=== PATIENT | male | born 1945 | race Caucasian/White ===

== ENCOUNTER → 2018-01-08 10:12 | Outpatient (CLI) | payer MEDICARE, SELFPAY ==
[2018-01-08 11:51] LABS: AST(SGOT) 23 U/L (15-37); Alanine Aminotransfer ALT/SGPT 29 U/L (16-61); Albumin, Serum 3.8 g/dL (3.2-5.0); Alkaline Phosphatase 61 U/L (45-117); Bilirubin, Direct 0.11 mg/dL (0.00-0.30); Cholesterol 167 mg/dL (200); Globulin 3.5 g/dL (2.2-4.2); High Density Lipoprotein 45 mg/dL; Protein, Total 7.3 g/dL (6.4-8.2); Triglycerides 201 mg/dL; Very Low Density Lipoprotein 40 mg/dL (5-40)
== END ==
PROVIDERS: Family Provider Internal Medicine; PCP Internal Medicine; Visit Provider Internal Medicine Cardiovascular Disease
DX: E78.5 Hyperlipidemia, unspecified (principal); Z79.899 Other long term (current) drug therapy
CPT/HCPCS: 36415; 80061; 80076

== ENCOUNTER → 2018-09-30 | Outpatient (CLI) | payer MEDICARE, SELFPAY ==
[2018-09-15 13:31] VITALS: BMI 23.8
[2018-09-30 12:56] LABS: AST(SGOT) 22 U/L (15-37); Alanine Aminotransfer ALT/SGPT 26 U/L (16-61); Albumin, Serum 3.8 g/dL (3.2-5.0); Alkaline Phosphatase 62 U/L (45-117); Bilirubin, Direct 0.08 mg/dL (0.00-0.30); Cholesterol 160 mg/dL (200); Globulin 3.3 g/dL (2.2-4.2); High Density Lipoprotein 47 mg/dL; Protein, Total 7.1 g/dL (6.4-8.2); Triglycerides 220 mg/dL; Very Low Density Lipoprotein 44 mg/dL (5-40)
== END | disposition home or self-care (01) ==
PROVIDERS: Family Provider Internal Medicine; PCP Internal Medicine; Referring Provider Internal Medicine Cardiovascular Disease; Visit Provider Internal Medicine Cardiovascular Disease
DX: E78.00 Pure hypercholesterolemia, unspecified (principal)
CPT/HCPCS: 36415; 80061; 80076

== ENCOUNTER → 2019-04-04 | Outpatient (CLI) | payer MEDICARE, SELFPAY ==
[2018-09-15 13:31] VITALS: BMI 23.8
[2019-04-04 12:08] LABS: AST(SGOT) 21 U/L (15-37); Alanine Aminotransfer ALT/SGPT 25 U/L (16-61); Albumin, Serum 3.8 g/dL (3.2-5.0); Alkaline Phosphatase 60 U/L (45-117); Bilirubin, Direct 0.09 mg/dL (0.00-0.30); Cholesterol 125 mg/dL (200); Globulin 3.5 g/dL (2.2-4.2); High Density Lipoprotein 52 mg/dL; Protein, Total 7.3 g/dL (6.4-8.2); Triglycerides 146 mg/dL; Very Low Density Lipoprotein 29 mg/dL (5-40)
== END | disposition home or self-care (01) ==
PROVIDERS: Family Provider Internal Medicine; PCP Internal Medicine; Referring Provider Internal Medicine Cardiovascular Disease; Visit Provider Internal Medicine Cardiovascular Disease
DX: E78.00 Pure hypercholesterolemia, unspecified (principal)
CPT/HCPCS: 36415; 80061; 80076

== ENCOUNTER → 2019-10-05 11:12 | Outpatient (CLI) | payer MEDICARE, SELFPAY ==
[2019-04-07 10:16] VITALS: BMI 23.5
[2019-10-05 11:51] LABS: AST(SGOT) 35 U/L (15-37); Alanine Aminotransfer ALT/SGPT 42 U/L (16-61); Albumin, Serum 3.9 g/dL (3.2-5.0); Alkaline Phosphatase 70 U/L (45-117); Bilirubin, Direct 0.11 mg/dL (0.00-0.30); Cholesterol 155 mg/dL (200); Globulin 3.5 g/dL (2.2-4.2); High Density Lipoprotein 48 mg/dL; Protein, Total 7.4 g/dL (6.4-8.2); Triglycerides 205 mg/dL; Very Low Density Lipoprotein 41 mg/dL (5-40)
== END ==
PROVIDERS: PCP Internal Medicine; Referring Provider Internal Medicine Cardiovascular Disease; Visit Provider Internal Medicine Cardiovascular Disease
DX: E78.00 Pure hypercholesterolemia, unspecified (principal)
CPT/HCPCS: 36415; 80061; 80076

== ENCOUNTER → 2020-10-10 11:32 | Outpatient (CLI) | payer MEDICARE, SELFPAY ==
[2019-11-07 10:02] VITALS: BMI 22.8
[2020-10-10 13:04] LABS: AST(SGOT) 18 U/L (15-37); Alanine Aminotransfer ALT/SGPT 21 U/L (16-61); Albumin, Serum 3.8 g/dL (3.2-5.0); Alkaline Phosphatase 56 U/L (45-117); Bilirubin, Direct 0.13 mg/dL (0.00-0.30); Cholesterol 148 mg/dL (200); Globulin 3.3 g/dL (2.2-4.2); High Density Lipoprotein 52 mg/dL; Protein, Total 7.1 g/dL (6.4-8.2); Triglycerides 170 mg/dL; Very Low Density Lipoprotein 34 mg/dL (5-40)
== END ==
PROVIDERS: PCP Internal Medicine; Referring Provider Internal Medicine Cardiovascular Disease; Visit Provider Internal Medicine Cardiovascular Disease
DX: E78.00 Pure hypercholesterolemia, unspecified (principal)
CPT/HCPCS: 36415; 80061; 80076

== ENCOUNTER 2021-02-11 11:34 | Day surgery (SDC) | payer MEDICARE, SELFPAY ==
[2020-10-18 14:57] VITALS: BMI 23.8
--- NOTE | 2021-02-11 11:58 | HP.PCM_ITS ---
History and Physical Date of Admission: 02/11/21 Aquiles Cox is a 75 year old male who is scheduled for Outpatient Colonoscopy (denies any current problems) and GERD (but symptoms are improved with daily pepcid daily) ? ? The patient was seen by 12/04/2015?for colonoscopy and upper endoscopy for symptoms heme positive. ?The procedures were performed with MAC sedation. The procedure report has been reviewed and findings as follows: ? Impression: Need transverse follow-up, biopsied off. Sigmoid and descending diverticulosis Impression: Normal upper gastrointestinal endoscopy, lower esophageal sphincter at 40 cm. Biopsies were taken for histology and H. Pylori Pathology: A. Gastric antrum, biopsy: Chronic gastritis.Negative H pylori B. Transverse colon polyp, biopsy: Fragments of tubular adenoma. -Recommended 5-year colonoscopy surveillance ? HISTORY OF PRESENT ILLNESS Aquiles Cox is a 75 year old male with a past medical history GERD, CAD-none angiographically significant, Prinzmetal/vasospastic angina, ventricular fibrillation, cardiac arrest, ischemic cardiomyopathy (with preserved LV wall motion/systolic function), status post ICD placement (2000 with generator change in 2015), seizures, dementia ? who presents today for an evaluation of colon cancer screening. is with patient and answering questions d/t patient history of dementia. Patient does not answer questions but does follow simple commands. ? The patient/ denies change in bowel habits, black stool, rectal bleeding or abdominal pain. Having a bowel movement every 3-4 days which reports this is patient's normal. Reports patient does wear depends because he does not recognize the feeling of needing to have a bowel movement or urinate until last minute he rushes to the bathroom, at times will not make on time. states no black stool or blood in stool. Denies change in appetite. Denies fever or chills or weight loss. Denies coughing or clearing of the throat while eating regurg or hoarseness. Reports he has a history or heartburn with regurgitation and was placed on pepcid a long time ago. ? ? REVIEW OF SYSTEMS: GENERAL: No weight loss, malaise or fevers HEENT: Negative for frequent or significant headaches, No changes in hearing or vision, no nose bleeds or other nasal problems NECK: Negative for lumps, goiter, pain and significant neck swelling RESPIRATORY: Negative for cough, hemoptysis, wheezing, COPD, dyspnea or shortness of breath CARDIOVASCULAR: Negative for chest pain, leg swelling, hypertension, CHF or palpitations, patient does have a defibrillator GI: See HPI : No history of dysuria, frequency or incontinence MUSCULOSKELETAL: Negative for joint pain or swelling, back pain or muscle pain SKIN: Negative for lesions, rash, and itching PSYCH: Patient has a history of dementia with hallucinations HEMATOLOGY/LYMPHOLOGY Negative for prolonged bleeding, bruising easily or swollen nodes ENDOCRINE: Negative for cold or heat intolerance, polyuria, polydipsia and goiter NEURO: Seizures- reports it's been a long time ago since last seizure - when he does have a seizure he stares All other reviewed and negative other than HPI.WORKUP:[id number]} PAST MEDICAL HISTORY PAST MEDICAL HISTORY Diagnosis Date ? CARD DEFIBRILL AUTO IMPLANT IN SITU 01/02/2005 ? Dementia, unspecified, with behavioral disturbance 08/24/2013 ? ENCEPHALOPATHY UNSPECIFIED 01/02/2005 ? ANOXIC ? GEN CONVUL EPI W/O MENTN INTRACT 01/02/2005 ? HEMANGIOMA NEC 01/02/2005 ? Hematuria 04/27/2014 ? Hyperactivity of bladder 11/22/2009 ? HYPERLIPIDEMIA NEC/NOS 01/02/2005 ? HYPERTENSION NOS 01/02/2005 ? 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 Orofacial dyskinesia 01/02/2005 ? PRINZMETAL ANGINA 01/02/2005 ? URINARY INCONTINENCE, UNSPECIFIED 01/02/2005 ? BLADDER DYSYNERGIA ? PAST SURGICAL HISTORY PAST SURGICAL HISTORY Procedure Laterality Date ? COLONOSCOP W/ OR W/O BRSH SPEC ? 09/02/2004 ? Colonoscopy ? CYSTOSCOPY,INDUSTRIAL COOK URETHROTOMY,MALE ? 03/02/02 ? CYSTOSCOPY,INDUSTRIAL COOK URETHROTOMY,MALE ? 04/16/2005 ? IMPLNT/REPL DEFIB PAD/GENER THORCOTM ? 06/2015 ? replaced. ? IMPLNT/REPL DEFIB PAD/THORACOT ? 09/17/2006 ? AICD replaced. ? INSERT/REPL DEFIB LEAD/GENER OTHR ? 05/2000 ? AICD ? LEFT HEART CATH,PERCUTANEOUS ? 12/30/2006 ? Cardiac cath, L heart ? CURRENT MEDICATIONS Current Outpatient Medications Medication Sig Dispense Refill ? traZODone (DESYREL) 100 mg tablet Take 1 tablet by mouth daily at bedtime. 90 tablet 3 ? lamoTRIgine (LAMICTAL) 100 mg tablet Take 1 tablet by mouth once daily. 90 tablet 3 ? famotidine (PEPCID) 20 mg tablet Take 1 tablet by mouth once daily. Take 1 tablet by mouth 1-2 times daily 90 tablet 3 ? oxybutynin ER (DITROPAN XL) 15 mg 24 hr Extended Rel Tab Take 1 tablet by mouth once daily. 90 tablet 3 ? pravastatin (PRAVACHOL) 80 mg tablet Take 1 tablet by mouth once daily. 90 tablet 3 ? OLANZapine (ZYPREXA) 7.5 mg tablet Take 1 tablet by mouth daily at bedtime. 90 tablet 3 ? amLODIPine (NORVASC) 2.5 mg tablet Take 1 tablet by mouth once daily. 90 tablet 3 ? diphenhydrAMINE (BENADRYL) 12.5 mg/5 mL elixir Take 10 mL by mouth three times daily as needed (agitation.). ? ? ? MULTIVITAMIN TAB Take one(1) tablet daily. ? 0 ? CALCIUM 600 + D(3) 600 MG-200 UNIT TAB Take one(1) tablet twice daily. ? 0 ? ASPIRIN 325 MG ORAL TBEC Take one(1) tablet daily. ? 0 ? peg 3350-Electrolytes (GOLYTELY) 236-22.74-6.74 -5.86 gram suspension Take 4,000 mL by mouth one time only for 1 dose. Refer to printed prep instructions from your provider. 1 Bottle 0 ? No current facility-administered medications for this visit. ? ? ALLERGIES ALLERGIES Allergen Reactions ? Actifed [Triprolidi* ? ? ? SOCIAL HISTORY Social History ? Tobacco Use ? Smoking status: Former Smoker ? ? Quit date: 05/28/2000 ? ? Years since quittin.5 ? Smokeless tobacco: Never Used Vaping Use ? Vaping Use: Never used Substance Use Topics ? Alcohol use: No ? ? Comment: 10-12 per day, quit 2000 ? Drug use: No ? ? FAMILY HISTORY (grandparents, parents, brothers, sisters, aunts, or uncles) Ulcerative Colitis: No Crohn's Disease: No Colon Cancer: No Colon Polyps: No IBS: No Celiac disease: No ? PHYSICAL EXAMINATION BP 108/58 Pulse 73 Ht 5' 6.535 (1.69m) Wt 144 lb (65.3kg) SpO2 97% BMI 22.87 kg/(m^2). ? General Appearance: Well appearing, alert, in no acute distress, well-hydrated, well nourished. Eyes: PERRLA, conjunctiva and sclera normal Oropharynx: Lips, tongue, and oral mucosa normal. There is no thrush or oral ulcers. Lungs:breath sounds clear to auscultation bilaterally, no crackles, rhonchi, or wheezes Heart: regular rate and rhythm, no murmurs or gallops. Abdomen: not distended, normal bowel sounds, soft and depressible, no guarding or rebound, no palpable mass, no organomegaly Rectal exam: Deferred. Extremities: no cyanosis or edema Skin: no jaundice, no spider angiomas, no palmar erythema Neuro:alert, oriented x 3, pleasant and in no acute distress ? ? IMPRESSION (D12.3) Adenomatous polyp of transverse colon (primary encounter diagnosis) ? ? ? PLAN ASSESSMENT/PLAN: 1. Adenomatous polyp of transverse colon - ICD9: 211.3, ICD10: D12.3 - COLONOSCOPY, SCREENING, HIGH RISK - patient will need to have cardiac clearance before scheduling colonoscopy - Patient will have procedure done at [facility] with MAC sedation ? ? Plan is to follow up after test(s) and as needed (prn). This patient will be scheduled for a colonoscopy using Golytely as the prep. The preparation, as well as the procedure, has been explained in detail. The risks, benefits, anticipated outcomes and possible complications, including failure to complete the endoscopy and perforation, were mentioned. ?I explained the procedure in understandable terms and the patient was given printed material concerning the planned procedure. The patient had the opportunity to ask questions concerning the planned procedure. The patient freely consents to the planned procedure. ? The patient is instructed to contact PCP for instructions regarding diabetic medication, which may require adjustment during bowel preparation and/or day of procedure. ? The patient is scheduled for a procedure at the [facility]. I have explained that his/her health and safety, as well as that of our staff is important. The risk of exposure to, or potential harm posed by the COVID-19 virus with having a procedure at this time is as minimal as possible. Measures are being taken to minimize any potential risk of infection. I have explained that he/she will see that the staff will be wearing masks and gloves. The patient's temperature will be taken on arrival, they will be asked a series of questions to reassess current wellness, and asked to use hand administrative aide foam. The bed areas are cleaned and the procedure rooms are thoroughly disinfected between patients. Procedure rooms will be alternated to give the disinfection more than enough time to ensure adequate protection for all involved. ? The patient is asked to call with any questions for concerns, or should there be any change in health status between now and the scheduled procedure. ? I have personally interviewed and examined this patient. I have read the information the nurse documented in this encounter. I spent a total of?at least 30?minutes on the date of the service which included completing clinical documentation, counseling and educating the patient/family/caregiver, ordering medications, tests, or procedures and care coordination (not separately reported). ? Magalis Jorgensen APRN.COMMUNICATION INSTRUCTOR I have re-examined the patient. There are no clinical changes since date of exam.
[2021-02-11 12:00] VITALS: BP 110/73; PULSE 72; RESP 18; TEMP 36.4; O2SAT 98; BMI 22.0
[2021-02-11] MEDS: Lactated Ringers 1,000 ML 100 ML IV (12:16)
[2021-02-11 13:26] VITALS: BP 110/73; BP 137/77; PULSE 56; RESP 16; TEMP 36.6; O2SAT 95
--- NOTE | 2021-02-11 13:26 | OP.COLON_ITS ---
Patient Name: Aquiles Cox Procedure Date: 02/11/2021 12:50 PM Date of : 1945 Age: 75 Procedure: Colonoscopy Indications: High risk colon cancer surveillance: Personal history of colonic polyps Providers: Phong Beebe MD Medicines: See the Anesthesia note for documentation of the administered medications Patient Profile: This is a 75 year old male. Refer to note in patient chart for documentation of history and physical. Last Colonoscopy: 2015. Complications: No immediate complications. Estimated blood loss: None. Procedure: Pre-Anesthesia Assessment: - Prior to the procedure, a History and Physical was performed, and patient medications and allergies were reviewed. The patient's tolerance of previous anesthesia was also reviewed. The risks and benefits of the procedure and the sedation options and risks were discussed with the patient. All questions were answered, and informed consent was obtained. Prior Anticoagulants: The patient has taken aspirin, last dose was 7 days prior to procedure. ASA Grade Assessment: III - A patient with severe systemic disease. After reviewing the risks and benefits, the patient was deemed in satisfactory condition to undergo the procedure. After I obtained informed consent, the scope was passed under direct vision. Throughout the procedure, the patient's blood pressure, pulse, and oxygen saturations were monitored continuously. The adult colonoscope was introduced through the anus and advanced to the cecum, identified by appendiceal orifice and ileocecal valve. The colonoscopy was performed without difficulty. The patient tolerated the procedure well. The quality of the bowel preparation was adequate to identify polyps 6 mm and larger in size. Scope In: 1:07:10 PM Scope Withdrawal Time 0 hours 6 minutes 40 seconds Scope Out: 1:20:35 PM Total Procedure Duration Time 0 hours 13 minutes 25 seconds Findings: Multiple small and large-mouthed diverticula were found in the sigmoid colon and descending colon. No biopsies or other specimens were collected for this exam. Non-bleeding internal hemorrhoids were found during retroflexion. The hemorrhoids were mild and small. Impression: - Diverticulosis in the sigmoid colon and in the descending colon. No specimens collected. - Non-bleeding internal hemorrhoids. Recommendation: - Repeat colonoscopy in 10 years for screening purposes. - Return to nurse practitioner in 1 week. - Continue present medications. - Resume aspirin at prior dose today. Procedure Code(s): --- Professional --- 96336, Colonoscopy, flexible; diagnostic, including collection of specimen(s) by brushing or washing, when performed (separate procedure) Diagnosis Code(s): --- Professional --- Z86.010, Personal history of colonic polyps K64.8, Other hemorrhoids K57.30, Diverticulosis of large intestine without perforation or abscess without bleeding CPT copyright 2017 [employer]. All rights reserved. The codes documented in this report are preliminary and upon sample grader review may be revised to meet current compliance requirements. MD Phong Roper MD 02/11/2021 1:26:10 PM This report has been signed electronically. Number of Addenda: 0 Note Initiated On: 02/11/2021 12:50 PM
--- NOTE | 2021-02-11 13:26 | OP.CCLET_ITS ---
02/11/2021 Juwan Ac [address] [place] [address] Re : Colonoscopy procedure for Aquiles Cox Dear Dr. Ac This procedure was performed on Thursday, February 11, 2021. My impressions and recommendations are as follows: Impressions : - Diverticulosis in the sigmoid colon and in the descending colon. No specimens collected. - Non-bleeding internal hemorrhoids. Recommendations : - Repeat colonoscopy in 10 years for screening purposes. - Return to nurse practitioner in 1 week. - Continue present medications. - Resume aspirin at prior dose today. My findings are described in the full procedure note, which is enclosed. If I can be of further assistance, please feel free to contact me at Doctor phone number(s): , Work: . Sincerely, MD Phong Roper MD 02/11/2021 1:26:10 PM This report has been signed electronically.
[2021-02-11 13:31] VITALS: BP 110/73; BP 114/72; PULSE 56; RESP 16; O2SAT 98
[2021-02-11 13:36] VITALS: BP 110/73; BP 126/65; PULSE 53; RESP 16; O2SAT 97
[2021-02-11 13:40] VITALS: BP 110/73; BP 132/69; PULSE 53; RESP 16; TEMP 36.2; O2SAT 98
[2021-02-11 14:14] VITALS: BP 110/73
== END 2021-02-11 14:15 | disposition home or self-care (01) ==
LOC: EN 11:35 → AC 11:36
PROVIDERS: PCP Internal Medicine; Referring Provider Internal Medicine; Visit Provider Surgery
PROC: 0DJD8ZZ Inspection of Lower Intestinal Tract, Via Natural or Artificial Opening Endoscopic (ICD-10-PCS; CPT 45378; principal; 2021-02-11 12:40)
DX: K57.30 Diverticulosis of large intestine without perforation or abscess without bleeding (principal); K64.8 Other hemorrhoids; Z86.010 Personal history of colon polyps; Z12.11 Encounter for screening for malignant neoplasm of colon; K21.9 Gastro-esophageal reflux disease without esophagitis; I25.10 Atherosclerotic heart disease of native coronary artery without angina pectoris; F03.90 Unspecified dementia, unspecified severity, without behavioral disturbance, psychotic disturbance, mood disturbance, and anxiety; I10 Essential (primary) hypertension; Z95.810 Presence of automatic (implantable) cardiac defibrillator; Z79.899 Other long term (current) drug therapy; Z87.891 Personal history of nicotine dependence
CPT/HCPCS: 45378; J7120; J2405

== ENCOUNTER 2021-03-20 19:15 | Emergency (ER) | payer MEDICARE, SELFPAY ==
[2021-03-20 19:16] VITALS: BP 130/61; PULSE 64; RESP 15; TEMP 35.5; O2SAT 100; BMI 22.7
--- NOTE | 2021-03-20 19:22 | RAD_ITS ---
STUDY: XR Wrist Min 3 Views REASON FOR EXAM: Male, 75 years old. PAIN PAIN THROUGH CENTER OF LEFT WRIST. PATIENT DID NOT REMEMBER FALLING, THE PERSON WITH THE PATIENT EXPLAINED HX. TECHNIQUE: XR Wrist Min 3 Views COMPARISON: None. FINDINGS: There is demineralization of the radius and ulna. There are no acute findings of the radiocarpal articulation. Normal distal radioulnar articulation. Normal carpal bones. Normal carpal articulations. There are no acute findings of the carpometacarpal articulation of the thumb. Normal second through fifth carpometacarpal articulations. Fracture distal radial metaphysis. There is mild impaction. There are no acute findings of the visualized metacarpal bones. There is non-specific soft tissue swelling. RAD/Wrist min 3 Views IMPRESSION: Fracture distal radial metaphysis. There is mild impaction. Electronically Signed: Tacos Araya MD at 19:45 EDT , Service support ,
--- NOTE | 2021-03-20 19:22 | CT_ITS ---
STUDY: CT BRAIN WITHOUT CONTRAST REASON FOR EXAM: Male, 75 years old. FALL Individualized dose optimization techniques were used for this CT. TECHNIQUE: Transaxial CT imaging of the brain was performed without administration of intravenous contrast material. COMPARISON: 11.03.13 FINDINGS: There are calcifications around the carotid artery. These are noted in the cavernous carotid arteries. Normal calvarium. There is no underlying fracture. Soft tissue swelling of the scalp- right forehead. There is moderate cerebral atrophy with widening of the extra-axial spaces and ventricular dilatation. Normal white matter tracts of the cerebral hemispheres. Normal basal ganglia and thalami. Normal brainstem. There is mild cerebellar atrophy. There is no intracranial hemorrhage. There are no findings of an acute ischemic infarction. Normal visualized paranasal sinuses. ASPECTS Score for Acute Strokes: 02/24 CT/Brain/Head without Contrast IMPRESSION: There is no underlying fracture. Soft tissue swelling of the scalp- right forehead. Electronically Signed: Tacos Araya MD at 19:56 EDT , Service support ,
--- NOTE | 2021-03-20 19:22 | CT_ITS ---
EXAM: CT SPINE - CERVICAL WITHOUT IV REASON FOR EXAM: Male, 75 years old. NECK PAIN FALL,HEAD INJURY Individualized dose optimization techniques were used for this CT. TECHNIQUE: Multiplanar images were obtained of the cervical spine. IV contrast was not utilized. COMPARISON: None. FINDINGS: The vertebral bodies do maintain their height. The odontoid process is intact. There is no anterolisthesis or fracture. No pre-vertebral soft tissue swelling is seen. The intravertebral disc height is lost. There are scattered lymph nodes in the neck. There are degenerative changes of the osseous structures. There is bilateral facet arthropathy. There are scattered levels of foraminal stenosis. CT/Spine Cervical without Contras IMPRESSION: Degenerative changes of the cervical spine. There are no acute findings. Electronically Signed: Tacos Araya MD at 19:56 EDT , Service support ,
--- NOTE | 2021-03-20 21:00 | EDS_ITS ---
HPI HPI - Fall History of Present Illness Chief Complaint: Fall Informant: spouse/S.O. Narrative Narrative: Patient presents here with spouse evaluation unwitnessed fall head laceration left wrist pain. Patient [id number]. History of dementia. Per spouse patient likes to go outside in the cold and run back in. She heard him fall inside the house. Tetanus is in the last 5 years. There is laceration of the forehead. He takes aspirin therapy. Patient currently baseline. Reports recent left wrist fracture followed by orthopedics Dr. Vazquez just had cast removed a week ago. Images performed at outside facility. Tetanus Immunization: <5 years Prior similar symptoms: Yes PFSH PFSH Medical History Atherosclerotic heart disease of [place] coronary artery without angina pectoris Cardiology follow-up encounter Closed left forearm fracture Former smoker Gastric reflux High cholesterol History of echocardiogram History of renal disease History of stress test Hyperlipidemia Hypertension Ischemic cardiomyopathy Memory deficit Nonspecific abnormal unspecified cardiovascular function study Presence of automatic implantable cardioverter-defibrillator Prinzmetal angina Prostate disease Pure hypercholesterolemia Seizures Ventricular fibrillation Wears dentures Home Medications amlodipine 2.5 mg PO DAILY 07/04/15 [History Last Taken 07/05/15] aspirin 325 mg PO DAILY@0800 07/04/15 [History Last Taken Unknown] calcium carbonate-vitamin D3 1 ea PO BID 07/04/15 [History Last Taken Unknown] famotidine 20 mg PO DAILY 07/04/15 [History Last Taken Unknown] multivitamin with folic acid 1 tab PO QHS 07/04/15 [History Last Taken Unknown] oxybutynin chloride 15 mg PO DAILY 07/04/15 [History Last Taken 07/05/15] trazodone 100 mg PO QHS 07/04/15 [History Last Taken Unknown] olanzapine 7.5 mg PO QHS 12/03/15 [History Last Taken Unknown] pravastatin 80 mg tablet 80 mg PO QHS #90 tab 12/28/17 [Rx Last Taken Unknown] lamotrigine 100 mg tablet 100 mg PO DAILY tab 09/15/18 [History Last Taken Unknown] diphenhydramine HCl [Benadryl] 25 mg PO Q6H PRN 02/07/21 [History Last Taken Unknown] Allergy/AdvReac Type Severity Reaction Status Date / Time pseudoephedrine Allergy SEVERE Verified 03/20/21 19:19 HEADACHE triprolidine Allergy SEVERE Verified 03/20/21 19:19 HEADACHE Family History Mother CAD (coronary artery disease) Surgical History History of cardiac catheterization History of esophagogastroduodenoscopy (EGD) History of hemorrhoidectomy History of shoulder surgery History of tonsillectomy Hx of colonoscopy Social History Smoking Status: Former smoker alcohol intake: never substance use type: does not use caffeine: Yes Type: coffee Number of servings: 10 what type of physical activity do you participate in: none seatbelt use: always do you feel safe at home: Yes ROS ROS ED Constitutional Constitutional ED: Denies chills, fever(s) or sweats Eyes Eyes: Denies change in vision ENT ENT ED: Denies dysphagia or sore throat Cardiovascular Cardiovascular: Denies chest pain, leg edema, palpitations or racing heartbeat Respiratory/Chest Respiratory/Chest: Denies cough, dyspnea or dyspnea on exertion Gastrointestinal Gastrointestinal: Denies abdominal pain, diarrhea, nausea or vomiting Genitourinary Genitourinary ED: Denies dysuria, hematuria or urinary frequency Musculoskeletal Musculoskeletal: Denies back pain, extremity pain or neck pain Integumentary Denies rash or wounds Neurologic Neurologic: Denies headache(s), paresthesias or weakness EXAM Physical Exam Const Vital Signs: 03/20/21 19:16 03/20/21 20:19 03/20/21 21:39 Temperature 96 F L Temperature Source Temporal Pulse Rate 64 57 L Respiratory Rate 15 14 Respiratory Effort Normal Non-Labored Respiratory Depth Normal Respiratory Pattern Normal Blood Pressure 130/61 H 143/64 H Blood Pressure Mean 84 90 Pulse Ox 100 Oxygen Delivery Method Room Air Room Air Room Air 03/20/21 22:45 Temperature Temperature Source Pulse Rate 66 Respiratory Rate 16 Respiratory Effort Respiratory Depth Respiratory Pattern Blood Pressure 153/79 H Blood Pressure Mean Pulse Ox 99 Oxygen Delivery Method Positive well nourished and well developed General Appearance ED: well developed and NAD HEENT Reports moist mucous membranes HEENT Narrative: Contusion right side of forehead with a 1 cm laceration with swelling. No active bleeding. Swelling over the nasal bridge. No septal hematoma. normocephalic Eyes PERRL, EOMs intact bilaterally and conjunctivae normal Eyes Narrative: No proptosis or entrapment. No periorbital ecchymosis. No trismus of the jaw. General Eye ED: Yes normal appearance of both eyes Neck no lymphadenopathy and supple General: Negative for tenderness Chest Wall Chest: Negative for tenderness Resp normal respiratory effort and normal air movement Effort and Inspection: symmetric chest movement; Negative for respiratory distress Cardio regular rate, regular rhythm and no murmurs Peripheral Pulses: pulses 2+ throughout GI normal to inspection, nondistended, normoactive bowel sounds and non-tender Palpation: Negative for guarding or rebound tenderness present Back/Spine no CVA tenderness and no thoracic nor lumbar tenderness Extremity Extremity Narrative: Left upper extremity: No elbow or wrist tenderness. Skin intact. Neurovascular intact. General Extremety ED: Negative for edema or tenderness General Extremity: Negative for edema Neuro no sensory deficits noted Neuro Narrative: Awake, baseline dementia. Sensorium / Orientation: awake Skin no rashes or lesions noted and no wounds MDM MDM MDM Narrative Medical decision making narrative: Tetanus is the last 5 years. Patient had orders from triage with head and neck CT shows no acute process. Left wrist was obtained noted per radiology distal impacted radius fracture. He had no bony tenderness with additional inspiration from spouse reporting recent fracture cast removed a week ago after a 6-week casting. This is likely healing fracture at this point. He is neurovascular intact. Laceration repaired. Wound care discussed with spouse. Follow-up with PCP 5 to 7 days for suture removal. All questions answered. Procedure note: Verbal consent from spouse. Normal sterile conditions. LET topically was placed. Wound was cleansed with normal saline. Closed with a total of 2, 6-0 nylon sutures simple interrupted with good approximation. Patient taught procedure well. Bacitracin placed over the wound and abrasions. Patient tolerate procedure well. Radiography Diagnostic Testing: Clinical Impression(s) from Imaging Studies Brain CT 03/20/21 19:22 IMPRESSION: There is no underlying fracture. Soft tissue swelling of the scalp- right forehead. Electronically Signed: Tacos Araya MD at 19:56 EDT , Service support , Cervical Spine CT 03/20/21 19:22 IMPRESSION: Degenerative changes of the cervical spine. There are no acute findings. Electronically Signed: Tacos Araya MD at 19:56 EDT , Service support , Wrist X-Ray 03/20/21 19:22 IMPRESSION: Fracture distal radial metaphysis. There is mild impaction. Electronically Signed: Tacos Araya MD at 19:45 EDT , Service support , Discharge Plan Triage Chief Complaint: Fall ED Provider: Paulo Mitchell Dx/Rx/DC Orders Clinical Impression: Simple laceration of face, Abrasion, Closed fracture of left wrist, Closed head injury, Dementia Instructions: ED Head Injury (Adult), ED Laceration: All Closures Prescriptions: No Action oxybutynin chloride 15 MG tablet extended release 24hr 15 mg PO DAILY RF: 0 trazodone 50 MG tablet 100 mg PO QHS RF: 0 aspirin 325 MG tablet 325 mg PO DAILY@0800 RF: 0 amlodipine 2.5 MG tablet 2.5 mg PO DAILY RF: 0 famotidine 20 MG tablet 20 mg PO DAILY RF: 0 multivitamin with folic acid 1 TABLET tablet 1 tab PO QHS RF: 0 calcium carbonate-vitamin D3 1 EACH tablet 1 ea PO BID RF: 0 lamotrigine 100 mg tablet 100 mg PO DAILY RF: 0 olanzapine 7.5 MG tablet 7.5 mg PO QHS RF: 0 diphenhydramine HCl [Benadryl] 25 mg Capsule 25 mg PO Q6H PRN (Reason: ALLERGIES) RF: 0 pravastatin 80 mg tablet 80 mg PO QHS Qty: 90 RF: 3 Primary Care Provider: Juwan Ac Referrals: Juwan Ac MD [Primary Care Provider] - 5-7 Days Activity Restrictions/Additional Instructions: Head and neck CAT scan negative for acute process. Left wrist x-ray reported impacted fracture, no old for comparison, you report he had his cast for 6 weeks taken off a week ago. There is no pain in this region currently. This is a healing fracture at this point. 2 sutures placed on the forehead. Follow-up with PCP in 5 to 7 days for suture removal. Disposition Disposition: Home, Self Care Discharge Date/Time: 03/20/21 22:47
[2021-03-20] MEDS: Lidocaine/Epi/Tetracaine 50 ML 1 APPLIC TOPICAL (21:05)
[2021-03-20 21:39] VITALS: BP 143/64; PULSE 57; RESP 14
[2021-03-20 22:45] VITALS: BP 153/79; PULSE 66; RESP 16; O2SAT 99
== END 2021-03-20 22:47 | disposition home or self-care (01) ==
LOC: ED 20:51
PROVIDERS: Emergency Provider Emergency Medicine; PCP Internal Medicine
DX: S01.81XA Laceration without foreign body of other part of head, initial encounter (principal); S52.502D Unspecified fracture of the lower end of left radius, subsequent encounter for closed fracture with routine healing; F03.90 Unspecified dementia, unspecified severity, without behavioral disturbance, psychotic disturbance, mood disturbance, and anxiety; I25.10 Atherosclerotic heart disease of native coronary artery without angina pectoris; K21.9 Gastro-esophageal reflux disease without esophagitis; E78.5 Hyperlipidemia, unspecified; I10 Essential (primary) hypertension; Z79.899 Other long term (current) drug therapy; Z87.891 Personal history of nicotine dependence; W18.30XA Fall on same level, unspecified, initial encounter; Y93.89 Activity, other specified; Y92.008 Other place in unspecified non-institutional (private) residence as the place of occurrence of the external cause; Y99.8 Other external cause status; X58.XXXD Exposure to other specified factors, subsequent encounter
CPT/HCPCS: 12011; 70450; 72125; 73110; 99283

== ENCOUNTER → 2021-04-22 13:11 | Outpatient (CLI) | payer MEDICARE, SELFPAY ==
[2021-04-22 13:54] LABS: AST(SGOT) 19 U/L (15-37); Alanine Aminotransfer ALT/SGPT 29 U/L (16-61); Albumin, Serum 3.9 g/dL (3.2-5.0); Alkaline Phosphatase 73 U/L (45-117); Bilirubin, Direct 0.14 mg/dL (0.00-0.30); Cholesterol 138 mg/dL (200); Globulin 3.3 g/dL (2.2-4.2); High Density Lipoprotein 57 mg/dL; Protein, Total 7.2 g/dL (6.4-8.2); Triglycerides 142 mg/dL; Very Low Density Lipoprotein 28 mg/dL (5-40)
== END ==
PROVIDERS: PCP Internal Medicine; Referring Provider Internal Medicine Cardiovascular Disease; Visit Provider Internal Medicine Cardiovascular Disease
DX: E78.00 Pure hypercholesterolemia, unspecified (principal)
CPT/HCPCS: 36415; 80061; 80076

== ENCOUNTER → 2021-10-22 | Outpatient (CLI) | payer MEDICARE, SELFPAY ==
[2021-10-22 13:39] LABS: AST(SGOT) 26 U/L (15-37); Alanine Aminotransfer ALT/SGPT 27 U/L (16-61); Albumin, Serum 3.5 g/dL (3.2-5.0); Alkaline Phosphatase 74 U/L (45-117); Bilirubin, Direct 0.09 mg/dL (0.00-0.30); Cholesterol 209 mg/dL (200); Globulin 3.3 g/dL (2.2-4.2); High Density Lipoprotein 52 mg/dL; Protein, Total 6.8 g/dL (6.4-8.2); Triglycerides 209 mg/dL; Very Low Density Lipoprotein 42 mg/dL (5-40)
== END | disposition home or self-care (01) ==
PROVIDERS: PCP Internal Medicine; Referring Provider Internal Medicine Cardiovascular Disease; Visit Provider Internal Medicine Cardiovascular Disease
DX: E78.00 Pure hypercholesterolemia, unspecified (principal)
CPT/HCPCS: 36415; 80061; 80076

== ENCOUNTER → 2022-04-24 | Outpatient (CLI) | payer MEDICARE, SELFPAY ==
[2022-04-24 14:23] LABS: AST(SGOT) 21 U/L (15-37); Alanine Aminotransfer ALT/SGPT 30 U/L (16-61); Albumin, Serum 3.8 g/dL (3.2-5.0); Alkaline Phosphatase 64 U/L (45-117); Bilirubin, Direct 0.13 mg/dL (0.00-0.30); Cholesterol 148 mg/dL (200); Globulin 3.4 g/dL (2.2-4.2); High Density Lipoprotein 58 mg/dL; Protein, Total 7.2 g/dL (6.4-8.2); Triglycerides 146 mg/dL; Very Low Density Lipoprotein 29 mg/dL (5-40)
== END | disposition home or self-care (01) ==
LOC: LAB 12:54
PROVIDERS: PCP Internal Medicine; Referring Provider Internal Medicine Cardiovascular Disease; Visit Provider Internal Medicine Cardiovascular Disease
DX: I25.10 Atherosclerotic heart disease of native coronary artery without angina pectoris (principal); E78.00 Pure hypercholesterolemia, unspecified
CPT/HCPCS: 36415; 80061; 80076

== ENCOUNTER 2022-08-04 14:30 | Inpatient (IN) | payer MEDICARE, SELFPAY ==
[2022-08-04 14:34] VITALS: BP 157/63; PULSE 87; RESP 18; TEMP 36.7; O2SAT 98; BMI 25.7
--- NOTE | 2022-08-04 15:08 | CT_ITS ---
STUDY: CT BRAIN WITHOUT CONTRAST REASON FOR EXAM: Male, 77 years old. Trauma RADIATION DOSAGE (If Supplied By Facility): CTDIvol = ( 44.99 ) mGy, DLP = ( 812.98 ) mGycm TECHNIQUE: Transaxial CT imaging of the brain was performed without administration of intravenous contrast material. Individualized dose optimization techniques were used for this CT. COMPARISON: CT brain April 16, 2021 FINDINGS: Normal soft tissue structures. Normal calvarium. Normal size ventricles and extra-axial spaces for the patient''s age. There are areas of decreased attenuation within the white matter tracts of the supratentorial brain, consistent with microvascular disease changes. Normal basal ganglia and thalami. Normal brainstem. Normal cerebellum. There is no intracranial hemorrhage. There are no findings of an acute ischemic infarction. Normal visualized paranasal sinuses. CT/Brain/Head without Contrast IMPRESSION: Chronic involutional changes of the brain. Electronically Signed: Leroy Hernandez MD at 16:36 EDT ,
--- NOTE | 2022-08-04 15:08 | CT_ITS ---
STUDY: CT CERVICAL SPINE WITHOUT CONTRAST REASON FOR EXAM: Male, 77 years old. Trauma RADIATION DOSAGE (If Supplied By Facility): CTDIvol = ( 21.21 ) mGy, DLP = ( 427.8 ) mGycm TECHNIQUE: High resolution transaxial imaging was performed without contrast material. Sagittal and coronal images were reconstructed. Individualized dose optimization techniques were used for this CT. COMPARISON: CT cervical spine March 20, 2021 FINDINGS: Normal craniovertebral junction. Normal anterior atlantoaxial articulation. Normal odontoid process. Normal cervical lordosis. Normal vertebral bodies and posterior osseous elements. C2-3: Normal endplates. Normal disc height and morphology. Normal central canal and intervertebral neuroforamina. C3-4: Normal endplates. Decreased disc height and morphology. Normal central canal and narrowed left intervertebral neuroforamina. C4-5: Normal endplates. Decreased disc height and morphology. Normal central canal and narrows bilateral intervertebral neuroforamina. C5-6: Normal endplates. Decreased disc height and morphology. Normal central canal and narrows bilateral intervertebral neuroforamina. C6-7: Normal endplates. Decreased disc height and morphology. Normal central canal and narrows bilateral intervertebral neuroforamina. C7-T1: Normal endplates. Normal disc height and morphology. Normal central canal and intervertebral neuroforamina. Normal visualized soft tissue structures. Calcified plaque in the carotids bilaterally. CT/Spine Cervical without Contras IMPRESSION: No fracture Electronically Signed: Leroy Hernandez MD at 16:42 EDT ,
--- NOTE | 2022-08-04 15:13 | ED.VIS.FALL ---
HPI HPI - Fall History of Present Illness Chief Complaint: Fall Informant: patient, spouse/S.O. and family Narrative Narrative: History is from the patient, his , and his son-in-law. This patient fell out of a chair falling over to the left on Thursday. They helped him get back in and he fell again. He hit his head both times. But there is no loss of consciousness. No nausea and vomiting. However, since then he cannot seem to bear weight on his left leg and intermittently complains of pain at the left hip. Other than that he is at his baseline and acting normally. He has not been coughing. He is urinary really incontinent but this is not changed nor is there been a new odor. No coughing or trouble breathing. His appetite has been just slightly down but he is still eating and drinking. This patient has a history of Prinzmetal's angina going back many years. It sounds like he had a cardiac event that caused brain injury. He is alert oriented x1 most of the time. Occasionally he is a bit better. He is totally at his baseline per both of his family members. They states actually he is a little better today than his average. He knows he is in the hospital. That is not something he would always know. [facility] Medical History Atherosclerotic heart disease of [place] coronary artery without angina pectoris Cardiology follow-up encounter Closed left forearm fracture Former smoker Gastric reflux High cholesterol History of echocardiogram History of renal disease History of stress test Hyperlipidemia Hypertension Ischemic cardiomyopathy Memory deficit Nonspecific abnormal unspecified cardiovascular function study Presence of automatic implantable cardioverter-defibrillator Prinzmetal angina Prostate disease Pure hypercholesterolemia Seizures Ventricular fibrillation Wears dentures Home Medications amlodipine 2.5 mg tablet 2.5 mg PO DAILY 07/04/15 [History Last Taken 07/05/15] calcium carbonate 600 mg-vitamin D3 20 mcg (800 unit) tablet 1 ea PO BID 07/04/15 [History Last Taken Unknown] famotidine 20 mg tablet 20 mg PO DAILY 07/04/15 [History Last Taken Unknown] multivitamin with folic acid 400 mcg tablet 1 tab PO QHS 07/04/15 [History Last Taken Unknown] oxybutynin chloride 15 mg tablet,extended release 24 hr 15 mg PO DAILY 07/04/15 [History Last Taken 07/05/15] trazodone 50 mg tablet 100 mg PO QHS 07/04/15 [History Last Taken Unknown] olanzapine 7.5 mg tablet 7.5 mg PO QHS 12/03/15 [History Last Taken Unknown] pravastatin 80 mg tablet 80 mg PO QHS #90 tabs 12/28/17 [Rx Last Taken Unknown] lamotrigine 100 mg tablet 100 mg PO DAILY 09/15/18 [History Last Taken Unknown] diphenhydramine HCl 25 mg capsule (Benadryl) 25 mg PO Q6H PRN ALLERGIES 02/07/21 [History Last Taken Unknown] aspirin 81 mg tablet,delayed release (Adult Low Dose Aspirin) 81 mg PO DAILY 05/01/22 [History Last Taken Unknown] Allergy/AdvReac Type Severity Reaction Status Date / Time pseudoephedrine Allergy SEVERE Verified 08/04/22 14:38 HEADACHE triprolidine Allergy SEVERE Verified 08/04/22 14:38 HEADACHE Family History Mother CAD (coronary artery disease) Surgical History History of cardiac catheterization History of esophagogastroduodenoscopy (EGD) History of hemorrhoidectomy History of shoulder surgery History of tonsillectomy Hx of colonoscopy Social History Smoking Status: Former smoker alcohol intake: never substance use type: does not use caffeine: Yes Type: coffee Number of servings: 10 what type of physical activity do you participate in: none seatbelt use: always do you feel safe at home: Yes ROS ROS ED ROS Narrative History is limited as the patient has prior brain injury. Review is really done per family Constitutional Constitutional ED: Denies fever(s) ENT ENT ED: Denies rhinorrhea Respiratory/Chest Respiratory/Chest: Denies cough or sputum Gastrointestinal Gastrointestinal: Denies diarrhea or vomiting Genitourinary Genitourinary ED: Reports other Details: No change in the amount or odor of urine. ; Denies dysuria, hematuria or urinary frequency Musculoskeletal Musculoskeletal: Reports other Details: Appears to have left hip area pain. Integumentary Reports other Details: Contusion to left periorbital area. Hematologic/Lymphatic Hematologic/Lymphatic: Reports easy bleeding, easy bruising and other Details: They state that he does bruise easily. Only anticoagulation is baby aspirin. Allergic/Immunologic Allergic/Immunologic ED: Denies urticaria EXAM Physical Exam Narrative Exam Narrative: Patient is sitting in bed. He is awake and alert. He is not sleepy or lethargic. HEENT shows bruising mostly around the left eye. There is no tenderness or bony step-offs though. Eye shows no sign of subconjunctival hemorrhage or actual ocular injury. Range of motion seems intact. Neck is nontender. He will look around the room without any apparent discomfort. Chest shows a pacer ICD in the left. No chest wall tenderness or subcu air. Lungs are clear. Heart is regular. Peripheral pulses are equal. Abdomen is soft, nondistended normal bowel sounds and nontender. Extremities do show some pain around the left hip and pain with that area. He does not want to extend the hip. I can squeeze the distal femur knee and lower extremity and right lower extremity and both upper extremities without any discomfort. There is slight contusion on the left elbow area but no tenderness or limitation of motion Skin shows bruising as above. Neurologically he is awake and alert. He knows his name. He knows he is in a hospital. Family states that for him this is baseline or actually little better than he is on some days. Const Vital Signs: 08/04/22 14:34 08/04/22 16:59 08/04/22 16:59 Temperature 98.0 F 97.8 F Temperature Source Temporal Temporal Pulse Rate 87 87 87 Respiratory Rate 18 18 18 Blood Pressure 157/63 H 170/53 H 170/53 H Blood Pressure Mean 94 92 92 Pulse Ox 98 100 100 Oxygen Delivery Method Room Air Room Air Room Air MDM MDM MDM Narrative Medical decision making narrative: CT of the head and the neck are showing no acute process. My independent interpretation of the patient's chest x-ray shows no acute process final reading is similar. My independent interpretation the patient's left hip film 3 views do show a femoral neck fracture. Final reading is similar Blood work shows mild elevation white count which is nonspecific. Hemoglobin is 12 3 which is minimally low. Platelets are normal. Electrolytes are overall unremarkable. Glucose is normal Urinalysis is not yet back. I went in to talk with the family. They are not currently present. I did discuss case with orthopedics, Dr. Jaime. I discussed case with hospitalist. Patient will be admitted. Lab Data Attestation: I reviewed the patient's lab results. Labs: Laboratory Results - last 24 hr 08/04/22 08/04/22 15:40 15:40 WBC 12.6 H RBC 4.68 Hgb 12.3 L Hct 39.3 L MCV 84.0 MCH 26.3 L MCHC 31.3 L RDW Std Deviation 42.9 RDW Coeff of Skylar 14.1 Plt Count 282 MPV 11.1 Immature Gran % (Auto) 0.700 Neut % (Auto) 82.4 H Lymph % (Auto) 6.7 L [place] % (Auto) 9.6 Eos % (Auto) 0.4 Baso % (Auto) 0.2 Absolute Neuts (auto) 10.4 H Absolute Lymphs (auto) 0.84 Nucleated RBC % 0 Sodium 141 Potassium 3.8 Chloride 107 Carbon Dioxide 29.0 Anion Gap 5 BUN 27 H Creatinine 0.96 Estim Creat Clear Calc 60.25 Est GFR (MDRD) Af Amer 98 Est GFR (MDRD) Non-Af 81 BUN/Creatinine Ratio 28.2 H Glucose 100 Calcium 9.1 Radiography Diagnostic Testing: Clinical Impression(s) from Imaging Studies Brain CT 08/04/22 15:08 IMPRESSION: Chronic involutional changes of the brain. Electronically Signed: Leroy Hernandez MD at 16:36 EDT Reading Location ID and State: [facility] / [place] , Service support , Cervical Spine CT 08/04/22 15:08 IMPRESSION: No fracture Electronically Signed: Leroy Hernandez MD at 16:42 EDT Reading Location ID and State: [facility] / [place] , Service support , Chest X-Ray 08/04/22 16:20 IMPRESSION: New pacer on the left. No pneumothorax. No acute disease. Electronically Signed: Leroy Hernandez MD at 16:51 EDT Reading Location ID and State: [facility] / [place] , Service support , Hip/Pelvis X-Ray 08/04/22 16:20 IMPRESSION: Left hip fracture Electronically Signed: Leroy Hernandez MD at 16:54 EDT Reading Location ID and State: [facility] / [place] , Service support , Discharge Plan Triage Chief Complaint: Fall ED Provider: Jung Griffin Dx/Rx/DC Orders Prescriptions: No Action aspirin [Adult Low Dose Aspirin] 81 mg tablet,delayed release (DR/EC) 81 mg PO DAILY oxybutynin chloride 15 MG tablet extended release 24hr 15 mg PO DAILY trazodone 50 MG tablet 100 mg PO QHS amlodipine 2.5 MG tablet 2.5 mg PO DAILY famotidine 20 MG tablet 20 mg PO DAILY multivitamin with folic acid 1 TABLET tablet 1 tab PO QHS calcium carbonate-vitamin D3 1 EACH tablet 1 ea PO BID lamotrigine 100 mg tablet 100 mg PO DAILY olanzapine 7.5 MG tablet 7.5 mg PO QHS diphenhydramine HCl [Benadryl] 25 mg Capsule 25 mg PO Q6H PRN (Reason: ALLERGIES) pravastatin 80 mg tablet 80 mg PO QHS Qty: 90 3RF Primary Care Provider: Juwan Ac Referrals: Juwan Ac MD [Primary Care Provider] -
[2022-08-04 15:54] LABS: Absolute Lymphocyte Count 0.84 X10^3/uL (0.83-4.51); Absolute Neutrophil Count 10.4 X10^3/uL (2.0-7.7); Basophil# 0.03 X10^3/uL; Basophil% 0.2 % (0-1); Eosinophil# 0.05 X10^3/uL; Eosinophils% 0.4 % (0-5); Hematocrit 39.3 % (40-54); Hemoglobin 12.3 g/dL (13.0-16.5); Lymphocyte # 0.84 X10^3/ul (0.83-4.51); Lymphocyte % 6.7 % (19-41); Mean Corp Hgb Conc 31.3 g/dL (32-36); Mean Corpuscular Hgb 26.3 pg (27.0-32.0); Mean Platelet Vol. 11.1 fl (6.2-12.0); Monocyte# 1.21 X10^3/uL; Monocyte% 9.6 % (0-10); NRBC Flagged by Analyzer 0 % (0-5); Neutrophil # 10.37 X10^3/uL (2.7-7.7); Neutrophil % 82.4 % (47-70); Platelet Count 282 K/mm3 (150-450); RBC Distribution Width CV 14.1 % (11.6-14.6); RBC Distribution Width SD 42.9 fl (35.1-43.9); Red Blood Count 4.68 M/mm3 (4.6-6.2); White Blood Count 12.6 K/mm3 (4.4-11.0)
[2022-08-04 16:01] LABS: Anion Gap 5 (5-15); BUN 27 mg/dL (7-18); BUN/Creat Ratio 28.2 RATIO (10-20); Calcium,Total 9.1 mg/dL (8.5-10.1); Chloride 107 mmol/L (98-107); Creatinine, Serum 0.96 mg/dL (0.70-1.30); EST Glomerular Filtration Rate 81 mL/min (>60); Est Glom Filt Rate - Afr Amer 98 mL/min (>60); Estimated Creatinine Clearance 60.25 ml/min; Glucose 100 mg/dL (74-106); Potassium 3.8 mmol/L (3.5-5.1); Sodium Level 141 mmol/L (136-145)
--- NOTE | 2022-08-04 16:20 | RAD_ITS ---
STUDY: X-RAY CHEST REASON FOR EXAM: Male, 77 years old. Trauma TECHNIQUE: Single frontal view of the chest. COMPARISON: June 20, 2015 FINDINGS: AICD on the left appears to be new. Subsegmental atelectasis right lung base otherwise The lungs are clear and expanded. There is no demonstrated pleural abnormality. Normal size heart. Normal mediastinum and lennox. Normal visualized pulmonary arteries. Normal visualized aortic arch and descending thoracic aorta. Normal visualized thoracic spine. Normal visualized ribs, clavicles, and shoulders. There is no demonstrated abnormality of the visualized soft tissue structures of the upper abdomen. RAD/Chest 1 View (Portable) IMPRESSION: New pacer on the left. No pneumothorax. No acute disease. Electronically Signed: Leroy Hernandez MD at 16:51 EDT ,
--- NOTE | 2022-08-04 16:20 | RAD_ITS ---
STUDY: X-RAY - PELVIS AND LEFT HIP REASON FOR EXAM: Male, 77 years old. Trauma TECHNIQUE: 3 views of the pelvis and hip. COMPARISON: None. FINDINGS: There is a non-specific bowel gas pattern. Normal visualized soft tissue structures. Normal bilateral iliac wings, sacroiliac joints and visualized sacrum. Normal bilateral superior and inferior pubic rami. Normal pubic symphysis. Normal bilateral ischial tuberosities. Left impacted subcapital fracture with moderate varus deformity. On the right colon. Dextroconvex scoliosis. Normal visualized femoral head. Normal acetabulum. Normal hip joint. RAD/HIP, UNI W/ Pelvis 2-3 Views IMPRESSION: Left hip fracture Electronically Signed: Leroy Hernandez MD at 16:54 EDT ,
[2022-08-04 16:59] VITALS: BP 170/53; PULSE 87; RESP 18; TEMP 36.6; O2SAT 100
--- NOTE | 2022-08-04 17:19 | HP.PCM.HOS_ITS ---
HPI - General General Date of Admission: 08/04/22 HPI Narrative ELBERT FRIEDMAN, is a 77 M who presents to the hospital after a fall yesterday. He lives at home and fell out of his chair twice. 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 According to his family he was sitting in the chair and fell twice yesterday, he was able to walk to bed last night but then this morning he could not get out of bed and had pain in his left leg so they brought him to the ER. X-ray demonstrated a left femur fracture of the femoral neck. With each fall he hit his neck and he does have ecchymosis over his left eye without any orbital pain and CT of his brain in the ER was negative for head bleed. [facility] Medical History (Updated 08/04/22 @ 17:[address] Stan Campa MD) Atherosclerotic heart disease of [place] coronary artery without angina pectoris Cardiac arrest Cardiology follow-up encounter Closed left forearm fracture Encounter for long-term current use of high risk medication Former smoker Gastric reflux High cholesterol History of echocardiogram History of renal disease History of stress test Hyperlipidemia Hypertension Ischemic cardiomyopathy Memory deficit Nonspecific abnormal unspecified cardiovascular function study Presence of automatic implantable cardioverter-defibrillator Prinzmetal angina Prinzmetal angina Prostate disease Pure hypercholesterolemia Seizures Undiagnosed cardiac murmurs Ventricular fibrillation Wears dentures Home Medications amlodipine 2.5 mg tablet 2.5 mg PO DAILY HIGH BLOOD PRESSURE 07/04/15 [History Last Taken 07/05/15] calcium carbonate 600 mg-vitamin D3 20 mcg (800 unit) tablet 1 ea PO BID SUPPLEMENT 07/04/15 [History Last Taken Unknown] famotidine 20 mg tablet 20 mg PO DAILY ACID REFLUX 07/04/15 [History Last Taken Unknown] multivitamin with folic acid 400 mcg tablet 1 tab PO QHS SUPPLEMENT 07/04/15 [History Last Taken Unknown] oxybutynin chloride 15 mg tablet,extended release 24 hr 15 mg PO DAILY OVERACTIVE BLADDER 07/04/15 [History Last Taken 07/05/15] trazodone 50 mg tablet 100 mg PO QHS INSOMNIA/DEPRESSION 07/04/15 [History Last Taken Unknown] olanzapine 7.5 mg tablet 7.5 mg PO QHS MENTAL HEALTH 12/03/15 [History Last Taken Unknown] lamotrigine 100 mg tablet 100 mg PO DAILY MENTAL HEALTH 09/15/18 [History Last Taken Unknown] diphenhydramine HCl 25 mg capsule (Benadryl) 25 mg PO Q6H PRN ASSERTIVE BEHAVIOR 02/07/21 [History Last Taken Unknown] aspirin 81 mg tablet,delayed release (Adult Low Dose Aspirin) 81 mg PO DAILY HEART HEALTH 05/01/22 [History Last Taken Unknown] pravastatin 80 mg tablet 80 mg PO QHS HIGH CHOLESTEROL 08/04/22 [History Last Taken Unknown] Allergy/AdvReac Type Severity Reaction Status Date / Time pseudoephedrine Allergy SEVERE Verified 08/04/22 14:38 HEADACHE triprolidine Allergy SEVERE Verified 08/04/22 14:38 HEADACHE Family History Mother CAD (coronary artery disease) Surgical History History of cardiac catheterization History of esophagogastroduodenoscopy (EGD) History of hemorrhoidectomy History of shoulder surgery History of tonsillectomy Hx of colonoscopy Social History Smoking Status: Former smoker alcohol intake: never substance use type: does not use caffeine: Yes Type: coffee Number of servings: 10 what type of physical activity do you participate in: none seatbelt use: always do you feel safe at home: Yes ROS Review of Systems ROS Unobtainable: due to mental condition Vital Signs Vital Signs Vital Signs: 08/04/22 14:34 08/04/22 16:59 08/04/22 16:59 Temperature 98.0 F 97.8 F Temperature Source Temporal Temporal Pulse Rate 87 87 87 Respiratory Rate 18 18 18 Blood Pressure 157/63 H 170/53 H 170/53 H Blood Pressure Mean 94 92 92 Pulse Ox 98 100 100 Oxygen Delivery Method Room Air Room Air Room Air Weight Weight: 164 lb 10.965 oz Body Mass Index (BMI) 25.7 Physical Exam Narrative General: Alert, Oriented x1, Cooperative, No apparent distress HEENT: Periorbital ecchymosis on the left, PERRLA, EOMI, Normocephalic, no pain with ocular movement Oral: Moist Mucosa Neck: Supple, No JVD Lungs: Clear to auscultation, Normal air movement, No rhonchi, No wheeze, No rales Cardiovascular: Regular rate, Regular Rhythm, Normal S1, Normal S2, No murmurs Abdomen: Soft, Non Tender, Non-Distended, No Hepato-splenomegaly Extremities: No edema, Capillary Refill Less than 3 Seconds Skin: No rashes, No breakdown Musculoskeletal: No Tenderness to Palpation of Joints or Extremities, no bruising around his left hip either Neurological: Moves all of his extremities, left lower extremity was not tested, sensory exam intact Psych/Mental Status: Flat affect, Appropriate Results Lab / Micro Data Result Diagrams: 08/04/22 15:40 08/04/22 15:40 Labs: Laboratory Results - last 24 hr 08/04/22 15:40: WBC 12.6 H, RBC 4.68, Hgb 12.3 L, Hct 39.3 L, MCV 84.0, MCH 26.3 L, MCHC 31.3 L, RDW Std Deviation 42.9, RDW Coeff of Skylar 14.1, Plt Count 282, MPV 11.1, Immature Gran % (Auto) 0.700, Neut % (Auto) 82.4 H, Lymph % (Auto) 6.7 L, [place] % (Auto) 9.6, Eos % (Auto) 0.4, Baso % (Auto) 0.2, Absolute Neuts (auto) 10.4 H, Absolute Lymphs (auto) 0.84, Nucleated RBC % 0 08/04/22 15:40: Sodium 141, Potassium 3.8, Chloride 107, Carbon Dioxide 29.0, Anion Gap 5, BUN 27 H, Creatinine 0.96, Estim Creat Clear Calc 60.25, Est GFR (MDRD) Af Amer 98, Est GFR (MDRD) Non-Af 81, BUN/Creatinine Ratio 28.2 H, Glucose 100, Calcium 9.[address] 08/04/22 15:08 IMPRESSION: Chronic involutional changes of the brain. Electronically Signed: Leroy Hernandez MD at 16:36 EDT Reading Location ID and State: [address] [place] [address] , Service support , Cervical Spine CT 08/04/22 15:08 IMPRESSION: No fracture Electronically Signed: Leroy Hernanedz MD at 16:42 EDT , Chest X-Ray 08/04/22 16:20 IMPRESSION: New pacer on the left. No pneumothorax. No acute disease. Electronically Signed: Leroy Hernandez MD at 16:51 EDT , Hip/Pelvis X-Ray 08/04/22 16:20 IMPRESSION: Left hip fracture Electronically Signed: Leroy Hernandez MD at 16:54 EDT , Assessment & Plan Assessment/Plan (1) Fracture of femoral neck, left: PLAN: Plan 1. Left impacted subcapital fracture with moderate varus deformity status post fall from chair ? We will provide pain medication ? PT/OT he after repair ? We will consult orthopedic surgery ? N.p.o. after midnight 2. HTN/history of V-fib arrest with ischemic cardiomyopathy/ICD placement/HLD ? His cardiac arrest event is what led to his hypoxic brain injury about 20 years ago when he had his pacemaker placed in 2000 ? Continue with his Norvasc will hold his aspirin secondary to planned surgery ? Continue with pravastatin 3. Hypoxic brain injury ? Continue with his Lamictal and olanzapine ? He is generally alert and oriented x1 though family states that on occasion he is not oriented at all, and orientation is usually to self I had a 20-minute advance care planning discussion in terms of a code discussion as well as power of senior attorney and complications with discharge planning and given his hypoxic brain injury the need for potentially being transitioned to an assisted living in the near future. DVT: SCDs Charges/Coding Visit Charges Inpatient E&M: 10232 Init Hosp L2 Procedures Hospitalists Procedures: 80586 Advncd Care Plan 30 Min
--- NOTE | 2022-08-04 17:30 | ED.RN ---
PER FAMILY PT CONFUSED AT ALL TIMES. CAN BE ASSERTIVE IN HIS BEHAVIOR; BENADRYL IS EFFECTIVE FOR MANAGING THIS. TAKES PILLS CRUSHED W/APPLESAUCE/PUDDING/YOGURT/ICE CREAM.
[2022-08-04] MEDS: Morphine 4 MG/ML Syringe IV (17:37)
--- NOTE | 2022-08-04 17:40 | ED.RN ---
PER FAMILY. PT HAS HAD DIFFICULTY W/CATHETERS IN THE PAST AND HAS ATTEMPTED TO REMOVE THEM. THEY SUGGEST NOT PLACING ONE IF POSSIBLE.
--- NOTE | 2022-08-04 17:41 | EKG12_ITS ---
Test Reason : PRE OP Blood Pressure : / mmHG Vent. Rate : 087 BPM Atrial Rate : 087 BPM P-R Int : 126 ms QRS Dur : 066 ms QT Int : 378 ms P-R-T Axes : 056 021 063 degrees QTc Int : 454 ms Normal sinus rhythm Nonspecific T wave abnormality Abnormal ECG Confirmed by AYLEEN SPENCE, SARAN ([id number]), electronic news gathering editor ANGIE GARCIA ([id number]) on 08/05/2022 8:46:05 AM Referred By: LEO Confirmed By:SARAN ABBASI MD
--- NOTE | 2022-08-04 18:15 | NURSING ---
has a PACER - medtronic . did auto check Jun 01.
[2022-08-04 18:17] VITALS: BMI 22.1
--- NOTE | 2022-08-04 20:30 | NURSING ---
talk to miehsa in pharmacy about joint cocktail for surgery. she will take care of it
[2022-08-04 20:33] VITALS: BP 132/67; PULSE 104; RESP 17; TEMP 36.9; O2SAT 96
[2022-08-04] MEDS: Pravastatin 80 MG Tablet PO (20:50)
[2022-08-04] MEDS: OLANZapine 2.5 MG Tablet 7.5 MG PO (20:51)
[2022-08-04] MEDS: traZODone 100 MG Tablet PO (20:51)
[2022-08-04] MEDS: 0.9% Normal Saline 1,000 ML 75 ML IV (23:34)
[2022-08-05] VITALS (12 sets, daily range): BP systolic 81–157; BP diastolic 56–77; PULSE 83–107; RESP 16–18; TEMP 36.1–37.7; O2SAT 92–100; BMI 22.1
[2022-08-05 06:43] LABS: Absolute Lymphocyte Count 1.51 X10^3/uL (0.83-4.51); Absolute Neutrophil Count 6.9 X10^3/uL (2.0-7.7); Basophil# 0.03 X10^3/uL; Basophil% 0.3 % (0-1); Eosinophil# 0.14 X10^3/uL; Eosinophils% 1.5 % (0-5); Hematocrit 34.8 % (40-54); Hemoglobin 11.3 g/dL (13.0-16.5); Lymphocyte # 1.51 X10^3/ul (0.83-4.51); Lymphocyte % 15.7 % (19-41); Mean Corp Hgb Conc 32.5 g/dL (32-36); Mean Corpuscular Hgb 26.9 pg (27.0-32.0); Mean Corpuscular Volume 82.9 fL (80-94); Mean Platelet Vol. 10.8 fl (6.2-12.0); Monocyte% 10.4 % (0-10); NRBC Flagged by Analyzer 0 % (0-5); Neutrophil # 6.88 X10^3/uL (2.7-7.7); Neutrophil % 71.6 % (47-70); Platelet Count 264 K/mm3 (150-450); RBC Distribution Width SD 42.6 fl (35.1-43.9); White Blood Count 9.6 K/mm3 (4.4-11.0)
[2022-08-05 06:57] LABS: Anion Gap 6 (5-15); BUN 27 mg/dL (7-18); BUN/Creat Ratio 33.4 RATIO (10-20); Calcium,Total 8.3 mg/dL (8.5-10.1); Chloride 109 mmol/L (98-107); Creatinine, Serum 0.81 mg/dL (0.70-1.30); EST Glomerular Filtration Rate 98 mL/min (>60); Est Glom Filt Rate - Afr Amer 119 mL/min (>60); Estimated Creatinine Clearance 69.46 ml/min; Glucose 105 mg/dL (74-106); Potassium 3.7 mmol/L (3.5-5.1); Sodium Level 141 mmol/L (136-145)
--- NOTE | 2022-08-05 07:12 | PCM.PN.HOSP ---
Reason for Visit Reason for Visit: Fall Left leg pain Subjective Subjective Mr. Cox is a 77-year-old white male who presented to the emergency department at [facility] on 08/05/2022 with his family. He had suffered a fall out of his chair on Thursday of last week of last week and they helped him get back into his chair and he fell again. He reportedly hit his head both times with there was no loss of consciousness and no post fall nausea and vomiting. Since that point time he had difficulty bearing weight on his left lower extremity and had intermittently complained of left hip pain. They reported other than those issues he had seem to be acting normally. He is at baseline incontinent of urine and that his oral intake at [facility] adequate. 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 Vital signs at presentation showed a temperature of 98.0, heart rate 87, blood pressure 157/63, respiratory rate 18 and oxygen saturation was 98% on room air. CBC showed a mild leukocytosis at 12.6 and his chemistry panel was overtly unremarkable. Chest x-ray showed no acute processes. Hip and pelvic imaging showed a left impacted subcapital fracture with moderate varus deformity. The case was discussed with Dr. Alvarez Jaime from orthopedics and they will follow in consult. Patient is lying in bed at the time my exam. Was not interactive at all but was awake. Seems comfortable, nontoxic appearing. Objective Data Objective Data Vital Signs: Vital Signs Temp Pulse Resp BP Pulse Ox O2 Del Method 98.5 F 107 H 16 136/69 H 96 Room Air 08/05/22 02:48 08/05/22 02:48 08/05/22 02:48 08/05/22 02:48 08/05/22 02:48 08/05/22 02:51 Oxygen Delivery Method Room Air Weight: 64.3 kg Body Mass Index (BMI) 22.1 Intake & Output: Intake and Output for Last 24 Hours 08/03/22 08/04/22 08/05/22 23:59 23:59 23:59 Intake Total 100 / 100 Balance 100 / 100 Lab / Micro Data Result Diagrams: 08/05/22 06:20 08/05/22 06:20 Labs: Laboratory Results - last 24 hr 08/04/22 15:40: WBC 12.6 H, RBC 4.68, Hgb 12.3 L, Hct 39.3 L, MCV 84.0, MCH 26.3 L, MCHC 31.3 L, RDW Std Deviation 42.9, RDW Coeff of Skylar 14.1, Plt Count 282, MPV 11.1, Immature Gran % (Auto) 0.700, Neut % (Auto) 82.4 H, Lymph % (Auto) 6.7 L, [place] % (Auto) 9.6, Eos % (Auto) 0.4, Baso % (Auto) 0.2, Absolute Neuts (auto) 10.4 H, Absolute Lymphs (auto) 0.84, Nucleated RBC % 0 08/04/22 15:40: Sodium 141, Potassium 3.8, Chloride 107, Carbon Dioxide 29.0, Anion Gap 5, BUN 27 H, Creatinine 0.96, Estim Creat Clear Calc 60.25, Est GFR (MDRD) Af Amer 98, Est GFR (MDRD) Non-Af 81, BUN/Creatinine Ratio 28.2 H, Glucose 100, Calcium 9.1 08/05/22 06:20: Sodium 141, Potassium 3.7, Chloride 109 H, Carbon Dioxide 26.0, Anion Gap 6, BUN 27 H, Creatinine 0.81, Estim Creat Clear Calc 69.46, Est GFR (MDRD) Af Amer 119, Est GFR (MDRD) Non-Af 98, BUN/Creatinine Ratio 33.4 H, Glucose 105, Calcium 8.3 L 08/05/22 06:20: WBC 9.6, RBC 4.20 L, Hgb 11.3 L, Hct 34.8 L, MCV 82.9, MCH 26.9 L, MCHC 32.5, RDW Std Deviation 42.6, RDW Coeff of Skylar 14.0, Plt Count 264, MPV 10.8, Immature Gran % (Auto) 0.500, Neut % (Auto) 71.6 H, Lymph % (Auto) 15.7 L, [place] % (Auto) 10.4 H, Eos % (Auto) 1.5, Baso % (Auto) 0.3, Absolute Neuts (auto) 6.9, Absolute Lymphs (auto) 1.51, Nucleated RBC % 0 Micro: Microbiology 08/05/22 01:10 Nasal Secretion SARS-CoV-2 Antigen (Rapid) - Final Radiography Diagnostic Testing: Radiology Impression Brain CT 08/04/22 15:08 IMPRESSION: Chronic involutional changes of the brain. Electronically Signed: Leory Hernandez MD at 16:36 EDT Reading Location ID and State: [address] [place] [address] , Service support , Cervical Spine CT 08/04/22 15:08 IMPRESSION: No fracture Electronically Signed: Leroy Hernandez MD at 16:42 EDT , Chest X-Ray 08/04/22 16:20 IMPRESSION: New pacer on the left. No pneumothorax. No acute disease. Electronically Signed: Leroy Hernandez MD at 16:51 EDT Reading Location ID and State: [facility] / [place] , Service support , Hip/Pelvis X-Ray 08/04/22 16:20 IMPRESSION: Left hip fracture Electronically Signed: Leroy Hernandez MD at 16:54 EDT Reading Location ID and State: [facility] / [place] , Service support , Physical Exam Const alert, no apparent distress and well nourished Constitutional Narrative: Thin, older, white male, lying in bed, currently appears comfortable, nontoxic, was not verbal with me at all today HEENT HEENT Narrative: Significant ecchymosis surrounding left eye Head and Scalp: normocephalic Eyes PERRL, EOMs intact bilaterally and conjunctivae normal Eyes Narrative: Left thigh with significant surrounding ecchymosis however the eye itself appears benign Resp normal respiratory effort, no retractions, no use of accessory muscles and clear to auscultation bilaterally Auscultation: Negative for rales, rhonchi or wheezes Cardio regular rate, regular rhythm, S1 normal heart sound, S2 normal heart sound, no murmurs, no rub, no gallops and no clicks GI normal to inspection, nondistended, normoactive bowel sounds, soft to palpation and non-tender Extremity no clubbing, cyanosis or edema Extremity Narrative: 2+ pedal pulses Neuro Neuro Narrative: Difficult exam as patient was nonverbal with me, moves both arms spontaneously, no significant leg movement but is wiggling toes I would not anticipate him wanting to move his left hip much at this point given the fracture Psych Psych Narrative: Affect is very flat Assessment & Plan Assessment/Plan (1) Fracture of femoral neck, left: (2) Leukocytosis: PLAN: Plan Left femoral neck fracture -Imaging on presentation demonstrates left impacted subcapital fracture with moderate varus deformity -As needed pain medication -N.p.o. -OR to day at 1030--> plan is for left hip hemiarthroplasty -PT/OT consultation after repair -Check vitamin D level -Orthopedic surgery following-appreciate input Mild anemia -Appears to be chronic -Currently stable -Would anticipate some loss postoperatively with blood loss and fluid resuscitation during surgery -Repeat CBC in a.m. History of ventricular fibrillation -Has ICD -Saw Dr. Sanchez in 05/01/2022 and has had no ICD discharges and no recurrent ventricular dysrhythmias CAD/ischemic cardiomyopathy/HPL/Prinzmetal angina -Aspirin on hold preoperatively--> restart tomorrow -Continue home pravastatin -Continue home amlodipine History of cardiac arrest with resultant anoxic brain injury -At baseline is oriented x1 Memory deficit secondary to anoxic brain injury -Continue as needed diphenhydramine for aggressive behavior -Continue Lamictal -Continue olanzapine Overactive bladder -Continue oxybutynin Depression/insomnia -Continue home trazodone History of tobacco abuse -Remote DVT prophylaxis -SCDs for now -Postoperative DVT prophylaxis per orthopedic surgery at discharge Charges/Coding Visit Charges Inpatient E&M: 17234 Subs Hosp L2
--- NOTE | 2022-08-05 07:24 | CON.PCM.OR_ITS ---
HPI Consult Data Date of Consult: 08/05/22 HPI Narrative Reason for Consultation: Left femoral neck fracture HPI Narrative: ELBERT FRIEDMAN, is a 77 M who presented to [facility] emergency department after 2 separate falls 08/03/2022 from his chair. Patient is a poor historian secondary to anoxic brain injury approximately 20 years ago from a cardiac event. I was unable to reach family by phone this morning. History obtained from medical record. Apparently, patient had 2 separate falls from his chair. He was able to walk to bed last night but could not get out of bed the morning of 08/04/2022. He was subsequently brought to emergency department. X- rays revealed a displaced left femoral neck fracture. Patient did have head trauma. CT scan of the head was negative for acute process. Patient was subsequently admitted under the service of the hospitalist. My partner Dr. Alvarez Jaime was consulted. He asked if I would see the patient to expedite his surgical intervention. At time of my examination, patient denies any other complaints other than his left hip pain. Review of systems unable to be obtained secondary to mental status. [facility] Medical History (Updated 08/05/22 @ 07:[address] Stan Bernal, DO) Anoxic brain damage Anoxic brain damage Atherosclerotic heart disease of [place] coronary artery without angina pectoris Cardiac arrest Cardiology follow-up encounter Closed left forearm fracture Encounter for long-term current use of high risk medication Former smoker Gastric reflux High cholesterol History of echocardiogram History of renal disease History of stress test Hyperlipidemia Hypertension Ischemic cardiomyopathy Memory deficit Nonspecific abnormal unspecified cardiovascular function study Presence of automatic implantable cardioverter-defibrillator Prinzmetal angina Prinzmetal angina Prostate disease Pure hypercholesterolemia Seizures Undiagnosed cardiac murmurs Ventricular fibrillation Wears dentures Home Medications amlodipine 2.5 mg tablet 2.5 mg PO DAILY HIGH BLOOD PRESSURE 07/04/15 [History Last Taken 08/03/22] calcium carbonate 600 mg-vitamin D3 20 mcg (800 unit) tablet 1 ea PO BID SUPPLEMENT 07/04/15 [History Last Taken 08/03/22] famotidine 20 mg tablet 20 mg PO DAILY ACID REFLUX 07/04/15 [History Last Taken 08/03/22] multivitamin with folic acid 400 mcg tablet 1 tab PO QHS SUPPLEMENT 07/04/15 [History Last Taken 08/03/22] oxybutynin chloride 15 mg tablet,extended release 24 hr 15 mg PO DAILY OVERACTIVE BLADDER 07/04/15 [History Last Taken 08/03/22] trazodone 50 mg tablet 100 mg PO QHS INSOMNIA/DEPRESSION 07/04/15 [History Last Taken 08/03/22] olanzapine 7.5 mg tablet 7.5 mg PO QHS MENTAL HEALTH 12/03/15 [History Last Taken 08/03/22] lamotrigine 100 mg tablet 100 mg PO DAILY MENTAL HEALTH 09/15/18 [History Last Taken 08/03/22] diphenhydramine HCl 25 mg capsule (Benadryl) 25 mg PO Q6H PRN ASSERTIVE BEHAVIOR 02/07/21 [History Last Taken Unknown] aspirin 81 mg tablet,delayed release (Adult Low Dose Aspirin) 81 mg PO DAILY HEART HEALTH 05/01/22 [History Last Taken 08/03/22] pravastatin 80 mg tablet 80 mg PO QHS HIGH CHOLESTEROL 08/04/22 [History Last Taken 08/03/22] Allergy/AdvReac Type Severity Reaction Status Date / Time pseudoephedrine Allergy SEVERE Verified 08/04/22 14:38 HEADACHE triprolidine Allergy SEVERE Verified 08/04/22 14:38 HEADACHE Family History Mother CAD (coronary artery disease) Surgical History History of cardiac catheterization History of esophagogastroduodenoscopy (EGD) History of hemorrhoidectomy History of shoulder surgery History of tonsillectomy Hx of colonoscopy Social History Smoking Status: Former smoker alcohol intake: never substance use type: does not use caffeine: Yes Type: coffee Number of servings: 10 what type of physical activity do you participate in: none seatbelt use: always do you feel safe at home: Yes ROS Review of Systems ROS Unobtainable: due to mental status Vital Signs Vital Signs Vital Signs: 08/04/22 14:34 08/04/22 16:59 08/04/22 16:59 Temperature 98.0 F 97.8 F Temperature Source Temporal Temporal Pulse Rate 87 87 87 Respiratory Rate 18 18 18 Respiratory Effort Respiratory Depth Respiratory Pattern Blood Pressure 157/63 H 170/53 H 170/53 H Blood Pressure Mean 94 92 92 Blood Pressure Source Blood Pressure Position Blood Pressure Location Pulse Ox 98 100 100 Oxygen Delivery Method Room Air Room Air Room Air 08/04/22 20:33 08/04/22 20:53 08/05/22 02:48 Temperature 98.4 F 98.5 F Temperature Source Oral Oral Pulse Rate 104 H 107 H Respiratory Rate 17 16 Respiratory Effort Normal Non-Labored Respiratory Depth Normal Respiratory Pattern Normal Blood Pressure 132/67 H 136/69 H Blood Pressure Mean 88 91 Blood Pressure Source Monitor Monitor Blood Pressure Position Supine Semi-Fowlers Blood Pressure Location Right Arm Right Arm Pulse Ox 96 96 Oxygen Delivery Method Room Air Room Air Room Air 08/05/22 02:51 Temperature Temperature Source Pulse Rate Respiratory Rate Respiratory Effort Normal Non-Labored Respiratory Depth Normal Respiratory Pattern Normal Blood Pressure Blood Pressure Mean Blood Pressure Source Blood Pressure Position Blood Pressure Location Pulse Ox Oxygen Delivery Method Room Air Weight Weight: 141 lb 12.116 oz Body Mass Index (BMI) 22.1 Physical Exam Narrative General -A&Ox1, NAD, appears stated age. Vital signs stable, afebrile. HEENT-left periorbital ecchymosis, EOMI, PERRLA, normocephalic Respiratory -normal work of breathing, no intercostal retractions. CV -pulses regular, brisk capillary refill ?4 limbs. Abdomen-soft, nontender, nondistended. No guarding, rigidity, rebound tenderness. Musculoskeletal/neurologic -full range of motion nontender throughout bilateral upper extremities, right lower extremity with full sensation and strength in all dermatomes and myotomes. No midline cervical tenderness. Left lower extremity-no obvious deformity. Pain with logroll of the left lower extremity. Nontender throughout the left knee femoral shaft, tibial shaft and left foot/ankle. Brisk capillary refill. Sensation intact light touch L3-S1 dermatomes. DF, PF, EHL intact. DP, PT 2+. Pelvis is stable, nontender. Skin is intact without lacerations, abrasions. No ecchymosis noted. Lab / Micro Data Result Diagrams: 08/05/22 06:20 08/05/22 06:20 Labs: Laboratory Results - last 24 hr 08/04/22 15:40: WBC 12.6 H, RBC 4.68, Hgb 12.3 L, Hct 39.3 L, MCV 84.0, MCH 26.3 L, MCHC 31.3 L, RDW Std Deviation 42.9, RDW Coeff of Skylar 14.1, Plt Count 282, MPV 11.1, Immature Gran % (Auto) 0.700, Neut % (Auto) 82.4 H, Lymph % (Auto) 6.7 L, Rosebud % (Auto) 9.6, Eos % (Auto) 0.4, Baso % (Auto) 0.2, Absolute Neuts (auto) 10.4 H, Absolute Lymphs (auto) 0.84, Nucleated RBC % 0 08/04/22 15:40: Sodium 141, Potassium 3.8, Chloride 107, Carbon Dioxide 29.0, Anion Gap 5, BUN 27 H, Creatinine 0.96, Estim Creat Clear Calc 60.25, Est GFR (MDRD) Af Amer 98, Est GFR (MDRD) Non-Af 81, BUN/Creatinine Ratio 28.2 H, Glucose 100, Calcium 9.1 08/05/22 06:20: Sodium 141, Potassium 3.7, Chloride 109 H, Carbon Dioxide 26.0, Anion Gap 6, BUN 27 H, Creatinine 0.81, Estim Creat Clear Calc 69.46, Est GFR (MDRD) Af Amer 119, Est GFR (MDRD) Non-Af 98, BUN/Creatinine Ratio 33.4 H, Glucose 105, Calcium 8.3 L 08/05/22 06:20: WBC 9.6, RBC 4.20 L, Hgb 11.3 L, Hct 34.8 L, MCV 82.9, MCH 26.9 L, MCHC 32.5, RDW Std Deviation 42.6, RDW Coeff of Skylar 14.0, Plt Count 264, MPV 10.8, Immature Gran % (Auto) 0.500, Neut % (Auto) 71.6 H, Lymph % (Auto) 15.7 L, Rosebud % (Auto) 10.4 H, Eos % (Auto) 1.5, Baso % (Auto) 0.3, Absolute Neuts (auto) 6.9, Absolute Lymphs (auto) 1.51, Nucleated RBC % 0 Micro: Microbiology 08/05/22 01:10 Nasal Secretion SARS-CoV-2 Antigen (Rapid) - Final Radiology Impression Brain CT 08/04/22 15:08 IMPRESSION: Chronic involutional changes of the brain. Electronically Signed: Leroy Hernandez MD at 16:36 EDT , Cervical Spine CT 08/04/22 15:08 IMPRESSION: No fracture Electronically Signed: Leroy Hernandez MD at 16:42 EDT , Chest X-Ray 08/04/22 16:20 IMPRESSION: New pacer on the left. No pneumothorax. No acute disease. Electronically Signed: Leroy Hernandez MD at 16:51 EDT , Hip/Pelvis X-Ray 08/04/22 16:20 IMPRESSION: Left hip fracture Electronically Signed: Leroy Hernandez MD at 16:54 EDT , Assessment & Plan Assessment/Plan (1) Fracture of femoral neck, left: QUALIFIERS: Encounter type: initial encounter Fracture type: closed Qualified Code(s): S72.002A - Fracture of unspecified part of neck of left femur, initial encounter for closed fracture PLAN: Patient sustained a left displaced femoral neck fracture -Closed, neurovascularly intact -Isolated injury -Recommending surgical intervention in the form of left hip hemiarthroplasty -I discussed the procedure with the patient. Given his mental status, I attempted to reach his to obtain informed consent. I was unable to reach her this morning. We will try back prior to surgery later this morning. -Maintenance IV fluids, clear liquid diet after midnight n.p.o. at 2 hours prior to surgery -Type and screen -2 g Ancef on-call to the OR -Bedrest, heel protectors -Plan to proceed with surgery later today when OR becomes available Thank you for this consultation.
[2022-08-05] MEDS: Tolterodine Tartrate 4 MG CAP.SA PO (08:43)
[2022-08-05] MEDS: Famotidine 20 MG Tablet PO (08:44)
[2022-08-05] MEDS: amLODIPine 2.5 MG Tablet PO (08:44)
[2022-08-05] MEDS: lamoTRIgine 100 MG Tablet PO (08:44)
--- NOTE | 2022-08-05 08:55 | NURSING ---
phoned pt spouse listed in demographics and updated on POC
[2022-08-05 09:57] LABS: Vitamin D,25 Hydroxy 44.5 ng/mL
[2022-08-05] MEDS: Morphine 2 MG/ML Syringe IV (10:27)
--- NOTE | 2022-08-05 10:38 | CASEMGMT ---
TC to pt to complete assessment, left message requesting returned call.
--- NOTE | 2022-08-05 10:45 | HIP_PTH ---
PATIENT: ELBERT FRIEDMAN LOC: MS3 U#:[id number] AGE/SX: 77/M ROOM: [facility] RE08/04/[address]: Dr. Jack Ogden MD : 1945 BED: 1 DIS: 08/07/2022 SPEC #: [id number] RECD: 08/05/22 16:57 STATUS: ZOE REQ #: [id number] LEONELA: 08/05/22 10:[address]: Stan Bernal DEPT: SURGICAL PATHOLOGY RECD BY: Erendira Paece ENTERED: 08/06/22 08:18 SP TYPE: TOTAL HIP OTHR DR: DO Dr. Stan Parham MD Dr. Prakash Chand, MD Dr. Rodney Miller, MD Dr. Victor Velasquez, MD Tissues: Hip, NOS Procedures: Decalcification bone/plaque Surgery Specimen Level IV HEADER OPERATION: Hemiarthroplasty hip, cemented PRE-OP DIAGNOSIS: Fracture of left femoral neck TISSUE SUBMITTED: Left hip bone MICROSCOPIC DIAGNOSIS Bone and tissue of left hip, total hip resection: Consistent with organizing fracture callous. SRAVAN:gaby 08/11/2022 MICROSCOPIC DESCRIPTION Slides are reviewed. GROSS DESCRIPTION Received is one container labeled with the patient's name and designated bone left hip. The specimen consists of a juarez femoral head measuring 4.5 x 5.0 x 4.0 cm. The articular surface is smooth. Resection margin is irregular and hemorrhagic. Also present in the specimen container are multiple detached pieces of bone including soft tissue measuring in aggregate 6.0 x 4.5 x 2.0 cm. [employer] sections are submitted in three cassettes as follows: 1 - soft tissue, 2 - detached pieces of bone, 3 - femoral head. Cassettes 2 & 3 are submitted after decalcification. / SJ:gaby 08/06/2022 TC:5 CPT: 23604, [id number]
[2022-08-05] MEDS: Lactated Ringers 1,000 ML 15 ML IV (11:08)
[2022-08-05] MEDS: Cefazolin 2 GM in 0.9% Normal Saline 100 ML IV (12:39)
--- NOTE | 2022-08-05 13:49 | RAD_ITS ---
STUDY: X-RAY - PELVIS AND LEFT HIP REASON FOR EXAM: Male, 77 years old. FOREIGN BODY TECHNIQUE: 2 views of the pelvis and hip. COMPARISON: Comparison is made with prior study dated August 04, 2022. FINDINGS: The patient is status post right total hip replacement. No radiopaque foreign body is seen. RAD/Hip Min 2 Views (Portable) IMPRESSION: No radiopaque foreign body is seen. Electronically Signed: Albino Barth MD at 14:23 EDT ,
[2022-08-05] MEDS: JPS (Morphine 10mg/ml) OPERA.SITE (14:20)
--- NOTE | 2022-08-05 14:48 | OP.PCM_ITS ---
Report of Operation Date of Procedure: 08/05/22 Description of Surgical Findings:: Preoperative diagnosis: Left displaced femoral neck fracture Postoperative diagnosis: Left displaced femoral neck fracture Procedure: Left hip hemiarthroplasty Surgeon: Stan Bernal DO Spinning Doffer: WILLIAM Boyer Anesthesia: General endotracheal Anesthesiologist: Dr. El Complications: None apparent Drains: None Estimated blood loss: 300 cc Urinary output: None recorded IV fluids: 1 L crystalloid Specimens: Left femoral head resection Surgical implants: [place] Accolade C 127 degree neck angle hip stem size #5, Unitrax neck adjustment sleeve +0 mm, Unitrax endoprosthesis head component outer diameter 50 mm, size 12 centralizer Indications: This is an 77-year-old male with history of anoxic brain injury secondary to remote cardiac arrest, who sustained 2 separate falls falling out of his chair at home onto a concrete floor. Patient is a household ambulator without assist device. Patient was seen in the emergency department [facility] on 08/04/22.x-rays revealed a displaced left femoral neck fracture. Patient was admitted under the service of the hospitalist. I saw the patient in consultation. I recommended a left hip hemiarthroplasty due to the pattern and displacement. I reviewed the procedure with the patient, its risk, benefits, alternatives. Risks included but were not limited to bleeding, infection, loss of life or limb, risk of anesthesia, neurovascular injury, persistent pain, instability, need for additional surgery, failure of orthopedic hardware, loosening, osteolysis, need for assistive devices long-term. Patient's , who is POA, expressed understanding wish to proceed with surgery. Description of procedure: Prior to the procedure, patient was brought to the preoperative holding area where patient was identified by name, medical record number and date of . I confirmed the side, site, operation to be performed with the patient's . Informed consent was confirmed, All questions were answered to patient satisfaction. The operative extremity was marked. She was also seen by anesthesia staff and anesthesia consent obtained.At time of the operative procedure, pt was brought to the operative suite. General anesthesia w as induced on the hospital bed and endotracheal tube placed. After adequate anesthesia, patient was transferred to a standard operating table. He was then positioned in the lateral decubitus position with the left side up and held in position by the [employer] hip positioner system. All bony prominences were well- padded. A axillary roll was placed under the patient's right axilla. Peroneal nerve was free with a blanket on the nonoperative extremity. Leg lengths were reproduced from patient's position when she was supine. The left lower extremity was then prepped and draped in normal, sterile orthopedic fashion. We performed a timeout with all parties in attendance in agreement with the side, site, and operation to be performed. No concerns were voiced and would like to proceed. I first marked an incision along the lateral aspect of the hip centered over the greater trochanteric tip. In standard posterior approach, a curvilinear incision was made above the trochanter. An approximately 12 cm incision was made. Skin was sharply incised with a 10 blade scalpel carried deep through subcutaneous layers to the level of the IT band. Gelpi retractors were then placed. A Delaney was used to expose the IT band. Bovie cautery was then used for hemostasis and then to open the IT band. This was opened in line with the incision. The trochanteric bursa was then debrided. This identified the short external rotators after internal rotation of the hip. The fracture site was easily identified at this point. Short external rotators were taken down and tagged for later repair. Hip capsule was also tagged for repair with a stay suture. We then freshened the neck cut with a sagittal saw. Anterior and posterior acetabular retractors were placed to gain access to the femoral head. A corkscrew was used to remove the head. Any remaining debris was debrided from the acetabulum. We then placed the femoral head on the back table for measurement. We did use trial heads and selected a final size 50 with good suction fit. Box chisel was then utilized to gain access to the femoral canal. Canal finder was placed. Sequential broaches were used in press-fit manner. A final size 5 achieved excellent vertical and rotational stability. We then trialed with a standard and subsequently high offset stem. High offset did achieve excellent stability and reproduction of abductor tension. I then prepared the femur for cementing. We trialed a centralizer to determine appropriate size. Simplex cement was then mixed on the back table. I placed a cement restrictor to an phoebe ropriate depth allowing for a 5 mm distal cement mantle. Wire brush was used to remove blood from the femoral canal. I then thoroughly irrigated the femoral canal. Canal was suctioned dry. I then placed dry vaginal packing to pack the femoral canal. After 3 minutes, the cement was pressurized in the femoral canal. Size #5 stem was then placed by hand to an appropriate depth recreating appropriate anteversion of the femoral neck. This was held in place while cement cured. Excess cement was removed. After the cemented hardened, we copiously irrigated the wound with normal saline solution and irrisept solution. I retrialed with a +0 mm head trial which appropriately reproduce her leg lengths and was stable through an arc of motion. Final dislocation was performed. The trunnion was irrigated and dried. Final head was then impacted over the Ballesteros taper neck. Final reduction was performed. A posterior capsular repair was performed with #2 Ethibond suture via bone tunnels. During drilling of our bone tunnels, the drill bit broke at the junction of the grooves and the remainder of the drill bit. We thoroughly searched the wound for the tip of the drill bit was unable to find it. I dislocated the hip. Drill bit was again not found. A portable x-ray was brought in and AP and lateral projections of the operative hip were negative for any metallic foreign body. I have we reduced the hip. Wound was copiously irrigated with normal saline solution. No foreign body was identified. Posterior capsular repair was performed with #5 Ethibond suture via bone tunnels. IT band was closed watertight with #1 strata fix suture. Deeper fascial layers were closed with 0 Vicryl suture in interrupted fashion. Subcutaneous layers were reapproximated with 2-0 Vicryl suture and skin reapproximated with skin katherine. A silver dressing was applied. Patient tolerated procedure well without complication. He was positioned back in the supine position on her hospital bed and subsequently extubated safely. He was transferred to PACU in stable condition. Blankets were placed between the patient's legs. Post Operative Plan: Weightbearing: Weightbearing as tolerated left lower extremity, posterior hip precautions. Blankets between the legs for the first 24 hours Antibiotics: Ancef 1 g every 8 hours x 3 doses DVT Prophylaxis: Lovenox 40 mg subcutaneous daily, SCDs, JACEY hose, early mobilization Dressing: Maintain silver dressing x7 days X-Rays: PACU x-rays were reviewed demonstrated well-positioned left hip hemiarthroplasty implant. No obvious foreign body identified. Follow-up 2-week x-rays in the office. Follow-up: 2 weeks in my office for staple removal
--- NOTE | 2022-08-05 15:00 | RAD_ITS ---
STUDY: X-RAY - PELVIS AND LEFT HIP REASON FOR EXAM: Male, 77 years old. Post Op -- AP both hips on single marianne/lateral of op hip PACU TECHNIQUE: 2 views of the pelvis and hip. COMPARISON: None. FINDINGS: The patient is status post left total hip replacement. There is good alignment. Postoperative soft tissue changes. RAD/Hip Min 2 Views (Portable) IMPRESSION: Status post left total hip replacement. There is good alignment. Postoperative soft tissue changes. Electronically Signed: Albino Barth MD at 15:48 EDT ,
[2022-08-05] MEDS: 0.9% Normal Saline 1,000 ML 75 ML IV (15:53)
[2022-08-05] MEDS: traZODone 100 MG Tablet PO (21:01)
[2022-08-05] MEDS: OLANZapine 2.5 MG Tablet 7.5 MG PO (21:01)
[2022-08-05] MEDS: Pravastatin 80 MG Tablet PO (21:01)
[2022-08-05] MEDS: Cefazolin 1 GM/50 ML BAG IV (21:01)
[2022-08-05] MEDS: oxyCODONE 5 MG Tablet PO (23:49)
[2022-08-05 23:59] LABS: Squamous Epithelial Cells - UA 0 SEEN /hpf (0-5); White Blood Cells 0 SEEN /hpf (0-5)
[2022-08-06] VITALS (8 sets, daily range): BP systolic 118–131; BP diastolic 65–83; PULSE 88–101; RESP 16–18; TEMP 36.5–37.6; O2SAT 93–97
[2022-08-06 00:01] LABS: Color, Urine Yellow (Yellow); Glucose, Dipstick Normal (Normal); Ketone-Dipstick 15 mg/dl (Negative); Leukocyte Esterase-Dipstick Negative /ul (Negative); Nitrite-Dipstick Negative (Negative); Occult Blood-Urine Negative /ul (Negative); Protein-Dipstick 15 mg/dl (Negative); Specific Gravity, Urine 1.015 (1.002-1.030); Urine Bilirubin Dipstick Negative (Negative); Urine Clarity Clear (Clear); Urine Urobilinogen Normal (Normal)
--- NOTE | 2022-08-06 00:01 | NURSING ---
Pt had not voided since coming back from surgery. Had no urge to urinate. This RN bladder scanned pt to find 860ml of urine. Proceeded to straight cath pt to get 850ml of urine. Urinalysis sample was collected from this straight cath. Will continue to monitor
[2022-08-06 00:07] LABS: Bacteria 1+ /hpf (None Seen); Mucous, Urine 2+ /hpf (<or=2+); Red Blood Cells-Urine 0-5 SEEN /hpf (0-5)
[2022-08-06 05:36] LABS: Absolute Lymphocyte Count 0.74 X10^3/uL (0.83-4.51); Absolute Neutrophil Count 12.8 X10^3/uL (2.0-7.7); Basophil# 0.02 X10^3/uL; Basophil% 0.1 % (0-1); Hematocrit 29.7 % (40-54); Hemoglobin 9.2 g/dL (13.0-16.5); Lymphocyte # 0.74 X10^3/ul (0.83-4.51); Mean Corpuscular Hgb 26.2 pg (27.0-32.0); Mean Corpuscular Volume 84.6 fL (80-94); Mean Platelet Vol. 10.6 fl (6.2-12.0); Monocyte# 1.23 X10^3/uL; Monocyte% 8.3 % (0-10); NRBC Flagged by Analyzer 0 % (0-5); Neutrophil # 12.76 X10^3/uL (2.7-7.7); Platelet Count 258 K/mm3 (150-450); RBC Distribution Width SD 43.3 fl (35.1-43.9); Red Blood Count 3.51 M/mm3 (4.6-6.2); White Blood Count 14.8 K/mm3 (4.4-11.0)
[2022-08-06] MEDS: Enoxaparin 40 MG/0.4 ML Syringe SC (05:49)
[2022-08-06] MEDS: Cefazolin 1 GM/50 ML BAG IV ×2 (05:49→12:14)
[2022-08-06 05:57] LABS: Anion Gap 6 (5-15); BUN 29 mg/dL (7-18); BUN/Creat Ratio 38.2 RATIO (10-20); Calcium,Total 7.5 mg/dL (8.5-10.1); Chloride 112 mmol/L (98-107); Creatinine, Serum 0.76 mg/dL (0.70-1.30); EST Glomerular Filtration Rate 106 mL/min (>60); Est Glom Filt Rate - Afr Amer 128 mL/min (>60); Estimated Creatinine Clearance 56.26 ml/min; Glucose 132 mg/dL (74-106); Magnesium 2.2 mg/dL (1.6-2.6); Phosphorus 2.7 mg/dL (2.5-4.9); Potassium 4.2 mmol/L (3.5-5.1); Sodium Level 143 mmol/L (136-145)
--- NOTE | 2022-08-06 06:39 | PN.ORTHO_ITS ---
Subjective Subjective Patient seen and examined. Denies any new complaints. States his left hip feels alright . Denies fevers, chills, nausea vomiting, chest pain or shortness of breath. Objective Data Objective Data Vital Signs: Vital Signs Temp Pulse Resp BP Pulse Ox O2 Del Method O2 Flow Rate 99.6 F H 100 18 118/66 95 Nasal Cannula 2 08/06/22 03:36 08/06/22 03:36 08/06/22 03:36 08/06/22 03:36 08/06/22 03:36 08/06/22 03:36 08/06/22 03:36 Oxygen Flow Rate (L/min) 2 Oxygen Delivery Method Nasal Cannula Weight: 141 lb 12.116 oz Body Mass Index (BMI) 22.1 Intake & Output: Intake and Output for Last 24 Hours 08/04/22 08/05/22 08/06/22 23:59 23:59 23:59 Intake Total 1180.25 / 1180.25 50 / 50 Output Total 850 / 850 Balance 1180.25 / 330.25 -800 / -800 Lab / Micro Data Attestation: I reviewed the patient's lab results. Result Diagrams: 08/06/22 05:22 08/06/22 05:22 Labs: Laboratory Results - last 24 hr 08/05/22 06:20: Sodium 141, Potassium 3.7, Chloride 109 H, Carbon Dioxide 26.0, Anion Gap 6, BUN 27 H, Creatinine 0.81, Estim Creat Clear Calc 69.46, Est GFR (MDRD) Af Amer 119, Est GFR (MDRD) Non-Af 98, BUN/Creatinine Ratio 33.4 H, Glucose 105, Calcium 8.3 L 08/05/22 06:20: WBC 9.6, RBC 4.20 L, Hgb 11.3 L, Hct 34.8 L, MCV 82.9, MCH 26.9 L, MCHC 32.5, RDW Std Deviation 42.6, RDW Coeff of Skylar 14.0, Plt Count 264, MPV 10.8, Immature Gran % (Auto) 0.500, Neut % (Auto) 71.6 H, Lymph % (Auto) 15.7 L, [place] % (Auto) 10.4 H, Eos % (Auto) 1.5, Baso % (Auto) 0.3, Absolute Neuts (auto) 6.9, Absolute Lymphs (auto) 1.51, Nucleated RBC % 0 08/05/22 06:20: Blood Type A POSITIVE, Antibody Screen NEGATIVE 08/05/22 09:20: Vitamin D 25-Hydroxy 44.5 08/05/22 23:45: Urine Color Yellow, Urine Clarity Clear, Urine pH 6.0, Ur Specific [place] 1.015, Urine Protein 15 H, Urine Glucose (UA) Normal, Urine Ketones 15 H, Urine Occult Blood Negative, Urine Nitrite Negative, Urine Bilirubin Negative, Urine Urobilinogen Normal, Ur Leukocyte Esterase Negative, Urine RBC 0-5 SEEN, Urine WBC 0 SEEN, Ur Squamous Epith Cells 0 SEEN, Urine Bacteria 1+, Urine Mucus 2+ 08/06/22 05:22: WBC 14.8 H, RBC 3.51 L, Hgb 9.2 L, Hct 29.7 L, MCV 84.6, MCH 26.2 L, MCHC 31.0 L, RDW Std Deviation 43.3, RDW Coeff of Skylar 14.0, Plt Count 258, MPV 10.6, Immature Gran % (Auto) 0.600, Neut % (Auto) 86.0 H, Lymph % (Auto) 5.0 L, [place] % (Auto) 8.3, Eos % (Auto) 0.0, Baso % (Auto) 0.1, Absolute Neuts (auto) 12.8 H, Absolute Lymphs (auto) 0.74 L, Nucleated RBC % 0 08/06/22 05:22: Sodium 143, Potassium 4.2, Chloride 112 H, Carbon Dioxide 25.0, Anion Gap 6, BUN 29 H, Creatinine 0.76, Estim Creat Clear Calc 56.26, Est GFR (MDRD) Af Amer 128, Est GFR (MDRD) Non-Af 106, BUN/Creatinine Ratio 38.2 H, Glucose 132 H, Calcium 7.5 L, Phosphorus 2.7, Magnesium 2.2 Micro: Microbiology 08/05/22 01:10 Nasal Secretion SARS-CoV-2 Antigen (Rapid) - Final Radiography Diagnostic Testing: Radiology Impression Hip X-Ray 08/05/22 13:49 IMPRESSION: No radiopaque foreign body is seen. Electronically Signed: Albino Barth MD at 14:23 EDT , Hip X-Ray 08/05/22 15:00 IMPRESSION: Status post left total hip replacement. There is good alignment. Postoperative soft tissue changes. Electronically Signed: Albino Barth MD at 15:48 EDT , Physical Exam Narrative General - A&Ox person, NAD Left lower extremity -incisional dressing C/D/I. SILT Sural, Saphenous, SPN, DPN, Tibial N. distributions. DP, PT 2+. BCR. DF, PF, EHL /5. No calf TTP. Assessment & Plan Assessment/Plan (1) Fracture of femoral neck, left: QUALIFIERS: Encounter type: initial encounter Fracture type: closed Qualified Code(s): S72.002A - Fracture of unspecified part of neck of left femur, initial encounter for closed fracture PLAN: POD#1 s/p left hip hemiarthroplasty -Patient appears to be doing well from my standpoint. He is much more conversational this morning. He appears comfortable. - Pain control - Medicine following for medical management - PT/OT-posterior precautions, weightbearing as tolerated left lower extremity - Acute blood loss anemia secondary to expected drop from surgery blood loss, blood loss from preoperative fracture and hemodilution element. No indication for transfusion. - DVT PPX -Multimodal with SCDs, JACEY castillo, early mobilization, Lovenox - Case management - D/C planning
[2022-08-06] MEDS: 0.9% Normal Saline 1,000 ML 75 ML IV (06:47)
--- NOTE | 2022-08-06 07:25 | NURSING ---
Pt has not voided since last straight cath. Bladder scanned pt for 302ml urine. Will continue to monitor
--- NOTE | 2022-08-06 07:36 | PN.HOSP_ITS ---
Reason for Visit Reason for Visit: Diagnoses Elevated white blood cell count, unspecified (08/04/22) Fracture of unspecified part of neck of left femur, initial encounter for closed fracture (08/04/22) Subjective Subjective Follow-up for left hip fracture after hemiarthroplasty. Patient has a history of anoxic brain injury and normally oriented x1. Objective Data Objective Data Vital Signs: Vital Signs Temp Pulse Resp BP Pulse Ox O2 Del Method O2 Flow Rate 99.6 F H 100 18 118/66 93 Nasal Cannula 1 08/06/22 03:36 08/06/22 03:36 08/06/22 03:36 08/06/22 03:36 08/06/22 07:08 08/06/22 07:08 08/06/22 07:08 Oxygen Flow Rate (L/min) 1 Oxygen Delivery Method Nasal Cannula Weight: 141 lb 12.116 oz Body Mass Index (BMI) 22.1 Intake & Output: Intake and Output for Last 24 Hours 08/04/22 08/05/22 08/06/22 23:59 23:59 23:59 Intake Total 1180.25 / 1180.25 1050 / 1050 Output Total 850 / 850 Balance 1180.25 / 330.25 200 / 200 Lab / Micro Data Result Diagrams: 08/06/22 05:22 08/06/22 05:22 Labs: Laboratory Results - last 24 hr 08/05/22 06:20: Blood Type A POSITIVE, Antibody Screen NEGATIVE 08/05/22 09:20: Vitamin D 25-Hydroxy 44.5 08/05/22 23:45: Urine Color Yellow, Urine Clarity Clear, Urine pH 6.0, Ur Specific [place] 1.015, Urine Protein 15 H, Urine Glucose (UA) Normal, Urine Ketones 15 H, Urine Occult Blood Negative, Urine Nitrite Negative, Urine Bilirubin Negative, Urine Urobilinogen Normal, Ur Leukocyte Esterase Negative, Urine RBC 0-5 SEEN, Urine WBC 0 SEEN, Ur Squamous Epith Cells 0 SEEN, Urine Bacteria 1+, Urine Mucus 2+ 08/06/22 05:22: WBC 14.8 H, RBC 3.51 L, Hgb 9.2 L, Hct 29.7 L, MCV 84.6, MCH 26.2 L, MCHC 31.0 L, RDW Std Deviation 43.3, RDW Coeff of Skylar 14.0, Plt Count 258, MPV 10.6, Immature Gran % (Auto) 0.600, Neut % (Auto) 86.0 H, Lymph % (Auto) 5.0 L, [place] % (Auto) 8.3, Eos % (Auto) 0.0, Baso % (Auto) 0.1, Absolute Neuts (auto) 12.8 H, Absolute Lymphs (auto) 0.74 L, Nucleated RBC % 0 08/06/22 05:22: Sodium 143, Potassium 4.2, Chloride 112 H, Carbon Dioxide 25.0, Anion Gap 6, BUN 29 H, Creatinine 0.76, Estim Creat Clear Calc 56.26, Est GFR (MDRD) Af Amer 128, Est GFR (MDRD) Non-Af 106, BUN/Creatinine Ratio 38.2 H, Glucose 132 H, Calcium 7.5 L, Phosphorus 2.7, Magnesium 2.2 Micro: Microbiology 08/05/22 01:10 Nasal Secretion SARS-CoV-2 Antigen (Rapid) - Final Radiography Diagnostic Testing: Radiology Impression Hip X-Ray 08/05/22 13:49 IMPRESSION: No radiopaque foreign body is seen. Electronically Signed: Albino Barth MD at 14:23 EDT , Hip X-Ray 08/05/22 15:00 IMPRESSION: Status post left total hip replacement. There is good alignment. Postoperative soft tissue changes. Electronically Signed: Albino Barth MD at 15:48 EDT , Physical Exam Narrative Physical exam General: Awake, cooperative, oriented x1. HEENT: Atraumatic, PERRLA, EOMI, Normocephalic. Black discoloration around left supraorbital region. Improving. Oral: Oral mucosa moist. No Gingival or Mucosal Lesions/ Ulcerations Neck: Supple, No JVD, Negative Carotid Bruits Lungs: Air entry diminished in bilateral lung bases. No crepitation/rhonchi Cardiovascular: Regular rate, Regular Rhythm, Normal S1, Normal S2, No murmurs Abdomen: Bowel Sounds Present, Soft, Non Tender, Non-Distended : No renal angle tenderness. No suprapubic tenderness. Extremities: No edema, Capillary Refill Less than 3 Seconds Skin: No rashes, No breakdown Musculoskeletal: Left hip surgical dressing is dry. No hematoma. Mild tenderness present. Mild swelling of left hand. Neurological: Slow understanding and comprehension. No acute focal deficit. Psych/Mental Status: Flat affect, cognitive deficit. Anoxic brain injury. Assessment & Plan Assessment/Plan (1) Fracture of femoral neck, left: QUALIFIERS: Encounter type: initial encounter Fracture type: closed Qualified Code(s): S72.002A - Fracture of unspecified part of neck of left femur, initial encounter for closed fracture (2) Leukocytosis: PLAN: Plan Patient was admitted after fall twice a day before yesterday. Patient could not get out of the bed and his pain in the left leg therefore brought to ED. 1. Left displaced femoral neck fracture: Patient had left hip hemiarthroplasty on 08/05/2022. -Imaging on presentation demonstrates left impacted subcapital fracture with moderate varus deformity. PT and OT. Pain control. VTE prophylaxis. Vitamin D 25-hydroxy normal at 44.5. 2. Mild acute postoperative blood loss anemia with history of mild chronic normocytic anemia: Patient baseline hemoglobin is around 12 g. It dropped to 9.2 after surgery. Does not need blood transfusion or iron infusion. Overall ferrous sulfate and vitamin C History of ventricular fibrillation -Has ICD -Saw Dr. Sanchez in 05/01/2022 and has had no ICD discharges and no recurrent ventricular dysrhythmias CAD/ischemic cardiomyopathy/HPL/Prinzmetal angina -Aspirin resumed. 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 Enoxaparin 40 mg subcu daily. Microbiology Past 72 Hours 08/05/22 01:10 Nasal Secretion SARS-CoV-2 Antigen (Rapid) - Final Laboratory Results 08/05/22 06:20: Blood Type A POSITIVE, Antibody Screen NEGATIVE 08/05/22 09:20: Vitamin D 25-Hydroxy 44.5 08/05/22 23:45: Urine Color Yellow, Urine Clarity Clear, Urine pH 6.0, Ur Specific [place] 1.015, Urine Protein 15 H, Urine Glucose (UA) Normal, Urine Ketones 15 H, Urine Occult Blood Negative, Urine Nitrite Negative, Urine Bilirubin Negative, Urine Urobilinogen Normal, Ur Leukocyte Esterase Negative, Urine RBC 0-5 SEEN, Urine WBC 0 SEEN, Ur Squamous Epith Cells 0 SEEN, Urine Bacteria 1+, Urine Mucus 2+ 08/06/22 05:22: WBC 14.8 H, RBC 3.51 L, Hgb 9.2 L, Hct 29.7 L, MCV 84.6, MCH 26.2 L, MCHC 31.0 L, RDW Std Deviation 43.3, RDW Coeff of Skylar 14.0, Plt Count 258, MPV 10.6, Immature Gran % (Auto) 0.600, Neut % (Auto) 86.0 H, Lymph % (Auto) 5.0 L, [place] % (Auto) 8.3, Eos % (Auto) 0.0, Baso % (Auto) 0.1, Absolute Neuts (auto) 12.8 H, Absolute Lymphs (auto) 0.74 L, Nucleated RBC % 0 08/06/22 05:22: Sodium 143, Potassium 4.2, Chloride 112 H, Carbon Dioxide 25.0, Anion Gap 6, BUN 29 H, Creatinine 0.76, Estim Creat Clear Calc 56.26, Est GFR (MDRD) Af Amer 128, Est GFR (MDRD) Non-Af 106, BUN/Creatinine Ratio 38.2 H, Glucose 132 H, Calcium 7.5 L, Phosphorus 2.7, Magnesium 2.2 Charges/Coding Visit Charges Inpatient E&M: 10977 Subs Hosp L2
[2022-08-06] MEDS: Aspirin E.C. 81 MG Tablet PO (08:03)
[2022-08-06] MEDS: Calcium Carbonate 500 MG Tablet PO ×3 (08:05→16:56)
[2022-08-06] MEDS: amLODIPine 2.5 MG Tablet PO (09:17)
[2022-08-06] MEDS: Famotidine 20 MG Tablet PO (09:17)
[2022-08-06] MEDS: Tolterodine Tartrate 4 MG CAP.SA PO (09:17)
[2022-08-06] MEDS: lamoTRIgine 100 MG Tablet PO (09:17)
--- NOTE | 2022-08-06 09:45 | CASEMGMT ---
Addendum entered by Ingris Mora 08/06/22 11:04: TC to again, left message. Original Note: TC to pt on home phone and cell phone to complete assessment. Awaiting returned call.
--- NOTE | 2022-08-06 11:39 | CASEMGMT ---
RN TARA Assessment: TC to pt for initial transition planning/care coordination assessment. RN CM introduced self and role at [facility], pt voices understanding and consents to assessment. Care providers, pharmacy, and demographics verified/updated. Admitting Dx: L hip fracture PCP:Osorio Specialists:Laura cardio Preferred Pharmacy: [facility] Insurance: [employer] [facility] Prescription Benefit: yes LNOK: Hope Kenny, Living Arrangements: Pt lives in a basement apt of a ranch house with no steps to enter with his . His son and future dil live upstairs. states prior to this hospitalization pt was physically hayley to bathe self but needed verbal cueing on what to do. prepares meals and does laundry. Transportation: Pt provides transportation. DME/HHC/SNF: Pt has a w/c, cane and FWW at home. Pt has no hx of HHC or SNF stays. Discussed with pt therapy eval. She is hesitant to have pt go to a nursing facility for therapy but then thought it would be best for pt. Patient was provided a verbal list of SNF providers including quality and resource use data and consistent with the patient?s preferred geographic region, medical needs, and insurance network from the [employer] Guide. Pt has chosen [facility] first followed by [facility]. Updated SW. Pt states no further concerns/needs. CM to follow. Advised pt to ask CM if any further question/concerns/needs arise, voices understanding. Pt Goal: SNF Plan: SNF
--- NOTE | 2022-08-06 12:03 | CASEMGMT ---
Addendum entered by Mitzi Aguillon 08/06/22 13:17: Paula from [facility] reached out with acceptance for pt. LEYLA asked Paula to begin precert as MD Kent shared in AM rounds that pt is medically ready. LEYLA called pt , Erika, to inform of acceptance. Hope voiced understanding and will wait for insurance auth. PLAN: TCU, pending precert [place] Original Note: Social Work RN CM informed LEYLA that had chose [facility] and then [place] as second choice. LEYLA sent referral to Paula at [facility] via [employer]. Paula to review and make determination this afternoon. PLAN: TCU, pending acceptance and precert. [place]
[2022-08-06] MEDS: oxyCODONE 5 MG Tablet PO ×2 (13:03→20:27)
[2022-08-06] MEDS: Ascorbic Acid 500 MG Tablet PO (16:57)
[2022-08-06] MEDS: Ferrous Sulfate 325 MG Tablet PO (16:58)
[2022-08-06] MEDS: Pravastatin 80 MG Tablet PO (20:27)
[2022-08-06] MEDS: OLANZapine 2.5 MG Tablet 7.5 MG PO (20:27)
[2022-08-06] MEDS: traZODone 100 MG Tablet PO (20:28)
[2022-08-06] MEDS: Multivitamins,Therapeutic Tablet 1 TABLET PO (20:28)
[2022-08-06] MEDS: Acetaminophen 500 MG Tablet 1000 MG PO (23:20)
[2022-08-06] MEDS: Tamsulosin HCl 0.4 MG Capsule PO (23:20)
[2022-08-07 02:52] VITALS: BP 118/62; PULSE 93; RESP 16; TEMP 36.7; O2SAT 93
[2022-08-07] MEDS: Acetaminophen 500 MG Tablet 1000 MG PO ×2 (04:54→13:19)
[2022-08-07] MEDS: Enoxaparin 40 MG/0.4 ML Syringe SC (04:55)
[2022-08-07 07:12] LABS: Absolute Neutrophil Count 6.8 X10^3/uL (2.0-7.7); Basophil# 0.02 X10^3/uL; Basophil% 0.2 % (0-1); Eosinophil# 0.14 X10^3/uL; Eosinophils% 1.4 % (0-5); Hematocrit 30.1 % (40-54); Hemoglobin 9.2 g/dL (13.0-16.5); Lymphocyte % 17.5 % (19-41); Mean Corp Hgb Conc 30.6 g/dL (32-36); Mean Corpuscular Hgb 26.1 pg (27.0-32.0); Mean Corpuscular Volume 85.3 fL (80-94); Mean Platelet Vol. 10.5 fl (6.2-12.0); Monocyte# 0.93 X10^3/uL; Monocyte% 9.6 % (0-10); NRBC Flagged by Analyzer 0 % (0-5); Neutrophil # 6.82 X10^3/uL (2.7-7.7); Neutrophil % 70.4 % (47-70); Platelet Count 273 K/mm3 (150-450); RBC Distribution Width SD 43.4 fl (35.1-43.9); Red Blood Count 3.53 M/mm3 (4.6-6.2); White Blood Count 9.7 K/mm3 (4.4-11.0)
[2022-08-07 07:15] VITALS: O2SAT 94
[2022-08-07 07:41] LABS: Anion Gap 7 (5-15); BUN 25 mg/dL (7-18); BUN/Creat Ratio 27.1 RATIO (10-20); Calcium,Total 8.2 mg/dL (8.5-10.1); Chloride 109 mmol/L (98-107); Creatinine, Serum 0.92 mg/dL (0.70-1.30); EST Glomerular Filtration Rate 84 mL/min (>60); Est Glom Filt Rate - Afr Amer 102 mL/min (>60); Estimated Creatinine Clearance 61.15 ml/min; Glucose 104 mg/dL (74-106); Potassium 3.9 mmol/L (3.5-5.1); Sodium Level 143 mmol/L (136-145)
[2022-08-07 08:00] VITALS: O2SAT 91
[2022-08-07] MEDS: Famotidine 20 MG Tablet PO (08:21)
[2022-08-07] MEDS: amLODIPine 2.5 MG Tablet PO (08:21)
[2022-08-07] MEDS: lamoTRIgine 100 MG Tablet PO (08:21)
[2022-08-07] MEDS: Calcium Carbonate 500 MG Tablet PO ×2 (08:21→13:20)
[2022-08-07] MEDS: Ascorbic Acid 500 MG Tablet PO (08:21)
[2022-08-07] MEDS: Tolterodine Tartrate 4 MG CAP.SA PO (08:21)
[2022-08-07] MEDS: Aspirin E.C. 81 MG Tablet PO (08:22)
[2022-08-07 08:30] VITALS: BP 137/80; PULSE 88; RESP 18; TEMP 36.3; O2SAT 96
--- NOTE | 2022-08-07 10:18 | TREXTCAR_ITS ---
Diet Diet Order/Speech Therapy: 08/06/22 08:04 Diet: Regular - General Food consistency:: Soft & Bite Sized Liquid Consistency:: Regular/Thin Is pt able to select menu?: No Routine Orders/Code Status Suppository Type: Dulcolax 10mg Suppository Frequency: Daily PRN Code Status: Full Code Wound(s) Generalized: Wound Type: Abrasion left hip: Wound Type: Surgical Incision Therapies Weight Bearing: Weight bearing as tolerated Extremity Affected:: Left Lower Physical Therapy: Eval and Treat Occupational Therapy: Eval and Treat Speech Therapy: Eval and Treat Problem/Diagnosis (1) Fracture of femoral neck, left: Status: Acute Code(s): S72.002A - Fracture of unspecified part of neck of left femur, initial encounter for closed fracture (2) Leukocytosis: Status: Acute Code(s): D72.829 - Elevated white blood cell count, unspecified Plan Patient was admitted after fall twice a day before yesterday. Patient could not get out of the bed and his pain in the left leg therefore brought to ED. 1. Left displaced femoral neck fracture: Patient had left hip hemiarthroplasty on 08/05/2022. -Imaging on presentation demonstrates left impacted subcapital fracture with moderate varus deformity. PT and OT. Pain control. VTE prophylaxis. Vitamin D 25-hydroxy normal at 44.5. 2. Mild acute postoperative blood loss anemia with history of mild chronic normocytic anemia: Patient baseline hemoglobin is around 12 g. It dropped to 9.2 after surgery. Does not need blood transfusion or iron infusion. Overall ferrous sulfate and vitamin C History of ventricular fibrillation -Has ICD -Saw Dr. Sanchez in 05/01/2022 and has had no ICD discharges and no recurrent ventricular dysrhythmias CAD/ischemic cardiomyopathy/HPL/Prinzmetal angina -Aspirin resumed. 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 Enoxaparin 40 mg subcu daily. Microbiology Past 72 Hours 03/21/23 01:10 Nasal Secretion SARS-CoV-2 Antigen (Rapid) - Final Laboratory Results 08/05/22 06:20: Blood Type A POSITIVE, Antibody Screen NEGATIVE 08/05/22 09:20: Vitamin D 25-Hydroxy 44.5 08/05/22 23:45: Urine Color Yellow, Urine Clarity Clear, Urine pH 6.0, Ur Specific [place] 1.015, Urine Protein 15 H, Urine Glucose (UA) Normal, Urine Ketones 15 H, Urine Occult Blood Negative, Urine Nitrite Negative, Urine Bilirubin Negative, Urine Urobilinogen Normal, Ur Leukocyte Esterase Negative, Urine RBC 0-5 SEEN, Urine WBC 0 SEEN, Ur Squamous Epith Cells 0 SEEN, Urine Bacteria 1+, Urine Mucus 2+ 08/06/22 05:22: WBC 14.8 H, RBC 3.51 L, Hgb 9.2 L, Hct 29.7 L, MCV 84.6, MCH 26.2 L, MCHC 31.0 L, RDW Std Deviation 43.3, RDW Coeff of Skylar 14.0, Plt Count 258, MPV 10.6, Immature Gran % (Auto) 0.600, Neut % (Auto) 86.0 H, Lymph % (Auto) 5.0 L, [place] % (Auto) 8.3, Eos % (Auto) 0.0, Baso % (Auto) 0.1, Absolute Neuts (auto) 12.8 H, Absolute Lymphs (auto) 0.74 L, Nucleated RBC % 0 08/06/22 05:22: Sodium 143, Potassium 4.2, Chloride 112 H, Carbon Dioxide 25.0, Anion Gap 6, BUN 29 H, Creatinine 0.76, Estim Creat Clear Calc 56.26, Est GFR (MDRD) Af Amer 128, Est GFR (MDRD) Non-Af 106, BUN/Creatinine Ratio 38.2 H, Glucose 132 H, Calcium 7.5 L, Phosphorus 2.7, Magnesium 2.2 Allergies/Procedures Done in Hospital Allergies pseudoephedrine Allergy (Verified 08/04/22 14:38) SEVERE HEADACHE triprolidine Allergy (Verified 08/04/22 14:38) SEVERE HEADACHE Type of Care/Length of Stay Estimated LOS: Convalescent Care Less Than 30 days Type of Care Needed: Skilled Rehab Potential: Good Prognosis: Good Additional Orders/Day of Discharge Day of Discharge: 08/07/22 Dietary and Speech Recommendations Dietitian Recommendations/Changes: Recommend advance PO post-op as tolerated to Regular Diet. Add ensure plus high protein w/ medpass as needed when PO adequacy established post-op with meals. Trend weights as available. Discharge Plan Admission Admit Date/Time: 08/04/22 17:12 Primary Reason for Your Visit: Fall with left hip fracture. Attending Provider: Jack Ogden Primary Care Provider: Juwan Ac Consulting Providers: Alvarez Jaime ; Stan Campa ; Shanelle Truong Discharge Orders/Prescriptions Prescriptions: New ascorbic acid (vitamin C) 500 mg Tablet 500 mg PO BIDCM Qty: 0 0RF acetaminophen 500 mg Tablet 1,000 mg PO Q8 Qty: 0 0RF Rx Instructions: For 7 days and then as needed for mild to moderate pain ferrous sulfate [FeroSul] 325 mg (65 mg iron) Tablet 325 mg PO DAILY@1200 Qty: 0 0RF tamsulosin 0.4 mg Capsule 0.4 mg PO DAILY@1730 Qty: 0 0RF oxycodone 5 mg Tablet 2.5 mg PO Q4H PRN PRN (Reason: Pain Score 4-10) 3 Days Qty: 7 0RF Rx Instructions: 2.5 mg for moderate pain 4-6/10 intensity and 5 mg for severe 7-10 intensity Eliquis 2.5 mg tablet 2.5 mg PO BID 30 Days Qty: 60 0RF Continued oxybutynin chloride 15 MG tablet extended release 24hr 15 mg PO DAILY trazodone 50 MG tablet 100 mg PO QHS amlodipine 2.5 MG tablet 2.5 mg PO DAILY famotidine 20 MG tablet 20 mg PO DAILY multivitamin with folic acid 1 TABLET tablet 1 tab PO QHS calcium carbonate-vitamin D3 1 EACH tablet 1 ea PO BID lamotrigine 100 mg tablet 100 mg PO DAILY olanzapine 7.5 MG tablet 7.5 mg PO QHS diphenhydramine HCl [Benadryl] 25 mg Capsule 25 mg PO Q6H PRN (Reason: ASSERTIVE BEHAVIOR) pravastatin 80 mg tablet 80 mg PO QHS Held aspirin [Adult Low Dose Aspirin] 81 mg tablet,delayed release (DR/EC) 81 mg PO DAILY Hold Instructions: Hold while patient is taking Eliquis 2.5 mg twice daily Referrals / Follow Up: Stan Bernal DO [Med Staff - Active Staff] - Within 1 Week Juwan Ac MD [Primary Care Provider] - Within 2 Weeks Disposition Disposition (needs filled in before D/C Order can be placed): [facility]-Way Facility (1) Fracture of femoral neck, left Qualifiers: Encounter type: initial encounter Fracture type: closed Qualified Code(s): S72.002A - Fracture of unspecified part of neck of left femur, initial encounter for closed fracture
--- NOTE | 2022-08-07 12:35 | PCM.DC.SUM ---
Providers Date of Admission: 08/04/22 Date of Discharge: 08/07/22 Primary Care Physician: Dr. Juwan Ac MD Consultations 08/04/22 18:03 Consult: Orthopedics Routine Consulting Provider: Alvarez Jaime Reason for Consult: Left hip fracture EMERGENT Consult: No MD Notified: Yes Date Notified: 08/04/22 Time Notified: 17:17 Method of Notification: ED Physician Initiated Reason For Visit: LEFT HIP FRACTURE Diagnosis Discharge Diagnosis (1) Fracture of femoral neck, left: Status: Acute Code(s): S72.002A - Fracture of unspecified part of neck of left femur, initial encounter for closed fracture Qualifiers: Encounter type: initial encounter Fracture type: closed Qualified Code(s): S72.002A - Fracture of unspecified part of neck of left femur, initial encounter for closed fracture (2) Leukocytosis: Status: Acute Code(s): D72.829 - Elevated white blood cell count, unspecified Plan Patient was admitted after fall twice a day before yesterday. Patient could not get out of the bed and his pain in the left leg therefore brought to ED. 1. Left displaced femoral neck fracture: Patient had left hip hemiarthroplasty on 08/05/2022. -Imaging on presentation demonstrates left impacted subcapital fracture with moderate varus deformity. PT and OT. Pain control. VTE prophylaxis. Vitamin D 25-hydroxy normal at 44.5. 08/07: No obvious hematoma. Continue PT and OT. Pain is much improved. Patient is being discharged to SNF. Eliquis 2.5 mg p.o. twice daily for 30 days as DVT prophylaxis. Hold baby aspirin while patient is taking Eliquis. 2. Mild acute postoperative blood loss anemia with history of mild chronic normocytic anemia: Patient baseline hemoglobin is around 12 g. It dropped to 9.2 after surgery. Does not need blood transfusion or iron infusion. Overall ferrous sulfate and vitamin C : Patient discharged on ferrous sulfate and vitamin C. History of ventricular fibrillation -Has ICD -Saw Dr. Sanchez in 05/01/2022 and has had no ICD discharges and no recurrent ventricular dysrhythmias CAD/ischemic cardiomyopathy/HPL/Prinzmetal angina -Aspirin resumed. 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 Enoxaparin 40 mg subcu daily. Discharge medication reconciliation done. Discharge follow-up instructions completed. Discharge process discussed with the patient and all questions were answered to patient's satisfaction. Total time spent, exact 35 minutes on discharge meds reconciliation, examination, coordination of care with nurses and ancillary staff, review of imaging and blood test and discussion with the patient on follow-up instructions. Medications at Discharge Home Medications amlodipine 2.5 mg tablet 2.5 mg PO DAILY HIGH BLOOD PRESSURE 07/04/15 calcium carbonate 600 mg-vitamin D3 20 mcg (800 unit) tablet 1 ea PO BID SUPPLEMENT 07/04/15 famotidine 20 mg tablet 20 mg PO DAILY ACID REFLUX 07/04/15 multivitamin with folic acid 400 mcg tablet 1 tab PO QHS SUPPLEMENT 07/04/15 oxybutynin chloride 15 mg tablet,extended release 24 hr 15 mg PO DAILY OVERACTIVE BLADDER 07/04/15 trazodone 50 mg tablet 100 mg PO QHS INSOMNIA/DEPRESSION 07/04/15 olanzapine 7.5 mg tablet 7.5 mg PO QHS MENTAL HEALTH 12/03/15 lamotrigine 100 mg tablet 100 mg PO DAILY MENTAL HEALTH 09/15/18 diphenhydramine HCl 25 mg capsule (Benadryl) 25 mg PO Q6H PRN ASSERTIVE BEHAVIOR 02/07/21 aspirin 81 mg tablet,delayed release (Adult Low Dose Aspirin) 81 mg PO DAILY HEART HEALTH 05/01/22 pravastatin 80 mg tablet 80 mg PO QHS HIGH CHOLESTEROL 08/04/22 acetaminophen 500 mg tablet 1,000 mg PO Q8 #0 tabs 08/07/22 apixaban 2.5 mg tablet (Eliquis) 2.5 mg PO BID 30 days #60 tabs 08/07/22 ascorbic acid (vitamin C) 500 mg tablet 500 mg PO BIDCM #0 tabs 08/07/22 ferrous sulfate 325 mg (65 mg iron) tablet (FeroSul) 325 mg PO DAILY@1200 #0 tabs 08/07/22 oxycodone 5 mg tablet 2.5 mg PO Q4H PRN PRN Pain Score 4-10 3 days #7 tabs 08/07/22 tamsulosin 0.4 mg capsule 0.4 mg PO DAILY@1730 #0 caps 08/07/22 Physical Exam Narrative Seen and examined on the day of discharge. Physical exam General: Awake, cooperative, oriented x1. No acute change. HEENT: Atraumatic, PERRLA, EOMI, Normocephalic. Black discoloration around left supraorbital region. Improving. Oral: Oral mucosa moist. No Gingival or Mucosal Lesions/ Ulcerations Neck: Supple, No JVD, Negative Carotid Bruits Lungs: Air entry diminished in bilateral lung bases. No crepitation/rhonchi Cardiovascular: Regular rate, Regular Rhythm, Normal S1, Normal S2, No murmurs Abdomen: Bowel Sounds Present, Soft, Non Tender, Non-Distended : No renal angle tenderness. No suprapubic tenderness. Extremities: No edema, Capillary Refill Less than 3 Seconds Skin: No rashes, No breakdown Musculoskeletal: Left hip surgical dressing is dry. No hematoma. Mild tenderness improved. Neurological: Slow understanding and comprehension. No acute focal deficit. Psych/Mental Status: Flat affect, cognitive deficit. Anoxic brain injury. Weight / BMI Weight Weight: 141 lb 12.116 oz Body Mass Index (BMI) 22.1 ABG / Lab / Microbiology Data Result Diagrams: 08/07/22 06:46 08/07/22 06:46 Laboratory: Laboratory Results - last 24 hr 08/07/22 06:46: WBC 9.7, RBC 3.53 L, Hgb 9.2 L, Hct 30.1 L, MCV 85.3, MCH 26.1 L, MCHC 30.6 L, RDW Std Deviation 43.4, RDW Coeff of Skylar 14.0, Plt Count 273, MPV 10.5, Immature Gran % (Auto) 0.900, Neut % (Auto) 70.4 H, Lymph % (Auto) 17.5 L, [place] % (Auto) 9.6, Eos % (Auto) 1.4, Baso % (Auto) 0.2, Absolute Neuts (auto) 6.8, Absolute Lymphs (auto) 1.70, Nucleated RBC % 0 08/07/22 06:46: Sodium 143, Potassium 3.9, Chloride 109 H, Carbon Dioxide 27.0, Anion Gap 7, BUN 25 H, Creatinine 0.92, Estim Creat Clear Calc 61.15, Est GFR (MDRD) Af Amer 102, Est GFR (MDRD) Non-Af 84, BUN/Creatinine Ratio 27.1 H, Glucose 104, Calcium 8.2 L Microbiology: Microbiology 08/07/22 11:50 Nasal Secretion SARS-CoV-2 Antigen (Rapid) - Final 08/05/22 01:10 Nasal Secretion SARS-CoV-2 Antigen (Rapid) - Final Meaningful Use Info Meaningful Use Diagnoses (Choose all that apply): None applicable Discharge Plan Admission Admit Date/Time: 08/04/22 17:12 Primary Reason for Your Visit: Fall with left hip fracture. Attending Provider: Jack Ogden Primary Care Provider: Juwan Ac Consulting Providers: Alvarez Jaime ; Stan Campa ; Shanelle Truong Discharge Orders/Prescriptions Prescriptions: New ascorbic acid (vitamin C) 500 mg Tablet 500 mg PO BIDCM Qty: 0 0RF acetaminophen 500 mg Tablet 1,000 mg PO Q8 Qty: 0 0RF Rx Instructions: For 7 days and then as needed for mild to moderate pain ferrous sulfate [FeroSul] 325 mg (65 mg iron) Tablet 325 mg PO DAILY@1200 Qty: 0 0RF tamsulosin 0.4 mg Capsule 0.4 mg PO DAILY@1730 Qty: 0 0RF oxycodone 5 mg Tablet 2.5 mg PO Q4H PRN PRN (Reason: Pain Score 4-10) 3 Days Qty: 7 0RF Rx Instructions: 2.5 mg for moderate pain 4-6/10 intensity and 5 mg for severe 7-10 intensity Eliquis 2.5 mg tablet 2.5 mg PO BID 30 Days Qty: 60 0RF Continued oxybutynin chloride 15 MG tablet extended release 24hr 15 mg PO DAILY trazodone 50 MG tablet 100 mg PO QHS amlodipine 2.5 MG tablet 2.5 mg PO DAILY famotidine 20 MG tablet 20 mg PO DAILY multivitamin with folic acid 1 TABLET tablet 1 tab PO QHS calcium carbonate-vitamin D3 1 EACH tablet 1 ea PO BID lamotrigine 100 mg tablet 100 mg PO DAILY olanzapine 7.5 MG tablet 7.5 mg PO QHS diphenhydramine HCl [Benadryl] 25 mg Capsule 25 mg PO Q6H PRN (Reason: ASSERTIVE BEHAVIOR) pravastatin 80 mg tablet 80 mg PO QHS Held aspirin [Adult Low Dose Aspirin] 81 mg tablet,delayed release (DR/EC) 81 mg PO DAILY Hold Instructions: Hold while patient is taking Eliquis 2.5 mg twice daily Referrals / Follow Up: Stan Bernal DO [Med Staff - Active Staff] - Within 1 Week Juwan Ac MD [Primary Care Provider] - Within 2 Weeks Disposition Disposition (needs filled in before D/C Order can be placed): [facility] Facility Charges/Coding Visit Charges Inpatient E&M: 07417 Disch Hosp >30min
[2022-08-07] MEDS: Ferrous Sulfate 325 MG Tablet PO (13:20)
--- NOTE | 2022-08-07 14:28 | CASEMGMT ---
Social Work Insurance authorization has evelyn obtained and physician updated that pt can discharge to TCU. Per physician, pt is ready for discharge today. Discharge orders faxed to TCU and Paula updated. SW met with pt and and informed of discharge plan and they are agreeable. Bedside nurse updated. Disposition: TCU, skilled level of care DOM Carreno
[2022-08-07 14:47] VITALS: BP 137/80; PULSE 88; RESP 18; TEMP 36.3; O2SAT 96
[2022-08-07 15:00] VITALS: BP 126/64; PULSE 89; RESP 18; TEMP 36.9; O2SAT 99
--- NOTE | 2022-08-07 15:44 | NURSING ---
Report called to tcu patient going in tcu 13
== END 2022-08-07 16:05 | disposition skilled nursing facility (03) | DRG 522 ==
LOC: ED 16:57 → MS3 17:20
PROVIDERS: Internal Medicine; Student in an Organized Health Care Education/Training Program; Admitting Provider Family Medicine; Emergency Provider Emergency Medicine; PCP Internal Medicine; Visit Provider Internal Medicine
PROC: 0SRS0J9 Replacement of Left Hip Joint, Femoral Surface with Synthetic Substitute, Cemented, Open Approach (ICD-10-PCS; CPT 27125; principal; 2022-08-05 10:25)
DX: S72.012A Unspecified intracapsular fracture of left femur, initial encounter for closed fracture (principal); E78.00 Pure hypercholesterolemia, unspecified; I10 Essential (primary) hypertension; S05.12XA Contusion of eyeball and orbital tissues, left eye, initial encounter; I25.5 Ischemic cardiomyopathy; I25.10 Atherosclerotic heart disease of native coronary artery without angina pectoris; W07.XXXA Fall from chair, initial encounter; I69.811 Memory deficit following other cerebrovascular disease; N32.81 Overactive bladder; F32.A Depression, unspecified; G47.00 Insomnia, unspecified; Z20.822 Contact with and (suspected) exposure to COVID-19; Z79.82 Long term (current) use of aspirin; Z79.01 Long term (current) use of anticoagulants; Z79.899 Other long term (current) drug therapy; Z87.891 Personal history of nicotine dependence; Z95.810 Presence of automatic (implantable) cardiac defibrillator
CPT/HCPCS: 36415; 70450; 71045; 72125; 73502; 80048; 81001; 82306; 83735; 84100; 85025; 86850; 86900; 86901; 87426; 88305; 88311; 93005; 94668; 97110; 97116; 97162; 97166; 97530; 97535; 99252; 99285; C1776; J7030; J7120; A4216; G0463; J2405

== ENCOUNTER 2022-08-07 16:18 | Inpatient (IN) | payer MEDICARE, SELFPAY ==
[2022-08-07 16:23] VITALS: BP 129/67; PULSE 91; RESP 12; RESP 18; TEMP 36.8; O2SAT 98; BMI 22.9
[2022-08-07] MEDS: Ensure Plus High Protein 120 ML LIQUID PO ×2 (17:35→20:45)
[2022-08-07] MEDS: Ascorbic Acid 500 MG Tablet PO (18:04)
[2022-08-07] MEDS: APIXABAN 2.5 MG TABLET (WCH) PO (18:04)
[2022-08-07] MEDS: Tamsulosin HCl 0.4 MG Capsule PO (18:04)
--- NOTE | 2022-08-07 20:07 | HP.PCM_ITS ---
HPI - General General Date of Admission: 08/07/22 Date of Service: 08/07/22 Chief Complaint: Here for rehabilitation. HPI Narrative 08/04/2022 ELBERT FRIEDMAN, is a 77 Male who presents to [facility] Emergency Department with fall. Fell out of chair to left, fell again, hit head twice. Left hip pain, unable to bear weight left leg. Chronic urinary incontinence. CT brain negative, Chest X-ray negative. X-ray showed left hip fracture. 08/04/2022 Admit to Hospital. Pain control, prepare for surgery. 08/05/2022 PT/OT. 08/05/2022 Dr. Bernal performed left hip hemiarthroplasty. 08/06/2022 Anoxic brain injury, oriented x 1 at baseline. PT/OT for debility. Pain control. Monitor hemoglobin 9.2. 08/07/2022 Admit to TCU with debility, here for rehabilitation, strengthening, prior to discharge home with . [facility] Medical History Anoxic brain damage Anoxic brain damage Atherosclerotic heart disease of [place] coronary artery without angina pectoris Cardiac arrest Cardiology follow-up encounter Closed left forearm fracture Encounter for long-term current use of high risk medication Former smoker Gastric reflux High cholesterol History of echocardiogram History of renal disease History of stress test Hyperlipidemia Hypertension Ischemic cardiomyopathy Memory deficit Nonspecific abnormal unspecified cardiovascular function study Presence of automatic implantable cardioverter-defibrillator Prinzmetal angina Prinzmetal angina Prostate disease Pure hypercholesterolemia Seizures Undiagnosed cardiac murmurs Ventricular fibrillation Wears dentures Home Medications amlodipine 2.5 mg tablet 2.5 mg PO DAILY HIGH BLOOD PRESSURE 07/04/15 [History Last Taken 08/03/22] calcium carbonate 600 mg-vitamin D3 20 mcg (800 unit) tablet 1 ea PO BID SUPPLEMENT 07/04/15 [History Last Taken 08/03/22] famotidine 20 mg tablet 20 mg PO DAILY ACID REFLUX 07/04/15 [History Last Taken 08/03/22] multivitamin with folic acid 400 mcg tablet 1 tab PO QHS SUPPLEMENT 07/04/15 [History Last Taken 08/03/22] oxybutynin chloride 15 mg tablet,extended release 24 hr 15 mg PO DAILY OVERACTI VE BLADDER 07/04/15 [History Last Taken 08/03/22] trazodone 50 mg tablet 100 mg PO QHS INSOMNIA/DEPRESSION 07/04/15 [History Last Taken 08/03/22] olanzapine 7.5 mg tablet 7.5 mg PO QHS MENTAL HEALTH 12/03/15 [History Last Taken 08/03/22] lamotrigine 100 mg tablet 100 mg PO DAILY MENTAL HEALTH 09/15/18 [History Last Taken 08/03/22] diphenhydramine HCl 25 mg capsule (Benadryl) 25 mg PO Q6H PRN ASSERTIVE BEHAVIOR 02/07/21 [History Last Taken Unknown] aspirin 81 mg tablet,delayed release (Adult Low Dose Aspirin) 81 mg PO DAILY HEART HEALTH 05/01/22 [History Last Taken 08/03/22] pravastatin 80 mg tablet 80 mg PO QHS HIGH CHOLESTEROL 08/04/22 [History Last Taken 08/03/22] acetaminophen 500 mg tablet 1,000 mg PO Q8 Pain 1-10 08/07/22 [History Last Taken Unknown] apixaban 2.5 mg tablet (Eliquis) 2.5 mg PO BID Blood Thinner 08/07/22 [History Last Taken Unknown] ascorbic acid (vitamin C) 500 mg tablet 500 mg PO BIDCM Supplement 08/07/22 [History Last Taken Unknown] ferrous sulfate 325 mg (65 mg iron) tablet (FeroSul) 325 mg PO DAILY@1200 Supplement 08/07/22 [History Last Taken Unknown] oxycodone 5 mg tablet 2.5 mg PO Q4H PRN PRN Pain Score 4-10 3 days #7 tabs 08/07/22 [Rx Last Taken Unknown] tamsulosin 0.4 mg capsule 0.4 mg PO DAILY@1730 Urinary Retention 08/07/22 [History Last Taken Unknown] Allergy/AdvReac Type Severity Reaction Status Date / Time pseudoephedrine Allergy SEVERE Verified 08/04/22 14:38 HEADACHE triprolidine Allergy SEVERE Verified 08/04/22 14:38 HEADACHE Family History Mother CAD (coronary artery disease) Surgical History History of cardiac catheterization History of esophagogastroduodenoscopy (EGD) History of hemorrhoidectomy History of shoulder surgery History of tonsillectomy Hx of colonoscopy Social History (Updated 08/07/22 @ 20:[address] Vikas Mccormack MD) household members: spouse Smoking Status: Former smoker alcohol intake: never substance use type: does not use caffeine: Yes Type: coffee Number of servings: 10 what type of physical activity do you participate in: none seatbelt use: always do you feel safe at home: Yes ROS Constitutional Constitutional: Denies chills, fever(s) or weight gain ENT HEENT: Denies headache(s), nasal congestion or nasal discharge Cardiovascular Cardiovascular: Denies chest pain or palpitations Respiratory/Chest Respiratory/Chest: Denies cough, excessive phlegm production or shortness of breath with exertion Gastrointestinal Gastrointestinal: Denies abdominal pain, nausea or vomiting Genitourinary Genitourinary: Denies dysuria Musculoskeletal Musculoskeletal: Denies joint pain or joint swelling Integumentary Integumentary: Denies rash or wounds Neurologic Neurologic: Denies focal weakness, numbness or tingling Psychiatric Psychiatric: Denies anxiety, auditory hallucinations, depression, homicidal ideation or suicidal ideation Vital Signs Vital Signs Vital Signs: 08/07/22 16:23 08/07/22 16:23 Temperature 98.3 F Temperature Source Temporal Pulse Rate 91 Pulse Rhythm Regular Pulse Strength Normal (2+) Respiratory Rate 18 12 Respiratory Effort Normal Non-Labored Respiratory Depth Normal Respiratory Pattern Normal Blood Pressure 129/67 H Blood Pressure Mean 87 Blood Pressure Source Monitor Blood Pressure Position Semi-Fowlers Blood Pressure Location Right Arm Pulse Ox 98 Oxygen Delivery Method Room Air Room Air Weight Weight: 66.423 kg Body Mass Index (BMI) 22.9 Physical Exam Const alert General Appearance: cooperative HEENT normocephalic Eyes PERRL and EOMs intact bilaterally Neck supple, no JVD and no carotid bruits Resp normal respiratory effort, normal air movement and clear to auscultation bilaterally Cardio regular rate and regular rhythm GI normal to inspection, nondistended, normoactive bowel sounds, non-tender and non-distended Extremity normal capillary refill General Extremity: Negative for edema Skin no rashes or lesions noted General Skin Exam: no breakdown Psych affect normal Appearance: appropriate Assessment & Plan Assessment/Plan (1) Debility: (2) Closed left hip fracture: (3) Prinzmetal angina: (4) Hypertension: (5) GERD (gastroesophageal reflux disease): (6) Overactive bladder: (7) Insomnia: (8) Hyperlipidemia: (9) Seizure disorder: (10) Coronary artery disease: (11) Anoxic brain injury: PLAN: Plan 77 year old male with below past medical history hospitalized for left hip fracture, underwent left hip hemiarthroplasty 08/05/[address] Bernal, admitted to TCU with debility, here for rehabilitation, strengthening, prior to discharge home with . * Debility - PT/OT. * Dysphagia - ST. * Pain - Tylenol 1000mg q8, Oxycodone 2.5mg q4h prn pain (4-10). * Bowel - senna/colace 2 tablets bid, Dulcolax 10mg pr x 1 prn. * Adult immunization - Administer pneumonia vaccine, covid19 vaccine, flu vaccine as appropriate. * DVT prophylaxis - Eliquis 2.5mg bid thru 09/06/2022. * Hypertension - Amlodipine 2.5mg daily. * Iron deficiency anemia - Ferrous sulfate 325mg daliy, Vitamin C 500mg bidcm. * Coronary artery disease - Aspirin 81mg to start 09/08/2022. * Anoxic brain injury - Benadryl 25mg q6h prn, Zyprexa 7.5mg qhs stable chronic congressional assistant use, GDR not recommended. * Nutrition - Ensure Plus 120ml 4x/day. * GERD - Famotidine 20mg daily. * Seizure disorder - Lamictal 100mg daily. * Skin irritation - Calmoseptine topical bid. * Hyperlipidemia - Pravastatin 80mg qhs. * BPH - Tamsulosin 0.4mg daily. * Overactive bladder - Tolterodine 4mg daily. * Insomnia - Trazodone 100mg qhs.
[2022-08-07] MEDS: Menthol/Lanolin/Calamine/Znox 113 GM Tube 1 APPLIC TOPICAL (20:38)
[2022-08-07] MEDS: traZODone 100 MG Tablet PO (20:39)
[2022-08-07] MEDS: OLANZapine 2.5 MG Tablet 7.5 MG PO (20:39)
[2022-08-07] MEDS: Acetaminophen 500 MG Tablet 1000 MG PO (20:40)
[2022-08-07] MEDS: Pravastatin 80 MG Tablet PO (20:40)
[2022-08-07] MEDS: oxyCODONE 5 MG Tablet PO (21:41)
[2022-08-08 04:10] VITALS: BP 138/67; PULSE 100
[2022-08-08] MEDS: oxyCODONE 5 MG Tablet PO (04:10)
[2022-08-08] MEDS: lamoTRIgine 100 MG Tablet PO (04:11)
[2022-08-08] MEDS: Acetaminophen 500 MG Tablet 1000 MG PO ×3 (04:11→20:44)
[2022-08-08] MEDS: APIXABAN 2.5 MG TABLET (WCH) PO ×2 (04:11→17:35)
[2022-08-08] MEDS: Famotidine 20 MG Tablet PO (04:11)
[2022-08-08] MEDS: Ensure Plus High Protein 120 ML LIQUID PO ×4 (04:13→20:44)
[2022-08-08] MEDS: amLODIPine 2.5 MG Tablet PO (04:13)
[2022-08-08] MEDS: Tolterodine Tartrate 4 MG CAP.SA PO (04:13)
[2022-08-08] MEDS: Menthol/Lanolin/Calamine/Znox 113 GM Tube 1 APPLIC TOPICAL ×2 (04:13→17:35)
[2022-08-08] MEDS: Senna/Docusate Sodium 1 Tablet 2 TABLET PO ×2 (04:17→17:35)
[2022-08-08 05:55] LABS: Absolute Lymphocyte Count 1.58 X10^3/uL (0.83-4.51); Absolute Neutrophil Count 7.5 X10^3/uL (2.0-7.7); Basophil# 0.02 X10^3/uL; Basophil% 0.2 % (0-1); Eosinophil# 0.19 X10^3/uL; Eosinophils% 1.8 % (0-5); Hematocrit 28.7 % (40-54); Hemoglobin 8.7 g/dL (13.0-16.5); Lymphocyte # 1.58 X10^3/ul (0.83-4.51); Lymphocyte % 15.3 % (19-41); Mean Corp Hgb Conc 30.3 g/dL (32-36); Mean Corpuscular Hgb 25.6 pg (27.0-32.0); Mean Corpuscular Volume 84.4 fL (80-94); Mean Platelet Vol. 10.4 fl (6.2-12.0); Monocyte# 0.87 X10^3/uL; Monocyte% 8.4 % (0-10); NRBC Flagged by Analyzer 0 % (0-5); Neutrophil # 7.51 X10^3/uL (2.7-7.7); Neutrophil % 72.6 % (47-70); Platelet Count 319 K/mm3 (150-450); RBC Distribution Width CV 14.1 % (11.6-14.6); RBC Distribution Width SD 43.4 fl (35.1-43.9); White Blood Count 10.4 K/mm3 (4.4-11.0)
[2022-08-08 06:19] LABS: Anion Gap 5 (5-15); BUN 19 mg/dL (7-18); BUN/Creat Ratio 24.3 RATIO (10-20); Calcium,Total 8.2 mg/dL (8.5-10.1); Chloride 110 mmol/L (98-107); Creatinine, Serum 0.78 mg/dL (0.70-1.30); EST Glomerular Filtration Rate 102 mL/min (>60); Est Glom Filt Rate - Afr Amer 124 mL/min (>60); Estimated Creatinine Clearance 55.83 ml/min; Glucose 108 mg/dL (74-106); Potassium 3.7 mmol/L (3.5-5.1); Sodium Level 143 mmol/L (136-145)
[2022-08-08] MEDS: Ascorbic Acid 500 MG Tablet PO ×2 (08:27→17:35)
--- NOTE | 2022-08-08 09:59 | CASEMGMT ---
Social Work Chart review completed for initial assessment. Pt is unable to complete assessment questions. SW left voicemail with requesting return call. Peyton Woo, B2B OUTSIDE SALES REPRESENTATIVE RETAIL MARKETING MANAGER
[2022-08-08] MEDS: Tuberculin,Purif.prot.deriv. 50 TU/ML Vial 0.1 ML ID (11:25)
[2022-08-08] MEDS: Ferrous Sulfate 325 MG Tablet PO (11:39)
--- NOTE | 2022-08-08 11:39 | CASEMGMT ---
Social Work returned phone call and answered assessment questions. SW verified and updated contacts. Educated to [facility] insurance with [employer] 08/11 and continued stay is not guaranteed with each review. 's plan is for pt to return home with her. Two son's work realtime reporter but DIL that lives upstairs, does not work and can assist as needed. SW to continue to follow for DC planning. Peyton Woo, NEUROLOGICAL SURGERY TEACHER MILK ROUTE SUPERVISOR
--- NOTE | 2022-08-08 12:06 | NURSING ---
[employer] Developer Note; Activity Asset: Rory Kwan was admitted for therapy. He is able to express what type of daily activities he would like to do and needs assistance with setting them up for him to do independently. Aquiles also needs reminded of group activities and assistance to them if he prefers to attend. Aquiles will read, watch tv and visit w/family and friends. Staff will bring Aquiles to the day room and he can read or watch TV their as well.
[2022-08-08 15:42] VITALS: BP 125/68; PULSE 98; RESP 16; TEMP 36.5
[2022-08-08] MEDS: Tamsulosin HCl 0.4 MG Capsule PO (17:35)
[2022-08-08 20:24] VITALS: PULSE 104; RESP 16; O2SAT 95
[2022-08-08] MEDS: OLANZapine 2.5 MG Tablet 7.5 MG PO (20:43)
[2022-08-08] MEDS: Pravastatin 80 MG Tablet PO (20:43)
[2022-08-08] MEDS: traZODone 100 MG Tablet PO (20:43)
[2022-08-09] MEDS: DiphenhydrAMINE 25 MG Capsule PO (01:44)
[2022-08-09 05:10] VITALS: BP 117/67; PULSE 98
[2022-08-09] MEDS: Menthol/Lanolin/Calamine/Znox 113 GM Tube 1 APPLIC TOPICAL ×2 (05:18→17:38)
[2022-08-09] MEDS: oxyCODONE 5 MG Tablet PO (05:18)
[2022-08-09] MEDS: Senna/Docusate Sodium 1 Tablet 2 TABLET PO (05:19)
[2022-08-09] MEDS: Acetaminophen 500 MG Tablet 1000 MG PO ×3 (05:19→21:22)
[2022-08-09] MEDS: lamoTRIgine 100 MG Tablet PO (05:19)
[2022-08-09] MEDS: amLODIPine 2.5 MG Tablet PO (05:19)
[2022-08-09] MEDS: Tolterodine Tartrate 4 MG CAP.SA PO (05:19)
[2022-08-09] MEDS: Famotidine 20 MG Tablet PO (05:19)
[2022-08-09] MEDS: Ensure Plus High Protein 120 ML LIQUID PO ×4 (05:19→21:22)
[2022-08-09] MEDS: APIXABAN 2.5 MG TABLET (WCH) PO ×2 (05:19→17:37)
[2022-08-09] MEDS: Ascorbic Acid 500 MG Tablet PO ×2 (08:53→17:38)
[2022-08-09] MEDS: Ferrous Sulfate 325 MG Tablet PO (12:22)
[2022-08-09 12:35] VITALS: PULSE 108; RESP 16; O2SAT 99
[2022-08-09 13:21] VITALS: BP 123/65; PULSE 105; RESP 17; TEMP 36.4; O2SAT 94
[2022-08-09] MEDS: Tamsulosin HCl 0.4 MG Capsule PO (17:36)
[2022-08-09] MEDS: traZODone 100 MG Tablet PO (21:22)
[2022-08-09] MEDS: Pravastatin 80 MG Tablet PO (21:22)
[2022-08-09] MEDS: OLANZapine 2.5 MG Tablet 7.5 MG PO (21:22)
[2022-08-10 06:02] LABS: Hematocrit 29.8 % (40-54); Hemoglobin 9.4 g/dL (13.0-16.5)
[2022-08-10] MEDS: Famotidine 20 MG Tablet PO (06:44)
[2022-08-10] MEDS: Acetaminophen 500 MG Tablet 1000 MG PO ×3 (06:44→22:13)
[2022-08-10] MEDS: APIXABAN 2.5 MG TABLET (WCH) PO ×2 (06:44→17:55)
[2022-08-10] MEDS: Tolterodine Tartrate 4 MG CAP.SA PO (06:44)
[2022-08-10] MEDS: Ensure Plus High Protein 120 ML LIQUID PO ×4 (06:44→22:14)
[2022-08-10] MEDS: amLODIPine 2.5 MG Tablet PO (06:44)
[2022-08-10] MEDS: lamoTRIgine 100 MG Tablet PO (06:44)
[2022-08-10] MEDS: Menthol/Lanolin/Calamine/Znox 113 GM Tube 1 APPLIC TOPICAL ×2 (06:52→17:55)
[2022-08-10] MEDS: Ascorbic Acid 500 MG Tablet PO ×2 (08:08→17:54)
[2022-08-10] MEDS: Ferrous Sulfate 325 MG Tablet PO (12:06)
[2022-08-10 13:29] VITALS: BP 111/68; PULSE 92; RESP 17; TEMP 36.2; O2SAT 97
[2022-08-10] MEDS: Tamsulosin HCl 0.4 MG Capsule PO (17:54)
[2022-08-10] MEDS: OLANZapine 2.5 MG Tablet 7.5 MG PO (22:13)
[2022-08-10] MEDS: Pravastatin 80 MG Tablet PO (22:14)
[2022-08-10] MEDS: traZODone 100 MG Tablet PO (22:14)
[2022-08-11] MEDS: Acetaminophen 500 MG Tablet 1000 MG PO ×3 (06:35→21:25)
[2022-08-11] MEDS: Ensure Plus High Protein 120 ML LIQUID PO ×4 (06:36→21:23)
[2022-08-11] MEDS: Menthol/Lanolin/Calamine/Znox 113 GM Tube 1 APPLIC TOPICAL ×2 (06:36→17:45)
[2022-08-11] MEDS: APIXABAN 2.5 MG TABLET (WCH) PO ×2 (06:36→17:46)
[2022-08-11] MEDS: lamoTRIgine 100 MG Tablet PO (06:36)
[2022-08-11] MEDS: Famotidine 20 MG Tablet PO (06:36)
[2022-08-11] MEDS: Tolterodine Tartrate 4 MG CAP.SA PO (06:36)
[2022-08-11] MEDS: amLODIPine 2.5 MG Tablet PO (06:37)
[2022-08-11 06:45] VITALS: BP 118/69; PULSE 76
[2022-08-11] MEDS: Ascorbic Acid 500 MG Tablet PO ×2 (08:52→17:45)
--- NOTE | 2022-08-11 10:24 | PHA.CONS_ITS ---
TCU RX Drug Regimen Review Subjective: TCU Admission. 77 YOM presented to the ER with fall. Hospitalized for left hip fracture, underwent left hip hemiarthroplasty 08/05/[address] Bernal. Admitted to TCU with debility for strengthening and rehabilitation. Objective: Allergies pseudoephedrine Allergy (Verified 08/04/22 14:38) SEVERE HEADACHE triprolidine Allergy (Verified 08/04/22 14:38) SEVERE HEADACHE Current Medications Generic Name Dose Route Start Last Admin Trade Name Freq PRN Reason Stop Dose Admin Acetaminophen 1,000 mg 08/07/22 22:00 08/11/22 06:35 Acetaminophen 500 Mg Tablet PO 1,000 mg Q8 FADIA Administration Amlodipine Besylate 2.5 mg 08/08/22 06:00 08/11/22 06:37 Amlodipine 2.5 Mg Tablet PO 2.5 mg DAILY FADIA Administration Apixaban 2.5 mg 08/07/22 18:00 08/11/22 06:36 Apixaban 2.5 Mg Tablet ([facility]) PO 09/06/22 18:01 2.5 mg BID FADIA Administration Ascorbic Acid 500 mg 08/07/22 17:00 08/11/22 08:52 Ascorbic Acid 500 Mg Tablet PO 500 mg BIDCM FADIA Administration Aspirin 81 mg 09/08/22 06:00 Aspirin E.C. 81 Mg Tablet PO DAILY [facility] Bisacodyl 10 mg 08/07/22 16:38 Bisacodyl 10 Mg Suppository RC X1 PRN Constipation Calamine/Phenol 1 applic 08/07/22 18:00 08/11/22 06:36 Menthol/Lanolin/Calamine/Znox 113 Gm Tube TOPICAL 1 applic BID FADIA Administration Protocol Diphenhydramine HCl 25 mg 08/07/22 16:30 08/09/22 01:44 Diphenhydramine 25 Mg Capsule PO 25 mg Q6H PRN PRN Administration ASSERTIVE BEHAVIOR Famotidine 20 mg 08/08/22 06:00 08/11/22 06:36 Famotidine 20 Mg Tablet PO 20 mg DAILY FADIA Administration Ferrous Sulfate 325 mg 08/08/22 12:00 08/10/22 12:06 Ferrous Sulfate 325 Mg Tablet PO 325 mg DAILY@1200 FADIA Administration Lamotrigine 100 mg 08/08/22 06:00 08/11/22 06:36 Lamotrigine 100 Mg Tablet PO 100 mg DAILY FADIA Administration Nutritional Formula (Lactose Free) 120 ml 08/07/22 17:00 08/11/22 06:36 Ensure Plus High Protein 120 Ml Liquid PO 120 ml 4X/DAY FADIA Administration Olanzapine 7.5 mg 08/07/22 22:00 08/10/22 22:13 Olanzapine 2.5 Mg Tablet PO 7.5 mg QHS FADIA Administration Oxycodone HCl 2.5 - 5 mg 08/07/22 21:40 08/09/22 05:18 Oxycodone 5 Mg Tablet PO 5 mg Q4H PRN PRN Administration Pain Score 4-10 Pravastatin Sodium 80 mg 08/07/22 22:00 08/10/22 22:14 Pravastatin 80 Mg Tablet PO 80 mg QHS FADIA Administration Senna/Docusate Sodium 2 tablet 08/08/22 06:00 08/11/22 06:35 Senna/Docusate Sodium 1 Tablet PO Not Given BID [facility] Sodium Chloride 10 - 40 ml 08/07/22 16:26 0.9% Saline Lock 10 Ml Syringe IV UD PRN SALINE FLUSH Tamsulosin HCl 0.4 mg 08/07/22 17:30 08/10/22 17:54 Tamsulosin Hcl 0.4 Mg Capsule PO 0.4 mg DAILY@1730 FADIA Administration Tolterodine Tartrate 4 mg 08/08/22 06:00 08/11/22 06:36 Tolterodine Tartrate 4 Mg Cap.Sa PO 4 mg DAILY FADIA Administration Trazodone HCl 100 mg 08/07/22 22:00 08/10/22 22:14 Trazodone 100 Mg Tablet PO 100 mg QHS FADIA Administration Tuberculin PPD 0.1 ml 08/15/22 10:00 Tuberculin,Purif.Prot.Deriv. 50 Tu/Ml Vial ID 08/15/22 10:01 X1 ONE Problem List (Last Reviewed 08/07/22 @ 20:[address] Vikas Mccormack MD) Anoxic brain injury (Acute) Coronary artery disease (Acute) Seizure disorder (Acute) Hyperlipidemia (Acute) Insomnia (Acute) Overactive bladder (Acute) GERD (gastroesophageal reflux disease) (Acute) Hypertension (Chronic) Prinzmetal angina (Acute) Closed left hip fracture (Acute) Debility (Acute) Vital Signs Temp Pulse Resp BP Pulse Ox O2 Del Method 97.1 F L 76 17 118/69 97 Room Air 08/10/22 13:29 08/11/22 06:45 08/10/22 13:29 08/11/22 06:45 08/10/22 13:29 08/10/22 22:15 Oxygen Delivery Method Room Air Weight: 66.423 kg Body Mass Index (BMI) 22.9 Sodium 143 mmol/L (136-145) 08/08/22 05:10 Potassium 3.7 mmol/L (3.5-5.1) 08/08/22 05:10 Chloride 110 mmol/L (98-107) H 08/08/22 05:10 Carbon Dioxide 28.0 mmol/L (21.0-32.0) 08/08/22 05:10 Anion Gap 5 (5-15) 08/08/22 05:10 BUN 19 mg/dL (7-18) H 08/08/22 05:10 Creatinine 0.78 mg/dL (0.70-1.30) 08/08/22 05:10 Est GFR (MDRD) Af Amer 124 mL/min (>60) 08/08/22 05:10 Est GFR (MDRD) Non-Af 102 mL/min (>60) 08/08/22 05:10 BUN/Creatinine Ratio 24.3 RATIO (10-20) H 08/08/22 05:10 Glucose 108 mg/dL (74-106) H 08/08/22 05:10 Assessment/Plan: 1. Pain: acetaminophen 1000mg PO Q8 and oxycodone 2.5-5mg PO Q4H PRN pain 4-10. Resident has had 2 doses of oxycodone for pain of 5 in the hip. Please continue to monitor for increased pain, PRN usage, constipation and respiratory depression. 2. Bowel: senna/docusate 2T PO BID and bisacodyl 10mg RC x1 PRN constipation. R esident has not had any PRN doses. Please consider changing senna/docusate to PRN as the resident has refused the last 4/7 doses. Thanks. No documented bowel movements but refusal reasons on senna/docusate say increased BM/diarrhea. 3. DVT prophylaxis: apixaban 2.5mg PO BID thru 09/06/22. Please continue to monitor for S/S of bleeding/DVT and hemoglobin (last 9.4g/dL). 4. Hypertension: amlodipine 2.5mg PO daily. Please continue to monitor BP (last 118/69) and swelling. 5. CAD: aspirin 81mg PO daily starting 09/08/22. Please continue to monitor. 6. Seizure disorder: lamotrigine 100mg PO daily. Please continue to monitor for S/S of seizures, serious rash (black box warning) and falls/fractures (BEERs criteria). 7. Iron deficiency anemia: ferrous sulfate 325mg PO daily and ascorbic acid 5 00mg PO BIDCM. Please continue to monitor hemoglobin (last 9.4g/dL), constipation and dark stools. 8. GERD: famotidine 20mg PO daily. Please continue to monitor for S/S of GERD and renal function. 9. Hyperlipidemia: pravastatin 80mg PO QHS. Please continue to monitor lipid panel (last 04/24/22), LFTs (last 04/24/22) and muscle pain. 10. BPH: tamsulosin 0.4mg PO daily. Please continue to monitor BP and S/S of BPH. 11. Overactive bladder: tolterodine 4mg PO daily. Please continue to monitor for S/S of overactive bladder, dementia/delirium (BEERs criteria). Assessment/Plan for indications treated with psychotropic medications: 1. Anoxic brain injury: diphenhydramine 25mg PO Q6H PRN assertive behavior and olanzapine 7.5mg PO QHS. Resident has had 1 dose of diphenhydramine. Please continue to monitor for excessive sedation, PRN usage, dementia/delirium (BEERs list), falls/fractures (BEERs list), decreased urinary flow/increased urinary retention (BEERs list, on medications), sodium (last 143mmol/L, BEERs list) and stroke (BEERs list). 2. Insomnia: trazodone 100mg PO QHS. Please consider GDR by 01/2023 if clinically appropriate. Please continue to monitor for insomnia and excessive drowsiness. Medical chart and medication regimen reviewed. The following medication irregularities or issues were identified: *1. Trazodone 100mg PO QHS. Please consider GDR by 01/2023 if clinically appropriate. *2. Senna/docusate 2T PO BID. Please consider changing senna/docusate to PRN as the resident has refused the last 4/7 doses. Thanks. Date of Note:: 08/11/22
[2022-08-11] MEDS: Ferrous Sulfate 325 MG Tablet PO (11:38)
[2022-08-11 15:27] VITALS: BP 112/61; PULSE 99; RESP 25; TEMP 37.4; O2SAT 95
--- NOTE | 2022-08-11 16:31 | NURSING ---
Patient and updated that staff member tested covid positive.
[2022-08-11] MEDS: Tamsulosin HCl 0.4 MG Capsule PO (17:45)
[2022-08-11] MEDS: Senna/Docusate Sodium 1 Tablet 2 TABLET PO (17:47)
[2022-08-11] MEDS: OLANZapine 2.5 MG Tablet 7.5 MG PO (21:25)
[2022-08-11] MEDS: Pravastatin 80 MG Tablet PO (21:25)
[2022-08-11] MEDS: traZODone 100 MG Tablet PO (21:26)
[2022-08-12] MEDS: oxyCODONE 5 MG Tablet PO ×3 (00:18→21:33)
[2022-08-12] MEDS: Ensure Plus High Protein 120 ML LIQUID PO ×3 (05:31→21:34)
[2022-08-12] MEDS: Famotidine 20 MG Tablet PO (05:32)
[2022-08-12] MEDS: lamoTRIgine 100 MG Tablet PO (05:32)
[2022-08-12] MEDS: amLODIPine 2.5 MG Tablet PO (05:32)
[2022-08-12] MEDS: Senna/Docusate Sodium 1 Tablet 2 TABLET PO ×2 (05:32→17:24)
[2022-08-12] MEDS: APIXABAN 2.5 MG TABLET (WCH) PO ×2 (05:32→17:24)
[2022-08-12] MEDS: Tolterodine Tartrate 4 MG CAP.SA PO (05:32)
[2022-08-12] MEDS: Menthol/Lanolin/Calamine/Znox 113 GM Tube 1 APPLIC TOPICAL ×2 (05:32→17:24)
[2022-08-12] MEDS: Acetaminophen 500 MG Tablet 1000 MG PO ×3 (05:33→21:32)
[2022-08-12 05:38] VITALS: BP 129/70; PULSE 93; RESP 16
[2022-08-12] MEDS: Ascorbic Acid 500 MG Tablet PO ×2 (09:06→17:24)
[2022-08-12] MEDS: Ferrous Sulfate 325 MG Tablet PO (14:07)
[2022-08-12 14:49] VITALS: BP 111/63; PULSE 104; RESP 18; TEMP 36.4; O2SAT 96
--- NOTE | 2022-08-12 16:03 | CASEMGMT ---
in agreement to provide copies of advanced directives.
[2022-08-12] MEDS: Bisacodyl 10 MG Suppository RC (16:24)
[2022-08-12 16:40] VITALS: BMI 22.3
[2022-08-12] MEDS: Tamsulosin HCl 0.4 MG Capsule PO (17:24)
[2022-08-12] MEDS: Pravastatin 80 MG Tablet PO (21:32)
[2022-08-12] MEDS: traZODone 100 MG Tablet PO (21:32)
[2022-08-12] MEDS: OLANZapine 2.5 MG Tablet 7.5 MG PO (21:32)
[2022-08-12] MEDS: DiphenhydrAMINE 25 MG Capsule PO (21:33)
[2022-08-13] MEDS: oxyCODONE 5 MG Tablet PO ×2 (03:22→08:43)
[2022-08-13] MEDS: Tolterodine Tartrate 4 MG CAP.SA PO (06:49)
[2022-08-13] MEDS: APIXABAN 2.5 MG TABLET (WCH) PO ×2 (06:50→17:34)
[2022-08-13] MEDS: Famotidine 20 MG Tablet PO (06:50)
[2022-08-13] MEDS: lamoTRIgine 100 MG Tablet PO (06:50)
[2022-08-13] MEDS: Acetaminophen 500 MG Tablet 1000 MG PO ×3 (06:50→21:53)
[2022-08-13] MEDS: Senna/Docusate Sodium 1 Tablet 2 TABLET PO ×2 (06:50→17:35)
[2022-08-13] MEDS: amLODIPine 2.5 MG Tablet PO (06:50)
[2022-08-13] MEDS: Menthol/Lanolin/Calamine/Znox 113 GM Tube 1 APPLIC TOPICAL ×2 (06:51→17:34)
[2022-08-13] MEDS: Ensure Plus High Protein 120 ML LIQUID PO ×4 (07:03→21:56)
[2022-08-13] MEDS: Ascorbic Acid 500 MG Tablet PO ×2 (08:43→17:34)
[2022-08-13 10:02] VITALS: PULSE 108; O2SAT 98
--- NOTE | 2022-08-13 10:24 | CASEMGMT ---
Social Work IDT met with patient and for care plan meeting. Discussed patient's progress in PT/OT/ST/SN. [facility] [place] with [facility] 08/25. Inquired to about level of assistance she can provide at home. states pt will need to transfer and ambulate with [facility]. is purchasing a shower chair. SW to coordinate DC needs. Son and DIL do live in upstairs level that can assist as able too. will stay for OT session today and be present for PT session tomorrow. Staff assessment completed for MDS assessment. Peyton Woo, DEEDEE SENIOR SQL SERVER DBA
[2022-08-13] MEDS: Ferrous Sulfate 325 MG Tablet PO (13:44)
[2022-08-13 14:14] VITALS: BP 120/67; PULSE 100; RESP 16; TEMP 36.1; O2SAT 96
[2022-08-13] MEDS: Tamsulosin HCl 0.4 MG Capsule PO (17:34)
[2022-08-13] MEDS: Pravastatin 80 MG Tablet PO (21:53)
[2022-08-13] MEDS: traZODone 100 MG Tablet PO (21:54)
[2022-08-13] MEDS: OLANZapine 2.5 MG Tablet 7.5 MG PO (21:54)
[2022-08-14] MEDS: Menthol/Lanolin/Calamine/Znox 113 GM Tube 1 APPLIC TOPICAL ×2 (04:53→17:56)
[2022-08-14] MEDS: Tolterodine Tartrate 4 MG CAP.SA PO (04:59)
[2022-08-14] MEDS: Ensure Plus High Protein 120 ML LIQUID PO ×4 (04:59→20:50)
[2022-08-14] MEDS: amLODIPine 2.5 MG Tablet PO (04:59)
[2022-08-14] MEDS: Senna/Docusate Sodium 1 Tablet 2 TABLET PO (04:59)
[2022-08-14] MEDS: lamoTRIgine 100 MG Tablet PO (04:59)
[2022-08-14] MEDS: Famotidine 20 MG Tablet PO (04:59)
[2022-08-14] MEDS: Acetaminophen 500 MG Tablet 1000 MG PO ×3 (04:59→20:51)
[2022-08-14] MEDS: APIXABAN 2.5 MG TABLET (WCH) PO ×2 (04:59→17:57)
[2022-08-14 05:00] VITALS: BP 116/61; PULSE 94; RESP 16
[2022-08-14] MEDS: Ascorbic Acid 500 MG Tablet PO ×2 (08:19→17:57)
[2022-08-14] MEDS: oxyCODONE 5 MG Tablet PO (10:34)
[2022-08-14] MEDS: Ferrous Sulfate 325 MG Tablet PO (12:04)
--- NOTE | 2022-08-14 12:42 | MDS.RN ---
Spouse assisted with pain interview with resident for MDS
[2022-08-14 14:47] VITALS: BP 120/65; PULSE 104; RESP 21; TEMP 36.5; O2SAT 98
[2022-08-14] MEDS: Tamsulosin HCl 0.4 MG Capsule PO (17:57)
[2022-08-14] MEDS: OLANZapine 2.5 MG Tablet 7.5 MG PO (20:51)
[2022-08-14] MEDS: traZODone 100 MG Tablet PO (20:51)
[2022-08-14] MEDS: Pravastatin 80 MG Tablet PO (20:52)
[2022-08-15 05:55] LABS: Absolute Lymphocyte Count 1.75 X10^3/uL (0.83-4.51); Absolute Neutrophil Count 8.7 X10^3/uL (2.0-7.7); Basophil# 0.06 X10^3/uL; Basophil% 0.5 % (0-1); Eosinophil# 0.19 X10^3/uL; Eosinophils% 1.6 % (0-5); Hematocrit 31.3 % (40-54); Hemoglobin 9.6 g/dL (13.0-16.5); Lymphocyte # 1.75 X10^3/ul (0.83-4.51); Lymphocyte % 14.5 % (19-41); Mean Corp Hgb Conc 30.7 g/dL (32-36); Mean Corpuscular Hgb 26.4 pg (27.0-32.0); Mean Platelet Vol. 10.2 fl (6.2-12.0); Monocyte% 8.3 % (0-10); NRBC Flagged by Analyzer 0 % (0-5); Platelet Count 449 K/mm3 (150-450); RBC Distribution Width CV 15.9 % (11.6-14.6); RBC Distribution Width SD 47.3 fl (35.1-43.9); Red Blood Count 3.64 M/mm3 (4.6-6.2); White Blood Count 12.1 K/mm3 (4.4-11.0)
[2022-08-15 06:15] VITALS: BP 108/62; PULSE 91
[2022-08-15] MEDS: Senna/Docusate Sodium 1 Tablet 2 TABLET PO (06:18)
[2022-08-15] MEDS: APIXABAN 2.5 MG TABLET (WCH) PO ×2 (06:19→17:33)
[2022-08-15] MEDS: Menthol/Lanolin/Calamine/Znox 113 GM Tube 1 APPLIC TOPICAL ×2 (06:19→17:32)
[2022-08-15] MEDS: Famotidine 20 MG Tablet PO (06:19)
[2022-08-15] MEDS: Ensure Plus High Protein 120 ML LIQUID PO ×4 (06:19→20:01)
[2022-08-15] MEDS: lamoTRIgine 100 MG Tablet PO (06:19)
[2022-08-15] MEDS: Tolterodine Tartrate 4 MG CAP.SA PO (06:19)
[2022-08-15] MEDS: amLODIPine 2.5 MG Tablet PO (06:19)
[2022-08-15] MEDS: Acetaminophen 500 MG Tablet 1000 MG PO ×3 (06:19→20:01)
[2022-08-15 06:33] LABS: Anion Gap 3 (5-15); BUN 30 mg/dL (7-18); BUN/Creat Ratio 36.5 RATIO (10-20); Calcium,Total 8.6 mg/dL (8.5-10.1); Chloride 111 mmol/L (98-107); Creatinine, Serum 0.82 mg/dL (0.70-1.30); EST Glomerular Filtration Rate 97 mL/min (>60); Est Glom Filt Rate - Afr Amer 117 mL/min (>60); Estimated Creatinine Clearance 68.08 ml/min; Glucose 106 mg/dL (74-106); Potassium 4.1 mmol/L (3.5-5.1); Sodium Level 140 mmol/L (136-145)
[2022-08-15] MEDS: Ascorbic Acid 500 MG Tablet PO ×2 (09:00→17:33)
--- NOTE | 2022-08-15 10:13 | NURSING ---
Camp Director Note; MDS Complete
[2022-08-15 11:37] VITALS: BP 114/57; PULSE 87; RESP 16; TEMP 36.6; O2SAT 98
[2022-08-15] MEDS: Ferrous Sulfate 325 MG Tablet PO (14:56)
[2022-08-15] MEDS: Tuberculin,Purif.prot.deriv. 50 TU/ML Vial 0.1 ML ID (14:57)
[2022-08-15] MEDS: Tamsulosin HCl 0.4 MG Capsule PO (17:32)
[2022-08-15] MEDS: Pravastatin 80 MG Tablet PO (20:01)
[2022-08-15] MEDS: OLANZapine 2.5 MG Tablet 7.5 MG PO (20:01)
[2022-08-15] MEDS: traZODone 100 MG Tablet PO (20:01)
[2022-08-16] MEDS: Acetaminophen 500 MG Tablet 1000 MG PO ×3 (07:02→20:36)
[2022-08-16] MEDS: Senna/Docusate Sodium 1 Tablet 2 TABLET PO (07:02)
[2022-08-16] MEDS: amLODIPine 2.5 MG Tablet PO (07:03)
[2022-08-16] MEDS: Famotidine 20 MG Tablet PO (07:03)
[2022-08-16] MEDS: lamoTRIgine 100 MG Tablet PO (07:03)
[2022-08-16] MEDS: Tolterodine Tartrate 4 MG CAP.SA PO (07:03)
[2022-08-16] MEDS: APIXABAN 2.5 MG TABLET (WCH) PO ×2 (07:03→17:30)
[2022-08-16] MEDS: Ensure Plus High Protein 120 ML LIQUID PO ×4 (07:04→20:24)
[2022-08-16] MEDS: Menthol/Lanolin/Calamine/Znox 113 GM Tube 1 APPLIC TOPICAL ×2 (07:04→17:30)
[2022-08-16] MEDS: Ascorbic Acid 500 MG Tablet PO ×2 (08:28→17:30)
[2022-08-16] MEDS: Ferrous Sulfate 325 MG Tablet PO (11:23)
[2022-08-16 15:05] VITALS: BP 103/58; PULSE 83; RESP 16; TEMP 36; O2SAT 99
[2022-08-16] MEDS: Tamsulosin HCl 0.4 MG Capsule PO (17:30)
[2022-08-16 20:25] VITALS: PULSE 87; RESP 16; O2SAT 96
[2022-08-16] MEDS: OLANZapine 2.5 MG Tablet 7.5 MG PO (20:33)
[2022-08-16] MEDS: Pravastatin 80 MG Tablet PO (20:33)
[2022-08-16] MEDS: traZODone 100 MG Tablet PO (20:35)
--- NOTE | 2022-08-17 00:20 | NURSING ---
Pt noted to be in his doorway with an assistive device. Alarm did not sound. This nurse and two additional staff assisted pt back to bed. Alarm in place. Brief changed. In no acute distress. Positioned for comfort. Call light w/ in reach. Camera in use. Will continue to monitor.
[2022-08-17] MEDS: Ensure Plus High Protein 120 ML LIQUID PO ×4 (05:13→20:53)
[2022-08-17] MEDS: Tolterodine Tartrate 4 MG CAP.SA PO (05:14)
[2022-08-17] MEDS: lamoTRIgine 100 MG Tablet PO (05:14)
[2022-08-17] MEDS: Famotidine 20 MG Tablet PO (05:14)
[2022-08-17] MEDS: amLODIPine 2.5 MG Tablet PO (05:14)
[2022-08-17] MEDS: Menthol/Lanolin/Calamine/Znox 113 GM Tube 1 APPLIC TOPICAL ×2 (05:15→17:01)
[2022-08-17] MEDS: APIXABAN 2.5 MG TABLET (WCH) PO ×2 (05:15→17:01)
[2022-08-17] MEDS: Acetaminophen 500 MG Tablet 1000 MG PO ×3 (05:16→20:53)
[2022-08-17 05:20] VITALS: BP 125/69; PULSE 97
[2022-08-17] MEDS: Ascorbic Acid 500 MG Tablet PO ×2 (08:24→17:01)
[2022-08-17 10:00] VITALS: PULSE 80; RESP 16; O2SAT 96
[2022-08-17] MEDS: Ferrous Sulfate 325 MG Tablet PO (11:58)
[2022-08-17 16:00] VITALS: BP 118/70; PULSE 89; RESP 14; TEMP 36.4; O2SAT 92
[2022-08-17] MEDS: Senna/Docusate Sodium 1 Tablet 2 TABLET PO (17:00)
[2022-08-17] MEDS: Tamsulosin HCl 0.4 MG Capsule PO (17:01)
[2022-08-17] MEDS: oxyCODONE 5 MG Tablet PO (20:51)
[2022-08-17] MEDS: OLANZapine 2.5 MG Tablet 7.5 MG PO (20:52)
[2022-08-17] MEDS: Pravastatin 80 MG Tablet PO (20:53)
[2022-08-17] MEDS: traZODone 100 MG Tablet PO (20:53)
[2022-08-18] MEDS: Senna/Docusate Sodium 1 Tablet 2 TABLET PO ×2 (06:04→18:33)
[2022-08-18] MEDS: Ensure Plus High Protein 120 ML LIQUID PO ×4 (06:04→20:53)
[2022-08-18] MEDS: Acetaminophen 500 MG Tablet 1000 MG PO ×3 (06:04→20:54)
[2022-08-18] MEDS: Famotidine 20 MG Tablet PO (06:05)
[2022-08-18] MEDS: lamoTRIgine 100 MG Tablet PO (06:05)
[2022-08-18] MEDS: Tolterodine Tartrate 4 MG CAP.SA PO (06:05)
[2022-08-18] MEDS: APIXABAN 2.5 MG TABLET (WCH) PO ×2 (06:05→18:33)
[2022-08-18] MEDS: amLODIPine 2.5 MG Tablet PO (06:05)
[2022-08-18] MEDS: Menthol/Lanolin/Calamine/Znox 113 GM Tube 1 APPLIC TOPICAL ×2 (06:06→18:34)
[2022-08-18] MEDS: Ascorbic Acid 500 MG Tablet PO ×2 (06:06→18:34)
[2022-08-18 06:12] VITALS: BP 104/61; PULSE 81
[2022-08-18] MEDS: oxyCODONE 5 MG Tablet PO ×2 (09:10→21:51)
[2022-08-18] MEDS: Ferrous Sulfate 325 MG Tablet PO (11:55)
[2022-08-18 14:57] VITALS: BP 120/64; PULSE 76; RESP 14; TEMP 36.4; O2SAT 97
[2022-08-18] MEDS: Tamsulosin HCl 0.4 MG Capsule PO (18:34)
[2022-08-18] MEDS: traZODone 100 MG Tablet PO (20:53)
[2022-08-18] MEDS: Pravastatin 80 MG Tablet PO (20:54)
[2022-08-18] MEDS: OLANZapine 2.5 MG Tablet 7.5 MG PO (20:54)
[2022-08-18 23:00] VITALS: PULSE 92; RESP 16; O2SAT 96
[2022-08-19] MEDS: Ensure Plus High Protein 120 ML LIQUID PO ×4 (06:35→19:45)
[2022-08-19] MEDS: amLODIPine 2.5 MG Tablet PO (06:35)
[2022-08-19] MEDS: Acetaminophen 500 MG Tablet 1000 MG PO ×3 (06:36→19:47)
[2022-08-19] MEDS: lamoTRIgine 100 MG Tablet PO (06:36)
[2022-08-19] MEDS: Tolterodine Tartrate 4 MG CAP.SA PO (06:36)
[2022-08-19] MEDS: Menthol/Lanolin/Calamine/Znox 113 GM Tube 1 APPLIC TOPICAL ×2 (06:36→17:19)
[2022-08-19] MEDS: Senna/Docusate Sodium 1 Tablet 2 TABLET PO ×2 (06:36→17:17)
[2022-08-19] MEDS: APIXABAN 2.5 MG TABLET (WCH) PO ×2 (06:36→17:18)
[2022-08-19] MEDS: Famotidine 20 MG Tablet PO (06:36)
[2022-08-19] MEDS: Ascorbic Acid 500 MG Tablet PO ×2 (07:51→17:18)
[2022-08-19 10:02] VITALS: BMI 22.8
--- NOTE | 2022-08-19 10:30 | MDS.RN ---
Information for the mds was obtained from review of the clinical record, interview of resident, staff, and direct observation of resident's care.
[2022-08-19 11:04] VITALS: BP 122/87; PULSE 88; RESP 18; TEMP 36.6; O2SAT 95
[2022-08-19] MEDS: Ferrous Sulfate 325 MG Tablet PO (12:10)
[2022-08-19] MEDS: Tamsulosin HCl 0.4 MG Capsule PO (17:18)
[2022-08-19] MEDS: Pravastatin 80 MG Tablet PO (19:47)
[2022-08-19] MEDS: traZODone 100 MG Tablet PO (19:48)
[2022-08-19] MEDS: OLANZapine 2.5 MG Tablet 7.5 MG PO (19:48)
[2022-08-20] MEDS: Acetaminophen 500 MG Tablet 1000 MG PO ×3 (06:55→20:36)
[2022-08-20] MEDS: Ensure Plus High Protein 120 ML LIQUID PO ×4 (06:55→20:35)
[2022-08-20] MEDS: Menthol/Lanolin/Calamine/Znox 113 GM Tube 1 APPLIC TOPICAL ×2 (06:55→16:57)
[2022-08-20] MEDS: Tolterodine Tartrate 4 MG CAP.SA PO (06:56)
[2022-08-20] MEDS: amLODIPine 2.5 MG Tablet PO (06:56)
[2022-08-20] MEDS: Famotidine 20 MG Tablet PO (06:56)
[2022-08-20] MEDS: lamoTRIgine 100 MG Tablet PO (06:56)
[2022-08-20] MEDS: APIXABAN 2.5 MG TABLET (WCH) PO ×2 (06:56→16:57)
[2022-08-20] MEDS: Ascorbic Acid 500 MG Tablet PO ×2 (07:55→16:57)
[2022-08-20] MEDS: Ferrous Sulfate 325 MG Tablet PO (11:54)
[2022-08-20 13:56] VITALS: BP 112/64; PULSE 88; RESP 16; TEMP 36.2; O2SAT 97
[2022-08-20] MEDS: Tamsulosin HCl 0.4 MG Capsule PO (16:57)
[2022-08-20] MEDS: OLANZapine 2.5 MG Tablet 7.5 MG PO (20:35)
[2022-08-20] MEDS: traZODone 100 MG Tablet PO (20:35)
[2022-08-20] MEDS: Pravastatin 80 MG Tablet PO (20:36)
[2022-08-20 21:00] VITALS: PULSE 98; RESP 16; O2SAT 96
[2022-08-21] MEDS: Menthol/Lanolin/Calamine/Znox 113 GM Tube 1 APPLIC TOPICAL ×2 (05:30→17:41)
[2022-08-21] MEDS: lamoTRIgine 100 MG Tablet PO (05:30)
[2022-08-21] MEDS: Acetaminophen 500 MG Tablet 1000 MG PO ×3 (05:30→22:24)
[2022-08-21] MEDS: Famotidine 20 MG Tablet PO (05:30)
[2022-08-21] MEDS: Tolterodine Tartrate 4 MG CAP.SA PO (05:30)
[2022-08-21] MEDS: Ensure Plus High Protein 120 ML LIQUID PO ×4 (05:30→22:22)
[2022-08-21] MEDS: amLODIPine 2.5 MG Tablet PO (05:30)
[2022-08-21] MEDS: APIXABAN 2.5 MG TABLET (WCH) PO ×2 (05:30→17:41)
[2022-08-21] MEDS: Ascorbic Acid 500 MG Tablet PO ×2 (08:25→17:41)
[2022-08-21 11:16] VITALS: PULSE 100; RESP 16; O2SAT 99
[2022-08-21] MEDS: Ferrous Sulfate 325 MG Tablet PO (12:12)
[2022-08-21 13:32] VITALS: BP 110/61; PULSE 86; RESP 18; TEMP 36.3; O2SAT 95
[2022-08-21] MEDS: Tamsulosin HCl 0.4 MG Capsule PO (17:41)
[2022-08-21] MEDS: Pravastatin 80 MG Tablet PO (22:24)
[2022-08-21] MEDS: OLANZapine 2.5 MG Tablet 7.5 MG PO (22:24)
[2022-08-21] MEDS: traZODone 100 MG Tablet PO (22:24)
[2022-08-22] MEDS: Acetaminophen 500 MG Tablet 1000 MG PO ×3 (05:17→21:34)
[2022-08-22] MEDS: Famotidine 20 MG Tablet PO (05:18)
[2022-08-22] MEDS: amLODIPine 2.5 MG Tablet PO (05:18)
[2022-08-22] MEDS: APIXABAN 2.5 MG TABLET (WCH) PO ×2 (05:18→18:26)
[2022-08-22] MEDS: Tolterodine Tartrate 4 MG CAP.SA PO (05:18)
[2022-08-22] MEDS: Ensure Plus High Protein 120 ML LIQUID PO ×4 (05:18→21:34)
[2022-08-22] MEDS: Menthol/Lanolin/Calamine/Znox 113 GM Tube 1 APPLIC TOPICAL ×2 (05:18→18:27)
[2022-08-22 05:24] VITALS: BP 119/62; PULSE 83; RESP 16
[2022-08-22] MEDS: lamoTRIgine 100 MG Tablet PO (07:42)
[2022-08-22] MEDS: Ascorbic Acid 500 MG Tablet PO ×2 (07:43→18:25)
[2022-08-22 07:50] LABS: Absolute Lymphocyte Count 1.39 X10^3/uL (0.83-4.51); Absolute Neutrophil Count 6.3 X10^3/uL (2.0-7.7); Basophil# 0.03 X10^3/uL; Basophil% 0.3 % (0-1); Eosinophil# 0.22 X10^3/uL; Eosinophils% 2.5 % (0-5); Hematocrit 34.2 % (40-54); Hemoglobin 10.3 g/dL (13.0-16.5); Lymphocyte # 1.39 X10^3/ul (0.83-4.51); Mean Corp Hgb Conc 30.1 g/dL (32-36); Mean Corpuscular Hgb 26.2 pg (27.0-32.0); Mean Platelet Vol. 10.2 fl (6.2-12.0); Monocyte# 0.63 X10^3/uL; Monocyte% 7.3 % (0-10); NRBC Flagged by Analyzer 0 % (0-5); Neutrophil # 6.32 X10^3/uL (2.7-7.7); Neutrophil % 72.9 % (47-70); Platelet Count 383 K/mm3 (150-450); RBC Distribution Width CV 17.2 % (11.6-14.6); RBC Distribution Width SD 52.7 fl (35.1-43.9); Red Blood Count 3.93 M/mm3 (4.6-6.2); White Blood Count 8.7 K/mm3 (4.4-11.0)
[2022-08-22 08:23] LABS: Anion Gap 3 (5-15); BUN 26 mg/dL (7-18); BUN/Creat Ratio 32.5 RATIO (10-20); Calcium,Total 9.1 mg/dL (8.5-10.1); Chloride 110 mmol/L (98-107); EST Glomerular Filtration Rate 99 mL/min (>60); Est Glom Filt Rate - Afr Amer 120 mL/min (>60); Estimated Creatinine Clearance 69.78 ml/min; Glucose 98 mg/dL (74-106); Potassium 4.4 mmol/L (3.5-5.1); Sodium Level 141 mmol/L (136-145)
[2022-08-22] MEDS: Ferrous Sulfate 325 MG Tablet PO (11:40)
--- NOTE | 2022-08-22 12:13 | CASEMGMT ---
Addendum entered by Peyton Woo 08/25/22 08:33: [facility] inquired about necessity for SN d/t to staffing. SW followed up with IDT and pt does not need SN. Updated order. Addendum entered by Peyton Woo 08/25/22 08:22: [facility] is the only accepting agency to those referred. SW spoke with and agreeable. Addendum entered by Peyton Woo 08/22/22 16:11: [facility], [facility] are both out of service area. [facility] does not have the staffing. [facility] did not respond. SW referred to the other 3 star agencies, per request. Will continue to follow. Addendum entered by Peyton Woo 08/22/22 13:40: selected: [facility], [facility], [facility] and [facility]. Referral made to [facility]. Original Note: Social Work Insurance issued LCD 08/24, DC 08/25. SW spoke with about DC. agreeable and has purchased all DME. SW to coordinate skilled HHC. will be visiting and requesting printed list. Provided printed list with skilled HHC agencies with quality and resource data via [employer]. to transport. Plan: DC home with 08/25, HHC PT/OT/SN/[facility] DEEDEE Bunch
--- NOTE | 2022-08-22 13:32 | DS.PCM_ITS ---
Providers Date of Admission: 08/07/22 Primary Care Physician: Dr. Juwan Ac MD Reason For Visit: LEFT HIP FRACTURE Diagnosis Discharge Diagnosis (1) Debility: Status: Acute Code(s): R53.81 - Other malaise (2) Closed left hip fracture: Status: Acute Code(s): S72.002A - Fracture of unspecified part of neck of left femur, initial encounter for closed fracture (3) Prinzmetal angina: Status: Acute Code(s): I20.1 - Angina pectoris with documented spasm (4) Hypertension: Status: Chronic Code(s): I10 - Essential (primary) hypertension (5) GERD (gastroesophageal reflux disease): Status: Acute Code(s): K21.9 - Gastro-esophageal reflux disease without esophagitis (6) Overactive bladder: Status: Acute Code(s): N32.81 - Overactive bladder (7) Insomnia: Status: Acute Code(s): G47.00 - Insomnia, unspecified (8) Hyperlipidemia: Status: Acute Code(s): E78.5 - Hyperlipidemia, unspecified (9) Seizure disorder: Status: Acute Code(s): G40.909 - Epilepsy, unspecified, not intractable, without status epilepticus (10) Coronary artery disease: Status: Acute Code(s): I25.10 - Atherosclerotic heart disease of solomon coronary artery without angina pectoris (11) Anoxic brain injury: Status: Acute Code(s): G93.1 - Anoxic brain damage, not elsewhere classified Plan 77 year old male with below past medical history hospitalized for left hip fracture, underwent left hip hemiarthroplasty 08/05/[address] Bernal, admitted to TCU with debility, here for rehabilitation, strengthening, prior to discharge home with . * Debility - PT/OT. * Dysphagia - ST. * Pain - Tylenol 1000mg q8, Oxycodone 2.5mg q4h prn pain (4-10). * Bowel - senna/colace 2 tablets bid, Dulcolax 10mg pr x 1 prn. * Adult immunization - Administer pneumonia vaccine, covid19 vaccine, flu vaccine as appropriate. * DVT prophylaxis - Eliquis 2.5mg bid thru 09/06/2022. * Hypertension - Amlodipine 2.5mg daily. * Iron deficiency anemia - Ferrous sulfate 325mg daliy, Vitamin C 500mg bidcm. * Coronary artery disease - Aspirin 81mg to start 09/08/2022. * Anoxic brain injury - Benadryl 25mg q6h prn, Zyprexa 7.5mg qhs stable chronic intermediate teacher use, GDR not recommended. * Nutrition - Ensure Plus 120ml 4x/day. * GERD - Famotidine 20mg daily. * Seizure disorder - Lamictal 100mg daily. * Skin irritation - Calmoseptine topical bid. * Hyperlipidemia - Pravastatin 80mg qhs. * BPH - Tamsulosin 0.4mg daily. * Overactive bladder - Tolterodine 4mg daily. * Insomnia - Trazodone 100mg qhs. Medications at Discharge Home Medications amlodipine 2.5 mg tablet 2.5 mg PO DAILY HIGH BLOOD PRESSURE 07/04/15 calcium carbonate 600 mg-vitamin D3 20 mcg (800 unit) tablet 1 ea PO BID SUPPLEMENT 07/04/15 famotidine 20 mg tablet 20 mg PO DAILY ACID REFLUX 07/04/15 multivitamin with folic acid 400 mcg tablet 1 tab PO QHS SUPPLEMENT 07/04/15 oxybutynin chloride 15 mg tablet,extended release 24 hr 15 mg PO DAILY OVERACTIVE BLADDER 07/04/15 trazodone 50 mg tablet 100 mg PO QHS INSOMNIA/DEPRESSION 07/04/15 olanzapine 7.5 mg tablet 7.5 mg PO QHS MENTAL HEALTH 12/03/15 lamotrigine 100 mg tablet 100 mg PO DAILY MENTAL HEALTH 09/15/18 diphenhydramine HCl 25 mg capsule (Benadryl) 25 mg PO Q6H PRN ASSERTIVE BEHAVIOR 02/07/21 aspirin 81 mg tablet,delayed release (Adult Low Dose Aspirin) 81 mg PO DAILY [facility] 05/01/22 pravastatin 80 mg tablet 80 mg PO QHS HIGH CHOLESTEROL 08/04/22 acetaminophen 500 mg tablet 1,000 mg PO Q8 Pain 1-10 08/07/22 ascorbic acid (vitamin C) 500 mg tablet 500 mg PO BIDCM Supplement 08/07/22 oxycodone 5 mg tablet 2.5 mg PO Q4H PRN PRN Pain Score 4-10 3 days #7 tabs 08/07/22 acetaminophen 500 mg tablet 1,000 mg PO Q8 #0 tabs 08/22/22 apixaban 2.5 mg tablet (Eliquis) 2.5 mg PO BID Blood Thinner 12 days #24 tabs 08/22/22 ferrous sulfate 325 mg (65 mg iron) tablet (FeroSul) 325 mg PO DAILY@1200 Supplement 30 days #60 tabs 08/22/22 tamsulosin 0.4 mg capsule 0.4 mg PO DAILY@1730 Urinary Retention 30 days #30 caps 08/22/22 Hospital Course Operations - (Left hip hemiarthroplasty.) Procedures None Summary of Care Provided Minutes Spent on Discharge: 35 Hospital Course: 77 year old male with below past medical history hospitalized for left hip fracture, underwent left hip hemiarthroplasty 08/05/[address] Bernal, admitted to TCU with debility, here for rehabilitation, strengthening, prior to discharge home with . Discharge home with 08/25/2022, Home Health Care PT/OT/SN/[facility]. Physical Exam Const alert General Appearance: cooperative HEENT normocephalic Eyes PERRL and EOMs intact bilaterally Neck supple, no JVD and no carotid bruits Resp normal respiratory effort, normal air movement and clear to auscultation bilaterally Cardio regular rate and regular rhythm GI normal to inspection, nondistended, normoactive bowel sounds, non-tender and non-distended Extremity normal capillary refill General Extremity: Negative for edema Skin no rashes or lesions noted General Skin Exam: no breakdown Psych affect normal Appearance: appropriate Weight / BMI Weight Weight: 65.952 kg Body Mass Index (BMI) 22.8 ABG / Lab / Microbiology Data Result Diagrams: 08/22/22 07:30 08/22/22 07:30 Laboratory: Laboratory Results - last 24 hr 08/22/22 07:30: WBC 8.7, RBC 3.93 L, Hgb 10.3 L, Hct 34.2 L, MCV 87.0, MCH 26.2 L, MCHC 30.1 L, RDW Std Deviation 52.7 H, RDW Coeff of Skylar 17.2 H, Plt Count 383, MPV 10.2, Immature Gran % (Auto) 1.000 H, Neut % (Auto) 72.9 H, Lymph % (Auto) 16.0 L, Victoria % (Auto) 7.3, Eos % (Auto) 2.5, Baso % (Auto) 0.3, Absolute Neuts (auto) 6.3, Absolute Lymphs (auto) 1.39, Nucleated RBC % 0 08/22/22 07:30: Sodium 141, Potassium 4.4, Chloride 110 H, Carbon Dioxide 28.0, Anion Gap 3 L, BUN 26 H, Creatinine 0.80, Estim Creat Clear Calc 69.78, Est GFR (MDRD) Af Amer 120, Est GFR (MDRD) Non-Af 99, BUN/Creatinine Ratio 32.5 H, Glucose 98, Calcium 9.1 Microbiology: Microbiology 08/19/22 06:45 Nasal Secretion SARS-CoV-2 Antigen (Rapid) - Final 08/12/22 10:52 Nasal Secretion SARS-CoV-2 Antigen (Rapid) - Final 08/11/22 06:45 Nasal Secretion SARS-CoV-2 Antigen (Rapid) - Final 08/09/22 05:20 Nasal Secretion SARS-CoV-2 Antigen (Rapid) - Final D/C Instructions Discharge Diet: No restrictions Discharge Activity: Return to Normal Activity, May Shower and Use Walker Weight Bearing Status: Weight bearing as tolerated Call your doctor if you observe: Fever of 101 or Higher, Inability to urinate, Inability to have a bowel movement, Shortness of breath, Dizziness, Fainting spells, Swelling in the ankles, Chest pain and Uncontrolled pain Additional Instructions: Discharge home with 08/25/2022, Home Health Care PT/OT/SN/[facility]. Please Follow Up With: Marlo Sanchez When: As scheduled. Meaningful Use Info Meaningful Use Diagnoses (Choose all that apply): None applicable Discharge Plan Admission Admit Date/Time: 08/07/22 16:18 Primary Reason for Your Visit: Debility. Attending Provider: Vikas Mccormack Chi Primary Care Provider: Juwan Ac Instructions Additional Instructions / Restrictions: Discharge home with 08/25/2022, Home Health Care PT/OT/SN/[facility]. Discharge Orders/Prescriptions Prescriptions: New acetaminophen 500 mg Tablet 1,000 mg PO Q8 Qty: 0 0RF Continued aspirin [Adult Low Dose Aspirin] 81 mg tablet,delayed release (DR/EC) 81 mg PO DAILY Hold Instructions: Hold while patient is taking Eliquis 2.5 mg twice daily oxybutynin chloride 15 MG tablet extended release 24hr 15 mg PO DAILY trazodone 50 MG tablet 100 mg PO QHS amlodipine 2.5 MG tablet 2.5 mg PO DAILY famotidine 20 MG tablet 20 mg PO DAILY multivitamin with folic acid 1 TABLET tablet 1 tab PO QHS calcium carbonate-vitamin D3 1 EACH tablet 1 ea PO BID lamotrigine 100 mg tablet 100 mg PO DAILY olanzapine 7.5 MG tablet 7.5 mg PO QHS diphenhydramine HCl [Benadryl] 25 mg Capsule 25 mg PO Q6H PRN (Reason: ASSERTIVE BEHAVIOR) pravastatin 80 mg tablet 80 mg PO QHS ascorbic acid (vitamin C) 500 mg tablet 500 mg PO BIDCM tamsulosin 0.4 mg capsule 0.4 mg PO DAILY@1730 30 Days Qty: 30 0RF ferrous sulfate [FeroSul] 325 mg (65 mg iron) tablet 325 mg PO DAILY@1200 30 Days Qty: 60 0RF Eliquis 2.5 mg tablet 2.5 mg PO BID 12 Days Qty: 24 0RF No Action oxycodone 5 mg Tablet 2.5 mg PO Q4H PRN PRN (Reason: Pain Score 4-10) 3 Days Qty: 7 0RF Rx Instructions: 2.5 mg for moderate pain 4-6/10 intensity and 5 mg for severe 7-10 intensity acetaminophen 500 mg tablet 1,000 mg PO Q8 Rx Instructions: For 7 days and then as needed for mild to moderate pain Referrals / Follow Up: Juwan Ac MD [Primary Care Provider] - Disposition Disposition (needs filled in before D/C Order can be placed): Home Health Service
[2022-08-22 15:50] VITALS: BP 104/57; PULSE 88; RESP 14; TEMP 35.9; O2SAT 94
[2022-08-22] MEDS: Tamsulosin HCl 0.4 MG Capsule PO (18:25)
[2022-08-22] MEDS: Pravastatin 80 MG Tablet PO (21:34)
[2022-08-22] MEDS: traZODone 100 MG Tablet PO (21:34)
[2022-08-22] MEDS: OLANZapine 2.5 MG Tablet 7.5 MG PO (21:34)
[2022-08-23] MEDS: Ensure Plus High Protein 120 ML LIQUID PO ×4 (05:45→22:24)
[2022-08-23] MEDS: Tolterodine Tartrate 4 MG CAP.SA PO (05:47)
[2022-08-23] MEDS: Famotidine 20 MG Tablet PO (05:47)
[2022-08-23] MEDS: lamoTRIgine 100 MG Tablet PO (05:47)
[2022-08-23] MEDS: amLODIPine 2.5 MG Tablet PO (05:47)
[2022-08-23] MEDS: APIXABAN 2.5 MG TABLET (WCH) PO ×2 (05:47→16:55)
[2022-08-23] MEDS: Menthol/Lanolin/Calamine/Znox 113 GM Tube 1 APPLIC TOPICAL ×2 (05:47→16:55)
[2022-08-23] MEDS: Acetaminophen 500 MG Tablet 1000 MG PO ×3 (05:47→22:19)
[2022-08-23 05:52] VITALS: BP 110/61; PULSE 92
[2022-08-23] MEDS: Ascorbic Acid 500 MG Tablet PO ×2 (09:12→16:55)
[2022-08-23] MEDS: Ferrous Sulfate 325 MG Tablet PO (12:43)
[2022-08-23 16:00] VITALS: BP 117/66; PULSE 82; RESP 18; TEMP 36.4; O2SAT 96
[2022-08-23] MEDS: Tamsulosin HCl 0.4 MG Capsule PO (16:55)
[2022-08-23] MEDS: OLANZapine 2.5 MG Tablet 7.5 MG PO (22:18)
[2022-08-23] MEDS: Pravastatin 80 MG Tablet PO (22:19)
[2022-08-23] MEDS: traZODone 100 MG Tablet PO (22:20)
[2022-08-24] MEDS: Acetaminophen 500 MG Tablet 1000 MG PO ×3 (04:42→21:59)
[2022-08-24] MEDS: Famotidine 20 MG Tablet PO (04:42)
[2022-08-24] MEDS: amLODIPine 2.5 MG Tablet PO (04:43)
[2022-08-24] MEDS: Ensure Plus High Protein 120 ML LIQUID PO ×4 (04:43→21:58)
[2022-08-24] MEDS: lamoTRIgine 100 MG Tablet PO (04:43)
[2022-08-24] MEDS: APIXABAN 2.5 MG TABLET (WCH) PO ×2 (04:43→16:42)
[2022-08-24] MEDS: Tolterodine Tartrate 4 MG CAP.SA PO (04:43)
[2022-08-24] MEDS: Menthol/Lanolin/Calamine/Znox 113 GM Tube 1 APPLIC TOPICAL ×2 (04:44→16:42)
[2022-08-24] MEDS: oxyCODONE 5 MG Tablet PO (04:46)
[2022-08-24 04:53] VITALS: BP 109/71; PULSE 83
[2022-08-24] MEDS: Ascorbic Acid 500 MG Tablet PO ×2 (08:11→16:42)
[2022-08-24] MEDS: Ferrous Sulfate 325 MG Tablet PO (12:21)
[2022-08-24 15:06] VITALS: BP 109/62; PULSE 101; RESP 20; TEMP 36.7; O2SAT 95
[2022-08-24] MEDS: Tamsulosin HCl 0.4 MG Capsule PO (16:42)
[2022-08-24] MEDS: Pravastatin 80 MG Tablet PO (22:00)
[2022-08-24] MEDS: OLANZapine 2.5 MG Tablet 7.5 MG PO (22:00)
[2022-08-24] MEDS: traZODone 100 MG Tablet PO (22:00)
[2022-08-25] MEDS: Famotidine 20 MG Tablet PO (05:13)
[2022-08-25] MEDS: lamoTRIgine 100 MG Tablet PO (05:13)
[2022-08-25] MEDS: Acetaminophen 500 MG Tablet 1000 MG PO ×2 (05:13→12:55)
[2022-08-25] MEDS: APIXABAN 2.5 MG TABLET (WCH) PO (05:14)
[2022-08-25] MEDS: amLODIPine 2.5 MG Tablet PO (05:14)
[2022-08-25] MEDS: Tolterodine Tartrate 4 MG CAP.SA PO (05:14)
[2022-08-25] MEDS: Ensure Plus High Protein 120 ML LIQUID PO ×2 (05:16→11:14)
[2022-08-25] MEDS: Menthol/Lanolin/Calamine/Znox 113 GM Tube 1 APPLIC TOPICAL (05:18)
[2022-08-25 05:19] VITALS: BP 118/65; PULSE 83
[2022-08-25] MEDS: Ascorbic Acid 500 MG Tablet PO (07:43)
--- NOTE | 2022-08-25 08:30 | NURSING ---
pt sitting in recliner chair, placed pillow between legs, alarm in place. call light in reach.
[2022-08-25 08:50] VITALS: PULSE 101; O2SAT 98
--- NOTE | 2022-08-25 09:30 | NURSING ---
rounding on pt and noted that he had removed his abduction pillow and had his legs crossed. Explained the importance of not crossing his legs, pt verbalized understanding, but not sure how much he retains. will continue to monitor.
--- NOTE | 2022-08-25 10:19 | NURSING ---
alarm sounding, pt up ambulating toward BR in his room, this typewriter assembly and parts inspector grabbed walker and assisted pt rest of way to toilet. pt cont of BM, hard formed brown in color. incont small amt of urine. clean attends applied, armand care provided. dank applied. assisted pt to bed, fresh cup decaff coffee given per his request. call light in reach. alarm functioning on bed. pt denies any other needs.
[2022-08-25] MEDS: Ferrous Sulfate 325 MG Tablet PO (11:14)
--- NOTE | 2022-08-25 12:49 | CASEMGMT ---
Social Work BIMS (08/30) and PHQ-9 (09/11) completed for MDS assessment. DEEDEE BunchW
[2022-08-25 13:39] VITALS: BP 128/76; PULSE 104; RESP 16; TEMP 36; O2SAT 97
== END 2022-08-25 15:30 | disposition home health service (06) | DRG 560 ==
PROVIDERS: Admitting Provider Family Medicine Geriatric Medicine; PCP Internal Medicine; Visit Provider Family Medicine Geriatric Medicine
DX: S72.002D Fracture of unspecified part of neck of left femur, subsequent encounter for closed fracture with routine healing (principal); G93.1 Anoxic brain damage, not elsewhere classified; G40.909 Epilepsy, unspecified, not intractable, without status epilepticus; I25.118 Atherosclerotic heart disease of native coronary artery with other forms of angina pectoris; I10 Essential (primary) hypertension; I25.5 Ischemic cardiomyopathy; D50.9 Iron deficiency anemia, unspecified; E78.00 Pure hypercholesterolemia, unspecified; K21.9 Gastro-esophageal reflux disease without esophagitis; W07.XXXD Fall from chair, subsequent encounter; N32.81 Overactive bladder; Z87.891 Personal history of nicotine dependence; Z79.899 Other long term (current) drug therapy; Z79.82 Long term (current) use of aspirin; Z79.01 Long term (current) use of anticoagulants; N40.0 Benign prostatic hyperplasia without lower urinary tract symptoms; Z96.642 Presence of left artificial hip joint; G47.00 Insomnia, unspecified
CPT/HCPCS: 36415; 80048; 85014; 85018; 85025; 87426; 87811; 92526; 92610; 97110; 97116; 97162; 97166; 97530; 97535; 97802

== ENCOUNTER → 2022-11-21 | Outpatient (CLI) | payer MEDICARE, SELFPAY ==
[2022-11-21 16:02] LABS: AST(SGOT) 19 U/L (15-37); Alanine Aminotransfer ALT/SGPT 27 U/L (16-61); Albumin, Serum 3.5 g/dL (3.2-5.0); Alkaline Phosphatase 99 U/L (45-117); Bilirubin, Direct 0.15 mg/dL (0.00-0.30); Cholesterol 149 mg/dL (200); Globulin 3.8 g/dL (2.2-4.2); High Density Lipoprotein 51 mg/dL; Protein, Total 7.3 g/dL (6.4-8.2); Triglycerides 145 mg/dL; Very Low Density Lipoprotein 29 mg/dL (5-40)
== END | disposition home or self-care (01) ==
LOC: LAB 14:31
PROVIDERS: PCP Internal Medicine; Referring Provider Internal Medicine Cardiovascular Disease; Visit Provider Internal Medicine Cardiovascular Disease
DX: E78.00 Pure hypercholesterolemia, unspecified (principal)
CPT/HCPCS: 36415; 80061; 80076

== ENCOUNTER → 2023-12-16 | Outpatient (CLI) | payer MEDICARE, SELFPAY ==
[2023-12-16 17:26] LABS: AST(SGOT) 19 U/L (15-37); Alanine Aminotransfer ALT/SGPT 21 U/L (16-61); Albumin, Serum 3.7 g/dL (3.2-5.0); Alkaline Phosphatase 78 U/L (45-117); Cholesterol 151 mg/dL (200); Globulin 3.3 g/dL (2.2-4.2); High Density Lipoprotein 54 mg/dL; Triglycerides 94 mg/dL; Very Low Density Lipoprotein 19 mg/dL (5-40)
== END | disposition home or self-care (01) ==
PROVIDERS: PCP Internal Medicine; Referring Provider Nurse Practitioner Gerontology; Visit Provider Nurse Practitioner Gerontology
DX: I25.10 Atherosclerotic heart disease of native coronary artery without angina pectoris (principal); E78.00 Pure hypercholesterolemia, unspecified
CPT/HCPCS: 36415; 80061; 80076